=== PATIENT | female | born 1995 | race Caucasian/White ===

== ENCOUNTER 2023-02-10 08:46 | Outpatient (OUT) | payer MEDICAID, SELFPAY ==
[2023-02-10 09:23] LABS: Basophils Percent Auto 0.4 % (0.2-2.0); Eosinophils Percent Auto 0.8 % (0.9-7.0); Hematocrit 39.2 % (36.0-48.0); Hemoglobin 13.6 g/dL (12.0-16.0); Immature Granulocytes Abs Auto 0.01 10^3/uL (0.00-0.03); Immature Granulocytes Pct Auto 0.2 % (0.0-0.5); Lymphocytes Absolute Auto 1.4 10^3/uL (1.2-3.8); Lymphocytes Percent Auto 27.5 % (20.5-60.0); Mean Corpuscular HGB Conc 34.7 g/dL (29.9-35.2); Mean Corpuscular Hemoglobin 30.9 pg (26.7-34.0); Mean Corpuscular Volume 89.1 fL (81.0-99.0); Mean Platelet Volume 10.2 fL (9.5-13.5); Monocytes Absolute Auto 0.5 10^3/uL (0.3-0.8); Monocytes Percent Auto 9.2 % (1.7-12.0); Neutrophils Absolute Auto 3.1 10^3/uL (1.4-6.5); Neutrophils Percent Auto 61.9 % (43.0-75.0); Platelet Count 201 10^3/uL (150-450); Red Cell Distribution Width 12.6 % (11.0-15.0)
[2023-02-10 10:27] LABS: Estimated Average Glucose 85 mg/dL; Glycohemoglobin A1C 4.6 % (4.5-6.2)
[2023-02-10 11:20] LABS: Alanine Aminotransferase 24 U/L (14-59); Albumin Globulin Ratio 0.9; Albumin Level 3.9 g/dL (3.4-5.0); Alkaline Phosphatase 59 U/L (46-116); Anion Gap 13.4; Aspartate Amino Transferase 17 U/L (15-37); BUN Creatinine Ratio 7.9; Bilirubin Total 0.3 mg/dL (0.2-1.0); Calcium 9.3 mg/dL (8.5-10.1); Carbon Dioxide 25.3 mmol/L (21.0-32.0); Chloride 105 mmol/L (98-107); Estimated GFR (African America >60 (>=60); Estimated GFR (Non-African Ame >60 (>=60); Globulin 4.5 g/dL; Glucose 92 mg/dL (74-106); Potassium 3.7 mmol/L (3.5-5.1); Sodium 140 mmol/L (136-145); Total Protein 8.4 g/dL (6.4-8.2)
[2023-02-10 11:29] LABS: Chol HDL Ratio 2.6; Cholesterol 185 mg/dL (<=200); HDL Cholesterol 71 mg/dL (40-60); Thyroid Stimulating Hormone 4.024 uIU/mL (0.358-3.740); Triglycerides 117 mg/dL (<=150); VLDL CHOLESTEROL 23.4 mg/dL
[2023-02-11 04:12] LABS: RPR Non Reactive (Non Reactive)
[2023-02-11 06:09] LABS: HIV Ab/p24 Ag Screen Non Reactive (Non Reactive)
[2023-02-11 07:08] LABS: HBsAg Screen Negative (Negative); HCV Ab Non Reactive (Non Reactive); Hep A Ab, IgM Negative (Negative); Hep B Core Ab, IgM Negative (Negative)
[2023-02-11 10:10] LABS: HSV 1 IgG, Type Spec 5.13 index (0.00-0.90); HSV 2 IgG, Type Spec 1.88 index (0.00-0.90)
[2023-02-11 11:09] LABS: Insulin 9.3 uIU/mL (2.6-24.9)
== END 2023-02-10 08:47 ==
PROVIDERS: PCP Family Medicine; Visit Provider Family Medicine
DX: Z00.00 Encounter for general adult medical examination without abnormal findings (principal); J01.90 Acute sinusitis, unspecified
CPT/HCPCS: 36415; 80053; 80061; 80074; 82306; 83036; 83525; 83540; 84436; 84443; 84479; 85025; 86592; 86695; 86696; 87389

== ENCOUNTER 2023-05-05 09:34 | Outpatient (OUT) | payer MEDICAID, SELFPAY ==
--- NOTE | 2023-05-05 09:41 | US_ITS ---
The [address] [address] Patient Name: ROXIE STEEN MRN: [id number] date: 1995 Sex: F Assigned Patient Location: US Current Patient Location: Accession/Order Number: [id number] Exam Date: 05/05/2023 10:05 Report Date: 05/05/2023 16:51 At the request of: JONNY ORTA Procedure: US pelvis w/ transvaginal EXAMINATION: US pelvis w/ transvaginal HISTORY: Mennorrhagia with regular cycle N92.0 COMPARISON: No relevant comparison available. FINDINGS: Transabdominal and transvaginal images The uterus is normal in size, contour and myometrial echotexture measuring 8.2 x 4.4 x 3.7 cm. A few areas of hyperechogenicity measuring up to 3 mm, calcifications are favored, nonspecific. The endometrium measures 5 mm, normal. The right ovary is normal measuring 2.6 x 2.0 x 1.6 cm. Normal color Doppler flow. A few scattered areas of anechoic echogenicity, the largest measuring 1.1 x 1.7 x 1.1 cm, cysts and/or follicles The left ovary is normal in appearance measuring 2.7 x 2.1x 1.7 cm. Normal color Doppler flow. Few scattered subcentimeter areas of anechoic echogenicity, follicles Small amount of free pelvic fluid likely physiologic US/US pelvis w/ transvaginal IMPRESSION: No acute abnormality Electronically authenticated by: KAILA ADAMS Date: 05/05/2023 16:51
[2023-05-05 11:30] LABS: Basophils Percent Auto 0.4 % (0.2-2.0); Eosinophils Percent Auto 0.4 % (0.9-7.0); Hematocrit 40.7 % (36.0-48.0); Hemoglobin 13.9 g/dL (12.0-16.0); Immature Granulocytes Abs Auto 0.02 10^3/uL (0.00-0.03); Immature Granulocytes Pct Auto 0.3 % (0.0-0.5); Lymphocytes Absolute Auto 1.8 10^3/uL (1.2-3.8); Lymphocytes Percent Auto 25.7 % (20.5-60.0); Mean Corpuscular HGB Conc 34.2 g/dL (29.9-35.2); Mean Corpuscular Hemoglobin 30.8 pg (26.7-34.0); Mean Platelet Volume 10.4 fL (9.5-13.5); Monocytes Absolute Auto 0.5 10^3/uL (0.3-0.8); Monocytes Percent Auto 6.3 % (1.7-12.0); Neutrophils Absolute Auto 4.8 10^3/uL (1.4-6.5); Neutrophils Percent Auto 66.9 % (43.0-75.0); Platelet Count 285 10^3/uL (150-450); Red Blood Count 4.52 10^6/uL (4.20-5.40); Red Cell Distribution Width 12.2 % (11.0-15.0); White Blood Count 7.2 10^3/uL (4.0-11.0)
[2023-05-05 12:04] LABS: Free T4 0.74 ng/dL (0.76-1.46)
[2023-05-05 12:07] LABS: Partial Thromboplastin Time 29.1 sec (22.3-36.2); Prothrombin Time 10.6 sec (9.0-11.6)
[2023-05-05 12:25] LABS: HCG Quantitative <1 mIU/mL; Thyroid Stimulating Hormone 2.288 uIU/mL (0.358-3.740)
[2023-05-05 12:50] LABS: Estimated Average Glucose 88 mg/dL; Glycohemoglobin A1C 4.7 % (4.5-6.2)
== END 2023-05-05 09:35 | disposition home or self-care (01) ==
LOC: US 09:35
PROVIDERS: PCP Family Medicine; Visit Provider Obstetrics & Gynecology
DX: N92.0 Excessive and frequent menstruation with regular cycle (principal)
CPT/HCPCS: 36415; 76830; 76856; 83036; 84439; 84443; 84702; 85025; 85610; 85730

== ENCOUNTER 2023-09-27 09:29 | Outpatient (OUT) | payer MEDICAID, SELFPAY ==
--- NOTE | 2023-09-27 09:32 | US_ITS ---
The [address] [address] Patient Name: ROXIE STEEN MRN: [id number] date: 1995 Sex: F Assigned Patient Location: US Current Patient Location: US Accession/Order Number: [id number] Exam Date: 09/27/2023 09:45 Report Date: 09/27/2023 10:46 At the request of: JONNY ORTA Procedure: US pelvis w/ transvaginal EXAM: Pelvic ultrasound HISTORY: . Pelvic Pain In Female R10.2 . COMPARISON: 05/05/2023 TECHNIQUE: Transabdominal and transvaginal scanning was performed FINDINGS: The pelvis demonstrates uterus to measure 8.1 x 4.7 x 4.1 cm. There are couple small hyperechoic areas within the myometrium most consistent with calcifications. Endometrial complex measures 5 mm. Right ovary measures 2.1 x 2.4 x 1.4 cm. Color-flow is noted. Follicles are noted. Left ovary measures 2.9 x 1.7 x 1.4 cm. Color-flow is noted. Follicles are noted. No fluid is noted in the cul-de-sac. US/US pelvis w/ transvaginal IMPRESSION: 1. Normal-appearing uterus and endometrial complex. 2. Normal-appearing ovaries. 3. No change from the previous exam. Electronically authenticated by: KAILA CRUM Date: 09/27/2023 10:46
== END 2023-09-27 09:30 | disposition home or self-care (01) ==
LOC: US 09:29
PROVIDERS: PCP Family Medicine; Visit Provider Obstetrics & Gynecology
DX: R10.2 Pelvic and perineal pain (principal)
CPT/HCPCS: 76830; 76856

== ENCOUNTER 2023-10-18 13:56 | Outpatient (REF) | payer MEDICAID, SELFPAY | END 2023-10-18 13:57 | disposition home or self-care (01) | LOC: LAB 13:56 | PROVIDERS: PCP Family Medicine; Visit Provider Obstetrics & Gynecology | DX: N92.1 Excessive and frequent menstruation with irregular cycle (principal) | CPT/HCPCS: 88305 ==

== ENCOUNTER 2023-10-28 10:24 | Outpatient (OUT) | payer MEDICAID, SELFPAY ==
--- OUTSIDE RECORDS SUMMARY | 2023-10-28 10:28 | XMS_ITS | CCD ---
Author Name Unknown Address [address] [place] [address] Organization [facility] Care Team Providers Care Leather Staker Name Role Phone TIM ., DR AVENDANO Admitting Unavailable HOY ., DR AVENDANO Primary Care Unavailable HOY ., DR AVENDANO Consulting Unavailable HOY ., DR AVENDANO Attending Unavailable KARASIK ., DR MALDONADO Attending Unavailabl e KARASIK ., DR MALDONADO Admitting Unavailabl e KARASIK ., DR MALDONADO Consulting Unavailabl e HOY ., DR AVENDANO Primary Care Unavailable HOY ., DR AVENDANO Primary Care Unavailable ANALI ., DR FULLER Admitting Unavailable ANALI ., DR FULLER Consulting Unavailable ANALI ., DR FULLER Attending Unavailable HOY ., DR AVENDANO Admitting Unavailable HOY ., DR AVENDANO Primary Care Unavailable HOY ., DR AVENDANO Attending Unavailable Linda Ness Unavailable JONNY BRIONES Attending Unavailable JONNY BRIONES Attending Unavailable Jonny Briones Attending Provider [phone] Jonny Briones Attending Unavailable Jonny Briones Admitting Unavailable Medications Current Medications Medication Drug Class(es) Dates Sig (Normalized) Sig (Original) methylPREDNISolone 4 mg oral tablet (2 sources) Corticosteroid Start: 01-21-2021 Medrol 4 MG as directed Orally As Directed for 6 days Apr, Active Completed/Discontinued Medications Medication Drug Class(es) Dates Sig (Normalized) Sig (Original) [place]ah (1 source) [place] Not-Taking Sertraline (1 source) Serotonin Reuptake Inhibitor Sertraline HCl Not-Taking Triamcinolone (1 source) Corticosteroid Start: 01-21-2021 KENALOG - 10 mg December, 40 mg Problems Active Problems Problem Classification Problem Date Documented Date Episodic/Chronic Immunizations and screening for infectious disease (1 source) Encounter for screening for human papillomavirus (HPV); Translations: [ENC SCREENING HUMAN PAPILLOMAVIRUS] Onset: 12-19-2022 Episodic Other screening for suspected conditions (not mental disorders or infectious disease) (4 sources) Encounter for screening for malignant neoplasm of cervix; Translations: [ENC SCREENING MALIG NEOPLASM CERV] Onset: 12-15-2022 Episodic Poisoning by nonmedicinal substances (1 source) Toxic effect of venom of other arthropod, accidental (unintentional), initial encounter Episodic Past or Other Problems Problem Classification Problem Date Documented Date Episodic/Chronic Other female genital disorders (4 sources) Other specified noninflammatory disorders of vagina; Translations: [OT SPEC NONINFLAMMATORY D/O VAGINA] Onset: 12-30-2021 Episodic Results Test Name Value Interpretation Reference Range Facility [facility] 10-18-2023 L Specimen: [id number] Received: 10/19/23 Status: FRANKIE Wright Num: [id number] Spec Type: Surgical Subm Dr: Jonny Briones Tissues: A Endometrium - Biopsy (ENDO EMBX) Procedures: HE/2, Gross/Micro L4 Age/ Patient Sex Location Account Attending Physician Amelia Duran 28/F LABELL [id number] Jonny Briones SPEC NUM: [id number] RECD: 10/19/23 STATUS: FRANKIE WRIGHT NUM: [id number] STEPHIE: 10/18/23- SUBM DR: Jonny Briones ENTERED: 10/19/[address]: Andrew,Lab SPEC TYPE: Surgical DEPT: ANA CRISTINA HESTER ORDERED: HE/2, Gross/Micro L4 ORDERED: HE/2, Gross/Micro L4 Pathological Diagnosis Endometrium, Biopsy: Secretory Endometrium with Features Suggestive Of Endometrial Polyp. Clinical Information Menorrhagia with irregular cycles Gross Description Received in formalin labeled with the patient's name, date of and endo (per requisition) is a 2.5 x 1.3 x 0.2 cm aggregate of hunter soft tissue fragments. Entirely submitted in one cassette labeled A1. CPT Codes 21787 Specimen: [id number] Received: 10/19/23-1319 Status: FRANKIE Wrigth Num: [id number] Spec Type: Surgical Subm Dr: Jonny Briones Tissues: A Endometrium - Biopsy (ENDO EMBX) Procedures: Rodolfo CAMPBELL/Sonia L4 Patient: Amelia Duran [id number] (Continued) Signed (signature on file) Bin Sanchez MD 10/23/232202 [facility] HELICOBACTER PYLORI AB IGGon 10-13-2022 H. PYLORI IGG ABS 0.21 Index Value Normal 0.00-0.79 T [facility] Comment on above: Result Comment: Nega tive <0.80 Equivocal 0.80 - 0.89 Positive >0.89 Performed By: #### H PYLORG #### [facility] [address] [place] [address] Dr. Ning Lentz INSULINon 10-13-2022 Insulin 13.0 uIU/mL Normal 2.6-24.9 [facility] Comment on above: Performed By: #### I NSULIN #### [facility] [address] [place] [address] Dr. Ning Lentz CBC AUTO DIFFon 10-12-2022 BASO # 0.0 103/ul Normal 0.0-0.1 [facility] Comment on above: Performed By: #### C BC #### [facility] [address] [place] [address] Dr. Ning Lentz Basophils/100 WBC (Bld) 0.4 % Normal 0.2-2.0 [facility] Comment on above: Performed By: #### C BC #### [facility] [address] [place] [address] Dr. Ning Lentz EO # 0.1 103/ul Normal 0.0-0.7 [facility] Comment on above: Performed By: #### C BC #### [facility] [address] [place] [address] Dr. Ning Lentz Eosinophils/100 WBC (Bld) 1.8 % Normal 0.9-7.0 [facility] Comment on above: Performed By: #### C BC #### [facility] [address] [place] [address] Dr. Ning Lentz Erythrocyte distribution width (RBC) [Ratio] 12.0 % Normal 11.0-15.0 [facility] Comment on above: Performed By: #### C BC #### [facility] [address] [place] [address] Dr. Ning Lentz Hematocrit (Bld) [Volume fraction] 37.8 % Normal 36.0-48.0 [facility] Comment on above: Performed By: #### C BC #### [facility] [address] [place] [address] Dr. Nnig Lentz Hemoglobin (Bld) [Mass/Vol] 13.0 g/dL Normal 12.0-16.0 [facility] Comment on above: Performed By: #### C BC #### [facility] [address] [place] [address] Dr. Ning Lentz IG # 0.01 10e3/ul Normal 0.00-0.03 [facility] Comment on above: Performed By: #### C BC #### [facility] [address] [place] [address] Dr. Nnig Lentz IG % 0.2 % Normal 0.0-0.5 [facility] Comment on above: Performed By: #### C BC #### [facility] [address] [place] [address] Dr. Ning Lentz LYMPH # 1.7 103/ul Normal 1.2-3.8 [facility] Comment on above: Performed By: #### C BC #### [facility] [address] [place] [address] Dr. Ning Lentz Lymphocytes/100 WBC (Bld) 33.9 % Normal 20.5-60.0 [facility] Comment on above: Performed By: #### C BC #### [facility] [address] [place] [address] Dr. Ning Lentz MANUAL DIFF REQ NO Normal [facility] Comment on above: Performed By: #### C BC #### [facility] [address] [place] [address] Dr. Ning Lentz MCH (RBC) [Entitic mass] 30.3 pg Normal 26.7-34.0 [facility] Comment on above: Performed By: #### C BC #### [facility] [address] [place] [address] Dr. Ning Lentz MCHC (RBC) [Mass/Vol] 34.4 g/dL Normal 29.9-35.2 [facility] Comment on above: Performed By: #### C BC #### [facility] [address] [place] [address] Dr. Ning Lentz MCV (RBC) [Entitic vol] 88.1 fL Normal 81.0-99.0 [facility] Comment on above: Performed By: #### C BC #### [facility] [address] [place] [address] Dr. Ning Lentz MONO # 0.4 103/ul Normal 0.3-0.8 [facility] Comment on above: Performed By: #### C BC #### [facility] [address] [place] [address] Dr. Ning Lentz Monocytes/100 WBC (Bld) 8.9 % Normal 1.7-12.0 [facility] Comment on above: Performed By: #### C BC #### [facility] [address] [place] [address] Dr. Ning Lentz NEUT # 2.7 103/ul Normal 1.4-6.5 [facility] Comment on above: Performed By: #### C BC #### [facility] [address] [place] [address] Dr. Ning Lentz Neutrophils/100 WBC (Bld) 54.8 % Normal 43.0-75.0 [facility] Comment on above: Performed By: #### C BC #### [facility] [address] [place] [address] Dr. Ning Lentz Platelet mean volume (Bld) [Entitic vol] 10.2 fL Normal 9.5-13.5 [facility] Comment on above: Performed By: #### C BC #### [facility] [address] [place] [address] Dr. Ning Lentz PLT 215 103/ul Normal 150-450 [facility] Comment on above: Performed By: #### C BC #### [facility] [address] [place] [address] Dr. Ning Lentz RBC 4.29 106/ul Normal 4.20-5.40 [facility] Comment on above: Performed By: #### C BC #### [facility] [address] [place] [address] Dr. Ning Lentz WBC 4.9 103/ul Normal 4.0-11.0 [facility] Comment on above: Performed By: #### C BC #### [facility] [address] [place] [address] Dr. Ning Lentz FREE THYROXINE INDEX T7on FTI 2.37 Normal 1.30-4.50 [facility] Comment on above: Performed By: #### T 7, CMP, TSH, LIPID #### [facility] [address] [place] [address] Dr. Ning Lentz T3U 30.0 % Normal 30.0-39.0 [facility] Comment on above: Performed By: #### T 7, CMP, TSH, LIPID #### [facility] [address] [place] [address] Dr. Ning Lentz T4 [Mass/Vol] 7.90 ug/dL Normal 4.80-13.90 [facility] Comment on above: Performed By: #### T 7, CMP, TSH, LIPID #### [facility] [address] [place] [address] Dr. Ning Lentz GLYCOHEMOGLOBIN A1Con 2022 ADA RECOMMENDATION SEE BELOW Normal [facility] Comment on above: Result Comment: ADA RECOMMENDED LIMIT 4.0 - 6.0 ADA THERAPEUTIC TARGET < 7.0 ACTION SUGGESTED > 7.0 Performed By: #### A 1C #### [facility] [address] [place] [address] Dr. Ning Lentz Glucose [Mass/Vol] 88 mg/dL Normal [facility] Comment on above: Performed By: #### A 1C #### [facility] [address] [place] [address] Dr. Ning Lentz HbA1c (Bld) [Mass fraction] 4.7 % Normal 4.5-6.2 [facility] Comment on above: Performed By: #### A 1C #### [facility] [address] [place] [address] Dr. Ning Lentz IRONon 10-12-2022 Iron [Mass/Vol] 131.0 ug/dL Normal 50.0-170.0 [facility] Comment on above: Performed By: #### I INDU #### [facility] [address] [address] [address] Ning Lentz LIPID PROFILEon 10-12-2022 CHOL-HDL RATIO NORM SEE BELOW Normal [facility] Comment on above: Result Comment: 3.3 - 4.4 LOW RISK 4.4 - 7.1 AVERAGE RISK 7.1 - 11.0 MODERATE RISK >11.0 HIGH RISK Performed By: #### T 7, CMP, TSH, LIPID #### [facility] [address] [address] [address] Ning Lentz Cholesterol [Mass/Vol] 169 mg/dL Normal <=200 [facility] Comment on above: Performed By: #### T 7, CMP, TSH, LIPID #### [facility] [address] [address] [address] Ning Lenzt Cholesterol in HDL [Mass/Vol] 52 mg/dL Normal 40-60 [facility] Comment on above: Performed By: #### T 7, CMP, TSH, LIPID #### [facility] [address] [address] [address] Ning Lentz Cholesterol in LDL [Mass/Vol] 84.6 mg/dL Normal [facility] Comment on above: Performed By: #### T 7, CMP, TSH, LIPID #### [facility] [address] [address] [address] Ning Lentz Cholesterol.total/Cho lesterol in HDL [Mass ratio] 3.3 {ratio} Normal [facility] Comment on above: Performed By: #### T 7, CMP, TSH, LIPID #### [facility] [address] [address] [address] Ning Lentz HDL NORMAL > or = 60 mg/dl - LOW CARDIOVASCULAR RISK <40 mg/dl - HIGH CARDIOVASCULAR RISK Normal [facility] Comment on above: Performed By: #### T 7, CMP, TSH, LIPID #### [facility] [address] [place] [address] Dr. Ning Lentz LDL CALC NORMAL SEE BELOW Normal [facility] Comment on above: Result Comment: <100 mg/dl OPTIMAL 100 - 129 mg/dl NEAR OR ABOVE OPTIMAL 130 - 159 mg/dl BORDERLINE HIGH 160 - 189 mg/dl HIGH >190 mg/dl VERY HIGH Performed By: #### T 7, CMP, TSH, LIPID #### [facility] [address] [address] [address] Ning Lentz Triglyceride [Mass/Vol] 162 mg/dL Critically high <=150 [facility] Comment on above: Performed By: #### T 7, CMP, TSH, LIPID #### [facility] [address] [address] [address] Ning Lentz VLDL CALC 32.4 mg/dL Normal [facility] Comment on above: Performed By: #### T 7, CMP, TSH, LIPID #### [facility] [address] [address] [address] Ning Lentz PROF 14(COMP METB)on 023 Albumin [Mass/Vol] 3.9 g/dL Normal 3.4-5.0 [facility] Comment on above: Performed By: #### T 7, CMP, TSH, LIPID #### [facility] [address] [address] [address] Ning Lentz Albumin/Globulin [Mass ratio] 1.0 {ratio} Normal [facility] Comment on above: Performed By: #### T 7, CMP, TSH, LIPID #### [facility] [address] [place] [address] Dr. Ning Lentz ALP [Catalytic activity/Vol] 70 U/L Normal 46-116 [facility] Comment on above: Performed By: #### T 7, CMP, TSH, LIPID #### [facility] [address] [address] [address] Ning Lentz ALT [Catalytic activity/Vol] 34 U/L Normal 14-59 [facility] Comment on above: Performed By: #### T 7, CMP, TSH, LIPID #### [facility] [address] [address] [address] Ning Lentz Anion gap [Moles/Vol] 12.5 mmol/L Normal [facility] Comment on above: Performed By: #### T 7, CMP, TSH, LIPID #### [facility] [address] [place] [address] Dr. Ning Lentz AST [Catalytic activity/Vol] 22 U/L Normal 15-37 [facility] Comment on above: Performed By: #### T 7, CMP, TSH, LIPID #### [facility] [address] [address] [address] Ning Lentz Bilirubin [Mass/Vol] 0.3 mg/dL Normal 0.2-1.0 [facility] Comment on above: Performed By: #### T 7, CMP, TSH, LIPID #### [facility] [address] [address] [address] Ning Lentz Calcium [Mass/Vol] 9.4 mg/dL Normal 8.5-10.1 [facility] Comment on above: Performed By: #### T 7, CMP, TSH, LIPID #### [facility] [address] [address] [address] Ning Lentz Chloride [Moles/Vol] 104 mmol/L Normal 98-107 [facility] Comment on above: Performed By: #### T 7, CMP, TSH, LIPID #### [facility] [address] [address] [address] Ning Lentz CO2 [Moles/Vol] 29.3 mmol/L Normal 21.0-32.0 [facility] Comment on above: Performed By: #### T 7, CMP, TSH, LIPID #### [facility] [address] [address] [address] Ning Lentz Creatinine [Mass/Vol] 0.77 mg/dL Normal 0.55-1.02 [facility] Comment on above: Performed By: #### T 7, CMP, TSH, LIPID #### [facility] [address] [address] [address] Ning Lentz EGFR-AF SYRIAN >60 Normal >=60 [facility] Comment on above: Performed By: #### T 7, CMP, TSH, LIPID #### [facility] [address] [address] [address] Ning Lentz EGFR-NON AF SYRIAN >60 Normal >=60 [facility] Comment on above: Performed By: #### T 7, CMP, TSH, LIPID #### [facility] [address] [address] [address] Ning Lentz Globulin (S) [Mass/Vol] 3.8 g/dL Normal [facility] Comment on above: Performed By: #### T 7, CMP, TSH, LIPID #### [facility] [address] [place] [address] Dr. Ning Lentz Glucose [Mass/Vol] 97 mg/dL Normal 74-106 [facility] Comment on above: Performed By: #### T 7, CMP, TSH, LIPID #### [facility] [address] [place] [address] Dr. Ning Lentz Potassium [Moles/Vol] 3.8 mmol/L Normal 3.5-5.1 [facility] Comment on above: Performed By: #### T 7, CMP, TSH, LIPID #### [facility] [address] [place] [address] Dr. Ning Lentz Protein [Mass/Vol] 7.7 g/dL Normal 6.4-8.2 [facility] Comment on above: Performed By: #### T 7, CMP, TSH, LIPID #### [facility] [address] [place] [address] Dr. Ning Lentz Sodium [Moles/Vol] 142 mmol/L Normal 136-145 [facility] Comment on above: Performed By: #### T 7, CMP, TSH, LIPID #### [facility] [address] [place] [address] Dr. Ning Lentz Urea nitrogen [Mass/Vol] 8.0 mg/dL Normal 7.0-18.0 [facility] Comment on above: Performed By: #### T 7, CMP, TSH, LIPID #### [facility] [address] [place] [address] Dr. Ning Lentz Urea nitrogen/Creatinine [Mass ratio] 10.4 mg/mg Normal [facility] Comment on above: Performed By: #### T 7, CMP, TSH, LIPID #### [facility] [address] [place] [address] Dr. Ning DOMINGUEZon 10-12-2022 TSH 4.458 uIU/mL Critically high 0.358-3.740 [facility] Comment on above: Performed By: #### T 7, CMP, TSH, LIPID #### [facility] [address] [address] [address] 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 Typing was confirmed by monoclonal antibody microscopic immunofluorescence. Performed By: #### H SVCUL #### [facility] [address] [address] [address] Ning Lentz Vital Signs Date Time Vital Sign Value Performing Clinician Facility 05-04-2023 15:30-0400 Body height 158.75 cm Linda Thi Other [facility] Other 05-04-2023 15:30-0400 Body mass index (BMI) [Ratio] 23.68 kg/m2 Linda Thi Other [facility] Other 05-04-2023 15:30-0400 Body temperature 99 [degF] Linda Singhmond Other [facility] Other 05-04-2023 15:30-0400 Body weight 59.69 kg Linda Thi Other [facility] Other 05-04-2023 15:30-0400 Diastolic blood pressure 60 mm[Hg] Linda Thi Other [facility] Other 05-04-2023 15:30-0400 Respiratory rate 18 /min Linda Thi Other [facility] Other 05-04-2023 15:30-0400 SaO2% (BldA) [Mass fraction] 98 % Linda Ness Other [facility] Other 05-04-2023 15:30-0400 Systolic blood pressure 122 mm[Hg] Linda Ness Other [facility] Other Encounters Encounter Date Encounter Type Care Provider Facility Start: 10-18-2023 End: 10-18-2023 ambulatory Jonny Meneseso Facility:[facility] Start: 10-18-2023 End: 10-18-2023 ambulatory JONNY MENESESO Not Available Start: 10-18-2023 End: 10-18-2023 Departed Referred Jonny Briones Work Phone: [facility] Start: 09-21-2023 End: 09-21-2023 ambulatory JONNY MENESESO Not Available Start: 05-04-2023 End: 05-04-2023 ambulatory Linda Ness Other [facility] Other Start: 05-04-2023 Office outpatient vi sit 15 minutes Linda Ness [facility] Start: 12-15-2022 End: 12-15-[address] ROMANA DUMONT . Facility:[facility] Start: 10-28-[address] ROMANA DUMONT . Facili ty:[facility] Start: 10-15-2022 Encounter for genera l adult medical examination without abnormal findings DR ROMANA DUMONT . [facility] Start: 10-12-2022 End: 10-13-[address] ROMANA DUMONT . Facility:[facility] Start: 10-12-2022 End: 10-13-2022 Encounter for general adult medical examination without abnormal findings DR ROMANA DUMONT . Facility:[facility] Start: 12-30-2021 End: 12-30-[address] JOEL SILVER . Facility:[facility] Payers Date Payer Category Payer Self-pay 1995 Unknown [id number] 2.16.84 [id number] 1993 Unknown [id number] 2.16.84 [id number] 1993 Unknown [id number] 2.16.84 [id number] 1993 Unknown [id number] 2.16.84 [id number] 1993 Unknown [id number] 2.16.84 [id number] 1993 Unknown [id number] 2.16.84 [id number] 1961 Medicaid [id number] 1961 Self-pay [id number] 1961 Unknown [id number] Unknown [id number] Social History Date Type Detail Facility Unknown if ever smoked [facility] Other Sex Assigned At Sex Assigned At Bir th [facility] Other Start: 1995 Sex Assigned At Female F [facility] Evaluation note 05-04-2023 Note Date & Type Note Facility 05-04-2023 Evaluation note Encounter Date Diagnosis Assessment Notes Apr, Insect stings, accidental or unintentional, initial encounter (ICD-10 - T63.481A) Insect bites and stings home care material was printed Drink plenty fluids, get plenty of rest. Take the Medrol Dosepak as prescribed until gone. You may take Zyrtec or Claritin as needed for itching. Apply Benadryl cream to the area for itching as needed. Follow-up with your family physician if no improvement in 2 to 3 days [facility] Other Evaluation note Note Date & Type Note Facility Evaluation note No assessment information availa [facility] Work Phone: History general Narrative - Reported Note Date & Type Note Facility History general Narrative - Reported Type Medical History chronic depression Medical History anxiety Surgical History appendectomy Surgical History LEEP Surgical History PE tubes Hospitalization History See Above [facility] Other Summary Purpose Family History No Family History Records FoundNo Family History Records FoundNo Family History Records Found Advance Directives No Advanced Directives Records FoundNo Advanced Directives Records FoundNo Advanced Directives Records Found Additional Source Comments INFORMATION SOURCE (unrecogn ized section and content) DATE CREATED AUTHOR 12/19/2022 [facility] DATE CREATED AUTHOR AUTHOR'S ORGANIZ ATION 10/19/[address] [facility] EPIC DATE CREATED AUTHOR AUTHOR'S ORGANIZ ATION 10/27/2023 [facility] REASON FOR VISIT (unrecogniz ed section and content) STUNG ON LEFT ARM, SWELLED U P, RED AND WARM TO THE TOUCH Care Teams (unrecognized sec tion and content) Team Status: Inactive Member Role Status Dates Jonny Briones Attending Provider Active Start: 2023 End: October 18, 2023 Goals (unrecognized section and content) Goals may be documented in a n alternate section FOR RECORDS PERTAINING TO PATIENTS WHO ARE OR HAVE BEEN ENROLLED IN A CHEMICAL DEPENDENCY/SUBSTANCEABUSE PROGRAM, SOME INFORMATION MAY BE OMITTED. This clinical summary was aggregated from multiple sources. Caution should be exercised in using it in the provision of clinical care. This summary normalizes information from multiple sources, and as a consequence, information in this document may materially change the coding, format and clinical context of patient data. In addition, data may be omitted in some cases. CLINICAL DECISIONS SHOULD BE BASED ON THE PRIMARY CLINICAL RECORDS. [facility]. provides no warranty or guarantee of the accuracy or completeness of information in this document.
== END 2023-10-28 10:25 | disposition home or self-care (01) ==
LOC: PST 10:25
PROVIDERS: PCP Family Medicine; Visit Provider Obstetrics & Gynecology
DX: Z01.818 Encounter for other preprocedural examination (principal); Z30.2 Encounter for sterilization; N92.1 Excessive and frequent menstruation with irregular cycle; R10.2 Pelvic and perineal pain; N93.9 Abnormal uterine and vaginal bleeding, unspecified

== ENCOUNTER 2023-11-07 10:37 | Day surgery (SDC) | payer MEDICAID, SELFPAY ==
[2023-10-28 11:15] VITALS: BP 102/69; PULSE 68; RESP 16; TEMP 36.3; O2SAT 100; BMI 23.2
[2023-11-07] VITALS (13 sets, daily range): BP systolic 116–143; BP diastolic 66–86; PULSE 58–108; RESP 16–21; TEMP 36.2–36.4; O2SAT 96–100; BMI 24.8
--- OUTSIDE RECORDS SUMMARY | 2023-11-07 10:43 | XMS_ITS | CCD ---
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 Name Role Phone TIM ., DR AVENDANO [...] BRIONES Attending Unavailable Jonny Briones Attending Provider [phone] Jonny Briones Attending Unavailable Jonny Briones Admitting Unavailable Medications Current Medications Medication Drug Class(es) Dates Sig (Normalized) Sig (Original) methylPREDNISolone 4 mg oral tablet (2 sources) Corticosteroid Start: 01-21-2021 Medrol 4 MG as directed Orally As Directed for 6 days Apr, Active Completed/Discontinued Medications Medication Drug Class(es) Dates Sig (Normalized) Sig (Original) [place] (1 source) [place] Not-Taking Sertraline (1 source) Serotonin Reuptake Inhibitor [...] Test Name Value Interpretation Reference Range Facility [facility] 10-18-2023 L Specimen: [id number] Received: 10/19/23 Status: FRANKIE Wright Num: [id number] Spec Type: Surgical Subm Dr: Jonny Briones Tissues: A Endometrium - Biopsy (ENDO EMBX) Procedures: HE/2, Gross/Micro L4 Age/ Patient Sex Location Account Attending Physician Amelia Duran 28/F LABELL [id number] Jonny Briones SPEC NUM: [id number] RECD: 10/19/23 STATUS: FRANKIE WRIGHT NUM: [id number] STEPHIE: 10/18/23- SUBM DR: Jonny Briones ENTERED: [...] in one cassette labeled A1. CPT Codes 98869 Specimen: [id number] Received: 10/19/23-1319 Status: FRANKIE Wright Num: [id number] Spec Type: Surgical Subm Dr: Jonny Briones Tissues: A Endometrium - Biopsy (ENDO EMBX) Procedures: Rodolfo CAMPBELL/Sonia L4 Patient: Amelia Duran [id number] (Continued) Signed (signature on file) Bin Sanchez MD 10/23/232202 [facility] HELICOBACTER PYLORI AB IGGon 10-13-2022 H. PYLORI IGG ABS 0.21 Index Value Normal 0.00-0.79 T [facility] Comment on above: Result Comment: Nega tive <0.80 Equivocal 0.80 - 0.89 Positive >0.89 Performed By: #### H PYLORG #### [facility] [address] [place] [address] Dr. Ning Lentz INSULINon 10-13-2022 Insulin 13.0 uIU/mL Normal 2.6-24.9 [facility] Comment on above: Performed By: #### I NSULIN #### [facility] [address] [place] [address] Dr. Ning Lentz CBC AUTO DIFFon 10-12-2022 BASO # 0.0 103/ul Normal 0.0-0.1 [facility] Comment on above: Performed By: #### C BC #### [facility] [address] [place] [address] Dr. Ning Lentz Basophils/100 WBC (Bld) 0.4 % Normal 0.2-2.0 [facility] Comment on above: Performed By: #### C BC #### [facility] [address] [place] [address] Dr. Ning Lentz EO # 0.1 103/ul Normal 0.0-0.7 [facility] Comment on above: Performed By: #### C BC #### [facility] [address] [place] [address] Dr. Ning Lentz Eosinophils/100 WBC (Bld) 1.8 % Normal 0.9-7.0 [facility] Comment on above: Performed By: #### C BC #### [facility] [address] [place] [address] Dr. Ning Lentz Erythrocyte distribution width (RBC) [Ratio] 12.0 % Normal 11.0-15.0 [facility] Comment on above: Performed By: #### C BC #### [facility] [address] [place] [address] Dr. Ning Lentz Hematocrit (Bld) [Volume fraction] 37.8 % Normal 36.0-48.0 [facility] Comment on above: Performed By: #### C BC #### [facility] [address] [place] [address] Dr. Ning Lentz Hemoglobin (Bld) [Mass/Vol] 13.0 g/dL Normal 12.0-16.0 [facility] Comment on above: Performed By: #### C BC #### [facility] [address] [place] [address] Dr. Ning Lentz IG # 0.01 10e3/ul Normal 0.00-0.03 [facility] Comment on above: Performed By: #### C BC #### [facility] [address] [place] [address] Dr. Ning Lentz IG % 0.2 % Normal 0.0-0.5 [facility] Comment on above: Performed By: #### C BC #### [facility] [address] [place] [address] Dr. Ning Lentz LYMPH # 1.7 103/ul Normal 1.2-3.8 [facility] Comment on above: Performed By: #### C BC #### [facility] [address] [place] [address] Dr. Ning Lentz Lymphocytes/100 WBC (Bld) 33.9 % Normal 20.5-60.0 [facility] Comment on above: Performed By: #### C BC #### [facility] [address] [place] [address] Dr. Ning Lentz MANUAL DIFF REQ NO Normal [facility] Comment on above: Performed By: #### C BC #### [facility] [address] [place] [address] Dr. Ning Lentz MCH (RBC) [Entitic mass] 30.3 pg Normal 26.7-34.0 [facility] Comment on above: Performed By: #### C BC #### [facility] [address] [place] [address] Dr. Ning Lentz MCHC (RBC) [Mass/Vol] 34.4 g/dL Normal 29.9-35.2 [facility] Comment on above: Performed By: #### C BC #### [facility] [address] [place] [address] Dr. Ning Lentz MCV (RBC) [Entitic vol] 88.1 fL Normal 81.0-99.0 [facility] Comment on above: Performed By: #### C BC #### [facility] [address] [place] [address] Dr. Ning Lentz MONO # 0.4 103/ul Normal 0.3-0.8 [facility] Comment on above: Performed By: #### C BC #### [facility] [address] [place] [address] Dr. Ning Lentz Monocytes/100 WBC (Bld) 8.9 % Normal 1.7-12.0 [facility] Comment on above: Performed By: #### C BC #### [facility] [address] [place] [address] Dr. Ning Lentz NEUT # 2.7 103/ul Normal 1.4-6.5 [facility] Comment on above: Performed By: #### C BC #### [facility] [address] [place] [address] Dr. Ning Lentz Neutrophils/100 WBC (Bld) 54.8 % Normal 43.0-75.0 [facility] Comment on above: Performed By: #### C BC #### [facility] [address] [place] [address] Dr. Ning Lentz Platelet mean volume (Bld) [Entitic vol] 10.2 fL Normal 9.5-13.5 [facility] Comment on above: Performed By: #### C BC #### [facility] [address] [place] [address] Dr. Ning Lentz PLT 215 103/ul Normal 150-450 [facility] Comment on above: Performed By: #### C BC #### [facility] [address] [place] [address] Dr. Ning Lentz RBC 4.29 106/ul Normal 4.20-5.40 [facility] Comment on above: Performed By: #### C BC #### [facility] [address] [place] [address] Dr. Ning Lentz WBC 4.9 103/ul Normal 4.0-11.0 [facility] Comment on above: Performed By: #### C BC #### [facility] [address] [place] [address] Dr. Ning Lentz FREE THYROXINE INDEX T7on FTI 2.37 Normal 1.30-4.50 [facility] Comment on above: Performed By: #### T 7, CMP, TSH, LIPID #### [facility] [address] [place] [address] Dr. Ning Lentz T3U 30.0 % Normal 30.0-39.0 [facility] Comment on above: Performed By: #### T 7, CMP, TSH, LIPID #### [facility] [address] [place] [address] Dr. Ning Lentz T4 [Mass/Vol] 7.90 ug/dL Normal 4.80-13.90 [facility] Comment on above: Performed By: #### T 7, CMP, TSH, LIPID #### [facility] [address] [place] [address] Dr. Ning Lentz GLYCOHEMOGLOBIN A1Con 2022 ADA RECOMMENDATION SEE BELOW Normal [facility] Comment on above: Result Comment: ADA RECOMMENDED LIMIT 4.0 - 6.0 ADA THERAPEUTIC TARGET < 7.0 ACTION SUGGESTED > 7.0 Performed By: #### A 1C #### [facility] [address] [place] [address] Dr. Ning Lentz Glucose [Mass/Vol] 88 mg/dL Normal [facility] Comment on above: Performed By: #### A 1C #### [facility] [address] [place] [address] Dr. Ning Lentz HbA1c (Bld) [Mass fraction] 4.7 % Normal 4.5-6.2 [facility] Comment on above: Performed By: #### A 1C #### [facility] [address] [place] [address] Dr. Ning Lentz IRONon 10-12-2022 Iron [Mass/Vol] 131.0 ug/dL Normal 50.0-170.0 [facility] Comment on above: Performed By: #### I INDU #### [facility] [address] [address] [address] Ning Lentz LIPID PROFILEon 10-12-2022 CHOL-HDL RATIO NORM SEE BELOW Normal [facility] Comment on above: Result Comment: 3.3 - 4.4 LOW RISK 4.4 - 7.1 AVERAGE RISK 7.1 - 11.0 MODERATE RISK >11.0 HIGH RISK Performed By: #### T 7, CMP, TSH, LIPID #### [facility] [address] [address] [address] Ning Lentz Cholesterol [Mass/Vol] 169 mg/dL Normal <=200 [facility] Comment on above: Performed By: #### T 7, CMP, TSH, LIPID #### [facility] [address] [address] [address] Ning Lentz Cholesterol in HDL [Mass/Vol] 52 mg/dL Normal 40-60 [facility] Comment on above: Performed By: #### T 7, CMP, TSH, LIPID #### [facility] [address] [address] [address] Ning Lentz Cholesterol in LDL [Mass/Vol] 84.6 mg/dL Normal [facility] Comment on above: Performed By: #### T 7, CMP, TSH, LIPID #### [facility] [address] [address] [address] Ning Lentz Cholesterol.total/Cho lesterol in HDL [Mass ratio] 3.3 {ratio} Normal [facility] Comment on above: Performed By: #### T 7, CMP, TSH, LIPID #### [facility] [address] [address] [address] Ning Lentz HDL NORMAL > or = 60 mg/dl - LOW CARDIOVASCULAR RISK <40 mg/dl - HIGH CARDIOVASCULAR RISK Normal [facility] Comment on above: Performed By: #### T 7, CMP, TSH, LIPID #### [facility] [address] [place] [address] Dr. Ning Lentz LDL CALC NORMAL SEE BELOW Normal [facility] Comment on above: Result Comment: <100 mg/dl OPTIMAL 100 - 129 mg/dl NEAR OR ABOVE OPTIMAL 130 - 159 mg/dl BORDERLINE HIGH 160 - 189 mg/dl HIGH >190 mg/dl VERY HIGH Performed By: #### T 7, CMP, TSH, LIPID #### [facility] [address] [address] [address] Ning Lentz Triglyceride [Mass/Vol] 162 mg/dL Critically high <=150 [facility] Comment on above: Performed By: #### T 7, CMP, TSH, LIPID #### [facility] [address] [address] [address] Ning Lentz VLDL CALC 32.4 mg/dL Normal [facility] Comment on above: Performed By: #### T 7, CMP, TSH, LIPID #### [facility] [address] [address] [address] Ning Lentz PROF 14(COMP METB)on 023 Albumin [Mass/Vol] 3.9 g/dL Normal 3.4-5.0 [facility] Comment on above: Performed By: #### T 7, CMP, TSH, LIPID #### [facility] [address] [address] [address] Ning Lentz Albumin/Globulin [Mass ratio] 1.0 {ratio} Normal [facility] Comment on above: Performed By: #### T 7, CMP, TSH, LIPID #### [facility] [address] [place] [address] Dr. Ning Lentz ALP [Catalytic activity/Vol] 70 U/L Normal 46-116 [facility] Comment on above: Performed By: #### T 7, CMP, TSH, LIPID #### [facility] [address] [address] [address] Ning Lentz ALT [Catalytic activity/Vol] 34 U/L Normal 14-59 [facility] Comment on above: Performed By: #### T 7, CMP, TSH, LIPID #### [facility] [address] [address] [address] Ning Lentz Anion gap [Moles/Vol] 12.5 mmol/L Normal [facility] Comment on above: Performed By: #### T 7, CMP, TSH, LIPID #### [facility] [address] [place] [address] Dr. Ning Lentz AST [Catalytic activity/Vol] 22 U/L Normal 15-37 [facility] Comment on above: Performed By: #### T 7, CMP, TSH, LIPID #### [facility] [address] [address] [address] Ning Lentz Bilirubin [Mass/Vol] 0.3 mg/dL Normal 0.2-1.0 [facility] Comment on above: Performed By: #### T 7, CMP, TSH, LIPID #### [facility] [address] [address] [address] Ning Lentz Calcium [Mass/Vol] 9.4 mg/dL Normal 8.5-10.1 [facility] Comment on above: Performed By: #### T 7, CMP, TSH, LIPID #### [facility] [address] [address] [address] Ning Lentz Chloride [Moles/Vol] 104 mmol/L Normal 98-107 [facility] Comment on above: Performed By: #### T 7, CMP, TSH, LIPID #### [facility] [address] [address] [address] Ning Lentz CO2 [Moles/Vol] 29.3 mmol/L Normal 21.0-32.0 [facility] Comment on above: Performed By: #### T 7, CMP, TSH, LIPID #### [facility] [address] [address] [address] Ning Lentz Creatinine [Mass/Vol] 0.77 mg/dL Normal 0.55-1.02 [facility] Comment on above: Performed By: #### T 7, CMP, TSH, LIPID #### [facility] [address] [address] [address] Ning Lentz EGFR-AF PRYDEINIG >60 Normal >=60 [facility] Comment on above: Performed By: #### T 7, CMP, TSH, LIPID #### [facility] [address] [address] [address] Ning Lentz EGFR-NON AF PRYDEINIG >60 Normal >=60 [facility] Comment on above: Performed By: #### T 7, CMP, TSH, LIPID #### [facility] [address] [address] [address] Ning Lentz Globulin (S) [Mass/Vol] 3.8 g/dL Normal [facility] Comment on above: Performed By: #### T 7, CMP, TSH, LIPID #### [facility] [address] [place] [address] Dr. Ning Lentz Glucose [Mass/Vol] 97 mg/dL Normal 74-106 [facility] Comment on above: Performed By: #### T 7, CMP, TSH, LIPID #### [facility] [address] [place] [address] Dr. Ning Lentz Potassium [Moles/Vol] 3.8 mmol/L Normal 3.5-5.1 [facility] Comment on above: Performed By: #### T 7, CMP, TSH, LIPID #### [facility] [address] [place] [address] Dr. Ning Lentz Protein [Mass/Vol] 7.7 g/dL Normal 6.4-8.2 [facility] Comment on above: Performed By: #### T 7, CMP, TSH, LIPID #### [facility] [address] [place] [address] Dr. Ning Lentz Sodium [Moles/Vol] 142 mmol/L Normal 136-145 [facility] Comment on above: Performed By: #### T 7, CMP, TSH, LIPID #### [facility] [address] [place] [address] Dr. Ning Lentz Urea nitrogen [Mass/Vol] 8.0 mg/dL Normal 7.0-18.0 [facility] Comment on above: Performed By: #### T 7, CMP, TSH, LIPID #### [facility] [address] [place] [address] Dr. Ning Lentz Urea nitrogen/Creatinine [Mass ratio] 10.4 mg/mg Normal [facility] Comment on above: Performed By: #### T 7, CMP, TSH, LIPID #### [facility] [address] [place] [address] Dr. Ning DOMINGUEZon 10-12-2022 TSH 4.458 uIU/mL Critically high 0.358-3.740 [facility] Comment on above: Performed By: #### T 7, CMP, TSH, LIPID #### [facility] [address] [address] [address] 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 Typing was confirmed by monoclonal antibody microscopic immunofluorescence. Performed By: #### H SVCUL #### [facility] [address] [address] [address] Ning Lentz Vital Signs Date Time Vital Sign Value Performing Clinician Facility 05-04-2023 15:30-0400 Body height 158.75 cm Linda Thi Other [facility] Other 05-04-2023 15:30-0400 Body mass index (BMI) [Ratio] 23.68 kg/m2 Linda Thi Other [facility] Other 05-04-2023 15:30-0400 Body temperature 99 [degF] Linda Singhmond Other [facility] Other 05-04-2023 15:30-0400 Body weight 59.69 kg Linda Thi Other [facility] Other 05-04-2023 15:30-0400 Diastolic blood pressure 60 mm[Hg] Linda Thi Other [facility] Other 05-04-2023 15:30-0400 Respiratory rate 18 /min Linda Thi Other [facility] Other 05-04-2023 15:30-0400 SaO2% (BldA) [Mass fraction] 98 % Linda Ness Other [facility] Other 05-04-2023 15:30-0400 Systolic blood pressure 122 mm[Hg] Linda Ness Other [facility] Other Encounters Encounter Date Encounter Type Care Provider Facility Start: 10-18-2023 End: 10-18-2023 ambulatory Jonny Meneseso Facility:[facility] Start: 10-18-2023 End: 10-18-2023 ambulatory JONNY MENESESO Not Available Start: 10-18-2023 End: 10-18-2023 Departed Referred Jonny Briones Work Phone: [facility] Start: 09-21-2023 End: 09-21-2023 ambulatory JONNY MENESESO Not Available Start: 05-04-2023 End: 05-04-2023 ambulatory Linda Ness Other [facility] Other Start: 05-04-2023 Office outpatient vi sit 15 minutes Linda Ness [facility] Start: 12-15-2022 End: 12-15-[address] ROMANA DUMONT . Facility:[facility] Start: 10-28-[address] ROMANA DUMONT . Facili ty:[facility] Start: 10-15-2022 Encounter for genera l adult medical examination without abnormal findings DR ROMANA DUMONT . [facility] Start: 10-12-2022 End: 10-13-[address] ROMANA DUMONT . Facility:[facility] Start: 10-12-2022 End: 10-13-2022 Encounter for general adult medical examination without abnormal findings DR ROMANA DUMONT . Facility:[facility] Start: 12-30-2021 End: 12-30-[address] JOEL SILVER . Facility:[facility] Payers Date Payer Category Payer Self-pay 1995 Unknown [id number] 2.16.84 [id number] 1995 Unknown [id number] 2.16.84 [id number] 1995 Unknown [id number] 2.16.84 [id number] 1995 Unknown [id number] 2.16.84 [id number] 1993 Unknown [id number] 2.16.84 [id number] 1993 Unknown [id number] 2.16.84 [id number] 1961 Medicaid [id number] 1961 Self-pay [id number] 1961 Unknown [id number] Unknown [id number] Social History Date Type Detail Facility Unknown if ever smoked [facility] Other Sex Assigned At Sex Assigned At Bir th [facility] Other Start: 1995 Sex Assigned At Female F [facility] Evaluation note 05-04-2023 Note Date & Type [...] no improvement in 2 to 3 days [facility] Other Evaluation note Note Date & Type Note Facility Evaluation note No assessment information availa [facility] Work Phone: History general Narrative - Reported Note Date & Type Note Facility History general Narrative - Reported Type Medical History chronic depression Medical History anxiety Surgical History appendectomy Surgical History LEEP Surgical History PE tubes Hospitalization History See Above [facility] Other Summary Purpose Family History No Family History Records FoundNo Family History Records FoundNo Family History Records Found Advance Directives No Advanced Directives Records FoundNo Advanced Directives Records FoundNo Advanced Directives Records Found Additional Source Comments INFORMATION SOURCE (unrecogn ized section and content) DATE CREATED AUTHOR 12/19/2022 [facility] DATE CREATED AUTHOR AUTHOR'S ORGANIZ ATION 10/19/2023 [facility] EPIC DATE CREATED AUTHOR AUTHOR'S ORGANIZ ATION 10/27/2023 [facility] REASON FOR VISIT (unrecogniz ed section [...] BE BASED ON THE PRIMARY CLINICAL RECORDS. [employer] [facility]. provides no warranty or guarantee of the accuracy or completeness of information in this document.
[2023-11-07 11:01] LABS: Basophils Percent Auto 0.6 % (0.2-2.0); Eosinophils Percent Auto 0.8 % (0.9-7.0); Hematocrit 38.9 % (36.0-48.0); Hemoglobin 13.6 g/dL (12.0-16.0); Immature Granulocytes Abs Auto 0.02 10^3/uL (0.00-0.03); Immature Granulocytes Pct Auto 0.4 % (0.0-0.5); Lymphocytes Absolute Auto 1.6 10^3/uL (1.2-3.8); Lymphocytes Percent Auto 31.3 % (20.5-60.0); Mean Corpuscular Hemoglobin 31.3 pg (26.7-34.0); Mean Corpuscular Volume 89.6 fL (81.0-99.0); Mean Platelet Volume 10.2 fL (9.5-13.5); Monocytes Absolute Auto 0.5 10^3/uL (0.3-0.8); Monocytes Percent Auto 9.8 % (1.7-12.0); Neutrophils Percent Auto 57.1 % (43.0-75.0); Platelet Count 222 10^3/uL (150-450); Red Blood Count 4.34 10^6/uL (4.20-5.40); Red Cell Distribution Width 11.7 % (11.0-15.0); White Blood Count 5.2 10^3/uL (4.0-11.0)
[2023-11-07 11:13] LABS: HCG Quantitative <1 mIU/mL
[2023-11-07] MEDS: LACTATED RINGER'S SOLUTION 1,000 ML 50 ML IV (11:30)
[2023-11-07] MEDS: SCOPOLAMINE 1 MG/3 DAYS TRANSDERM PATCH 1 PATCH TD (11:34)
--- NOTE | 2023-11-07 13:19 | P.ON_ITS ---
Brief Operative Note Date of procedure: 11/07/23 Pre-op diagnosis: menorrhagia, desires permanent sterilization, multiparity Post-op diagnosis: same as pre-op Procedure: NAME OF PROCEDURE: robotic assisted Laparoscopic bilateral salpingectomy, with Brina endometrial ablation with hysteroscopy PROCEDURE: The patient was taken back to the OR where she was prepped and draped in the normal sterile fashion after being placed in the dorsal lithotomy position, after being placed under general anesthesia without difficulty. a weighted speculum was then placed into the vagina. Pap and endometrial bx were performed without difficultyThe anterior lip was grasped with a single tooth tenaculum. The patient was then sounded to approximatley 9cm. The patient was gently sounded using Hegar dilators and the hysteroscope was passed through the cervix into the uterus where both ostia were seen. No gross evidence of polyps, fibroids or malignancy. The cervical length was noted to be 4cm. The Brina ablation apparatus was set to approximately 5cm in length. This was placed in through the cervix and into the uterus. After the seal was tested, at that time the total ablation of 120 seconds was performed with the Brina without difficulty. All instruments were removed from the vagina. A wet sponge stick was placed into the patient's vagina. Attention was then turned to the patient's abdomen, where a scalpel was used to make a small infraumbilical incision. The S retractors were then used to dissect the underlying layers until the fascia could be seen. The fascia was then grasped with Jessica clamps and tented up. A knife was then used to make a small incision to the fascia. The muscle was identified, at that time two sutures of #0 Vicryl on a GI needlewas then used and placed through the fascia. The peritoneum was then identified and entered bluntly. The 10-4 Ny was then placed into the patient's abdomen. This was confirmed with direct visualization of the bowel, using the laparoscope. The patient's abdomen was then insufflated using approximately 4 liters of CO2 gas. Survey of the patient's abdomen demonstrated normal appearing ovaries, uterus and tubes. A second and third lateral robotic ports, which was 8mm in size, was then placed laterally after incision was made in the skin under direct visualization. the robotic arms were engaged. The patient's tube on the patient's right side was identified. The tube was then tented up using a grasper. The ligasure was used to transect and coagulate the mesosalpingx from the fimbriated end to the insertion at the uterus, the tube was amputated and removed in its entirety.? Excellent hemostasis was noted. ?This was performed on the contralateral sideas well. The lateral ports were then moved under direct visualization with excellent hemostasis. The abdomen was deinsufflated. All instruments were removed from the patient's abdomen. The fascia was closed using the #0 Vicryl on GI needle. The skin was closed using 4- 0 Vicryl subcuticularly. All instruments were removed from the patient's vagina as well. The patient was taken out of the dorsal lithotomy position and placed in the supine position and taken to recovery in stable condition. Sponge, lap and needle counts were correct x2. ??? Anesthesia: KATRIN Surgeon: Waqar Briones [employer] Assembler: Jenni Saini Estimated blood loss (mL): 5 Pathology: other (tubes) Condition: stable Disposition: PACU Urinary Catheter Management Urinary Catheter Management Urethral: Cath placed during this visit: no
[2023-11-07] MEDS: HYDROCODONE/ACET 5-325 MG TABLET 1 TAB PO (14:20)
[2023-11-07] MEDS: LACTATED RINGER'S SOLUTION 1,000 ML 75 ML IV (14:53)
== END 2023-11-07 16:00 | disposition home or self-care (01) ==
PROVIDERS: PCP Family Medicine; Visit Provider Obstetrics & Gynecology
PROC: (CPT 840; principal; 2023-11-07 12:00)
PROC: (CPT 840; 2023-11-07 12:00)
DX: Z30.2 Encounter for sterilization (principal); N92.1 Excessive and frequent menstruation with irregular cycle; R10.2 Pelvic and perineal pain; N93.9 Abnormal uterine and vaginal bleeding, unspecified; N83.8 Other noninflammatory disorders of ovary, fallopian tube and broad ligament
CPT/HCPCS: 58563; 58661; 36415; 84702; 85025; 88302; 99999; J1094; J2704

== ENCOUNTER 2024-01-05 20:29 | Outpatient (REF) | payer MEDICAID, SELFPAY ==
--- OUTSIDE RECORDS SUMMARY | 2024-01-05 20:34 | XMS_ITS | CCD ---
Author Organization [facility] Care Team Providers Care Systems Software Engineer Name Role Phone TIM ., DR AVENDANO [...] DR AVENDANO Attending Unavailable Linda Ness Unavailable Jonny Briones Attending Provider Jonny Briones Admitting Unavailable Jonny Briones Attending Unavailable Jonny Briones Attending Unavailable Jonny Briones Admitting Unavailable JONNY BRIONES Attending Unavailable JONNY BRIONES Attending Unavailable MONICO TEMPLETON Attending Unavailable MONICO TEMPLETON Attending Unavailable Medications Current Medications Medication Drug Class(es) Dates Sig (Normalized) Sig (Original) methylPREDNISolone 4 mg oral tablet (2 sources) Corticosteroid Start: 01-21-2021 Medrol 4 MG as directed Orally As Directed for 6 days Apr, Active Completed/Discontinued Medications Medication Drug Class(es) Dates Sig (Normalized) Sig (Original) Frontier-Linyah (1 source) Frontier-Linyah Not-Taking Sertraline (1 source) Serotonin Reuptake Inhibitor Sertraline HCl Not-Taking Triamcinolone (1 source) Corticosteroid Start: 01-21-2021 KENALOG - 10 mg 26 May, 2021 40 mg Problems Active Problems Problem Classification [...] Test Name Value Interpretation Reference Range Facility [facility] 11-07-2023 L Specimen: [id number] Received: 11/08/23 Status: FRANKIE Wright Num: [id number] Spec Type: Surgical Subm Dr: Jonny Briones Tissues: A Fallopian Tube - Sterilization (BILATERAL FT) Procedures: HE/2, Gross/Micro L2 Age/ Patient Sex Location Account Attending Physician Roxie Duran 28/F LABE[facility] [id number] Jonny Briones SPEC NUM: [id number] RECD: 11/08/23 STATUS: FRANKIE WRIGHT NUM: [id number] STEPHIE: 11/07/[address]: Jonny Briones ENTERED: 11/08/[address]: Andrew,Lab SPEC TYPE: Surgical DEPT: ANA CRISTINA HESTER ORDERED: HE/2, Gross/Micro L2 ORDERED: HE/2, Gross/Micro L2 Pathological Diagnosis Bilateral fallopian tubes, bilateral salpingectomy: -Fimbriated bilateral fallopian tubes without significant histopathological changes except 2 large benign paratubal cysts in the secondarily designated tube without atypia Clinical Information Menorrhagia, AUB, pelvic pain, request for sterilization Gross Description Received in formalin labeled with the patient's name, date of and bilateral fallopian tubes are two purple-pink fimbriated fallopian tubes measuring 4.0 x 1.2 x 0.6 cm (inked black) and 5.0 x 0.7 x 0.5 cm (inked blue). The second fallopian tube has attached paratubal cysts measuring up to 1.0 cm. The cut surface of each tube reveals a patent lumen. Bench Tool Maker sections are submitted in two cassettes labeled A1-A2. CPT Codes 46604 ---- ---- Specimen: [id number] Received: 11/08/23 Status: FRANKIE Wright Num: [id number] Spec Type: Surgical Subm Dr: Jonny Briones Tissues: A Fallopian Tube - Sterilization (BILATERAL FT) Procedures: HE/Bernadette, Rodolfo/Sonia L2 ---- Patient: Roxie Duran [id number] (Continued) ---- Signed (signature on file) Abdirashid Lentz MD 11/09/23 1705 [facility] 10-18-2023 L Specimen: [id number] Received: 10/19/23 Status: FRANKIE Wright Num: [id number] Spec Type: Surgical Subm Dr: Jonny Briones Tissues: A Endometrium - Biopsy (ENDO EMBX) Procedures: HE/2, Gross/Micro L4 Age/ Patient Sex Location Account Attending Physician Roxie Duran 28/F [facility] [id number] Jonny Briones SPEC NUM: [id number] RECD: 10/19/23 STATUS: FRANKIE WRIGHT NUM: [id number] STEPHIE: 10/18/23- DR: Jonny Briones ENTERED: 10/19/[address]: [...] in one cassette labeled A1. CPT Codes 54849 ---- ---- Specimen: [id number] Received: 10/19/23-0 Status: FRANKIE Wright Num: [id number] Spec Type: Surgical Subm Dr: Jonny Briones Tissues: A Endometrium - Biopsy (ENDO EMBX) Procedures: RENUKA/Bernadette, Gross/Micro L4 ---- Patient: Roxie Duran [id number] (Continued) ---- Signed (signature on file) Bin Sanchez MD 10/23/232202 [facility] HELICOBACTER PYLORI AB IGGon 10-13-2022 H. PYLORI IGG ABS 0.21 Index Value Normal 0.00-0.79 [facility] Comment on above: Result Comment: Nega tive <0.80 Equivocal 0.80 - 0.89 Positive >0.89 Performed By: #### H PYLORG #### [facility] [address] [address] Dr. Ning Lentz INSULINon 10-13-2022 Insulin 13.0 uIU/mL Normal 2.6-24.9 [facility] Comment on above: Performed By: #### I NSULIN #### [facility] [address] [address] Dr. Ning Lentz CBC AUTO DIFFon 10-12-2022 BASO # 0.0 103/ul Normal 0.0-0.1 [facility] Comment on above: Performed By: #### C BC #### [facility] [address] [address] Dr. Ning Lentz Basophils/100 WBC (Bld) 0.4 % Normal 0.2-2.0 [facility] Comment on above: Performed By: #### C BC #### [facility] [address] [place] [address] Dr. Ning Lentz EO # 0.1 103/ul Normal 0.0-0.7 [facility] Comment on above: Performed By: #### C BC #### [facility] [address] [address] Dr. Ning Lentz Eosinophils/100 WBC (Bld) 1.8 % Normal 0.9-7.0 [facility] Comment on above: Performed By: #### C BC #### [facility] [address] [address] Dr. Ning Lentz Erythrocyte distribution width (RBC) [Ratio] 12.0 % Normal 11.0-15.0 [facility] Comment on above: Performed By: #### C BC #### [facility] [address] [address] Dr. Ning Lentz Hematocrit (Bld) [Volume fraction] 37.8 % Normal 36.0-48.0 [facility] Comment on above: Performed By: #### C BC #### [facility] [address] [place] [address] Dr. Ning Lentz Hemoglobin (Bld) [Mass/Vol] 13.0 g/dL Normal 12.0-16.0 [facility] Comment on above: Performed By: #### C BC #### [facility] [address] [place] [address] Dr. Ning Lentz IG # 0.01 10e3/ul Normal 0.00-0.03 [facility] Comment on above: Performed By: #### C BC #### [facility] [address] [place] [address] Dr. Ning Lentz IG % 0.2 % Normal 0.0-0.5 [facility] Comment on above: Performed By: #### C BC #### [facility] [address] [place] [address] Dr. Ning Lentz LYMPH # 1.7 103/ul Normal 1.2-3.8 [facility] Comment on above: Performed By: #### C BC #### [facility] [address] [place] [address] Dr. Ning Lentz Lymphocytes/100 WBC (Bld) 33.9 % Normal 20.5-60.0 [facility] Comment on above: Performed By: #### C BC #### [facility] [address] [place] [address] Dr. Ning Lentz MANUAL DIFF REQ NO Normal [facility] Comment on above: Performed By: #### C BC #### [facility] [address] [place] [address] Dr. Ning Lentz MCH (RBC) [Entitic mass] 30.3 pg Normal 26.7-34.0 [facility] Comment on above: Performed By: #### C BC #### [facility] [address] [place] [address] Dr. Ning Lentz MCHC (RBC) [Mass/Vol] 34.4 g/dL Normal 29.9-35.2 [facility] Comment on above: Performed By: #### C BC #### [facility] [address] [place] [address] Dr. Ning Lentz MCV (RBC) [Entitic vol] 88.1 fL Normal 81.0-99.0 [facility] Comment on above: Performed By: #### C BC #### [facility] [address] [place] [address] Dr. Ning Lentz MONO # 0.4 103/ul Normal 0.3-0.8 [facility] Comment on above: Performed By: #### C BC #### [facility] [address] [place] [address] Dr. Ning Lentz Monocytes/100 WBC (Bld) 8.9 % Normal 1.7-12.0 [facility] Comment on above: Performed By: #### C BC #### [facility] [address] [place] [address] Dr. Ning Lentz NEUT # 2.7 103/ul Normal 1.4-6.5 [facility] Comment on above: Performed By: #### C BC #### [facility] [address] [place] [address] Dr. Ning Lentz Neutrophils/100 WBC (Bld) 54.8 % Normal 43.0-75.0 [facility] Comment on above: Performed By: #### C BC #### [facility] [address] [place] [address] Dr. Ning Lentz Platelet mean volume (Bld) [Entitic vol] 10.2 fL Normal 9.5-13.5 [facility] Comment on above: Performed By: #### C BC #### [facility] [address] [place] [address] Dr. Ning Lentz PLT 215 103/ul Normal 150-450 [facility] Comment on above: Performed By: #### C BC #### [facility] [address] [place] [address] Dr. Ning Lentz RBC 4.29 106/ul Normal 4.20-5.40 [facility] Comment on above: Performed By: #### C BC #### [facility] [address] [place] [address] Dr. Ning Lentz WBC 4.9 103/ul Normal 4.0-11.0 [facility] Comment on above: Performed By: #### C BC #### [facility] [address] [place] [address] Dr. Ning Lentz FREE THYROXINE INDEX T7on FTI 2.37 Normal 1.30-4.50 [facility] Comment on above: Performed By: #### T 7, CMP, TSH, LIPID #### [facility] [address] [place] [address] Dr. Ning Lentz T3U 30.0 % Normal 30.0-39.0 [facility] Comment on above: Performed By: #### T 7, CMP, TSH, LIPID #### [facility] [address] [address] [address] Ning Lentz T4 [Mass/Vol] 7.90 ug/dL Normal 4.80-13.90 [facility] Comment on above: Performed By: #### T 7, CMP, TSH, LIPID #### [facility] [address] [address] [address] Ning Lentz GLYCOHEMOGLOBIN A1Con 2022 ADA RECOMMENDATION SEE BELOW Normal [facility] Comment on above: Result Comment: ADA RECOMMENDED LIMIT 4.0 - 6.0 ADA THERAPEUTIC TARGET < 7.0 ACTION SUGGESTED > 7.0 Performed By: #### A 1C #### [facility] [address] [address] [address] Ning Lentz Glucose [Mass/Vol] 88 mg/dL Normal [facility] Comment on above: Performed By: #### A 1C #### [facility] [address] [address] [address] Ning Lentz HbA1c (Bld) [Mass fraction] 4.7 % Normal 4.5-6.2 [facility] Comment on above: Performed By: #### A 1C #### [facility] [address] [address] [address] Ning Lentz IRONon 10-12-2022 Iron [Mass/Vol] 131.0 ug/dL Normal 50.0-170.0 [facility] Comment on above: Performed By: #### I INDU #### [facility] [address] [address] [address] Ning Lentz LIPID PROFILEon 10-12-2022 CHOL-HDL RATIO NORM SEE BELOW Normal [facility] Comment on above: Result Comment: 3.3 - 4.4 LOW RISK 4.4 - 7.1 AVERAGE RISK 7.1 - 11.0 MODERATE RISK >11.0 HIGH RISK Performed By: #### T 7, CMP, TSH, LIPID #### [facility] [address] [address] [address] Ning Lentz Cholesterol [Mass/Vol] 169 mg/dL Normal <=200 [facility] Comment on above: Performed By: #### T 7, CMP, TSH, LIPID #### [facility] [address] [address] [address] Ning Lentz Cholesterol in HDL [Mass/Vol] 52 mg/dL Normal 40-60 [facility] Comment on above: Performed By: #### T 7, CMP, TSH, LIPID #### [facility] [address] [address] [address] Ning Lentz Cholesterol in LDL [Mass/Vol] 84.6 mg/dL Normal [facility] Comment on above: Performed By: #### T 7, CMP, TSH, LIPID #### [facility] [address] [address] [address] Ning Lentz Cholesterol.total/Ch olesterol in HDL [Mass ratio] 3.3 {ratio} Normal [facility] Comment on above: Performed By: #### T 7, CMP, TSH, LIPID #### [facility] [address] [address] [address] Ning Lentz HDL NORMAL > or = 60 mg/dl - LO W CARDIOVASCULAR RISK <40 mg/dl - HIGH CARDIOVASCULAR RISK Normal [facility] Comment on above: Performed By: #### T 7, CMP, TSH, LIPID #### [facility] [address] [address] [address] Ning Lentz LDL CALC NORMAL SEE BELOW Normal [facility] Comment on above: Result Comment: <100 mg/dl OPTIMAL 100 - 129 mg/dl NEAR OR ABOVE OPTIMAL 130 - 159 mg/dl BORDERLINE HIGH 160 - 189 mg/dl HIGH >190 mg/dl VERY HIGH Performed By: #### T 7, CMP, TSH, LIPID #### [facility] [address] [address] [address] Ning Lentz Triglyceride [Mass/Vol] 162 mg/dL Critically high <=150 [facility] Comment on above: Performed By: #### T 7, CMP, TSH, LIPID #### [facility] [address] [address] [address] Ning Lentz VLDL CALC 32.4 mg/dL Normal [facility] Comment on above: Performed By: #### T 7, CMP, TSH, LIPID #### [facility] [address] [address] [address] Ning Lentz PROF 14(COMP METB)on 023 Albumin [Mass/Vol] 3.9 g/dL Normal 3.4-5.0 [facility] Comment on above: Performed By: #### T 7, CMP, TSH, LIPID #### [facility] [address] [place] [address] Dr. Ning Lentz Albumin/Globulin [Mass ratio] 1.0 {ratio} Normal [facility] Comment on above: Performed By: #### T 7, CMP, TSH, LIPID #### [facility] [address] [place] [address] Dr. Ning Lentz ALP [Catalytic activity/Vol] 70 U/L Normal 46-116 [facility] Comment on above: Performed By: #### T 7, CMP, TSH, LIPID #### [facility] [address] [place] [address] Dr. Ning Lentz ALT [Catalytic activity/Vol] 34 U/L Normal 14-59 [facility] Comment on above: Performed By: #### T 7, CMP, TSH, LIPID #### [facility] [address] [place] [address] Dr. Ning Lentz Anion gap [Moles/Vol] 12.5 mmol/L Normal [facility] Comment on above: Performed By: #### T 7, CMP, TSH, LIPID #### [facility] [address] [place] [address] Dr. Ning Lentz AST [Catalytic activity/Vol] 22 U/L Normal 15-37 [facility] Comment on above: Performed By: #### T 7, CMP, TSH, LIPID #### [facility] [address] [place] [address] Dr. Ning Lentz Bilirubin [Mass/Vol] 0.3 mg/dL Normal 0.2-1.0 [facility] Comment on above: Performed By: #### T 7, CMP, TSH, LIPID #### [facility] [address] [address] [address] Ning Lentz Calcium [Mass/Vol] 9.4 mg/dL Normal 8.5-10.1 [facility] Comment on above: Performed By: #### T 7, CMP, TSH, LIPID #### [facility] [address] [address] [address] Ning Lentz Chloride [Moles/Vol] 104 mmol/L Normal 98-107 [facility] Comment on above: Performed By: #### T 7, CMP, TSH, LIPID #### [facility] [address] [address] [address] Ning Lentz CO2 [Moles/Vol] 29.3 mmol/L Normal 21.0-32.[address] [facility] Comment on above: Performed By: #### T 7, CMP, TSH, LIPID #### [facility] [address] [place] [address] Dr. Ning Lentz Creatinine [Mass/Vol] 0.77 mg/dL Normal 0.55-1.02 [facility] Comment on above: Performed By: #### T 7, CMP, TSH, LIPID #### [facility] [address] [address] [address] Ning Lentz EGFR-AF CONGOLESE >60 Normal >=[address] [facility] Comment on above: Performed By: #### T 7, CMP, TSH, LIPID #### [facility] [address] [place] [address] Dr. Ning Lentz EGFR-NON AF CONGOLESE >60 Normal >=60 [facility] Comment on above: Performed By: #### T 7, CMP, TSH, LIPID #### [facility] [address] [address] [address] Ning Lentz Globulin (S) [Mass/Vol] 3.8 g/dL Normal [facility] Comment on above: Performed By: #### T 7, CMP, TSH, LIPID #### [facility] [address] [place] [address] Dr. Ning Lentz Glucose [Mass/Vol] 97 mg/dL Normal 74-106 [facility] Comment on above: Performed By: #### T 7, CMP, TSH, LIPID #### [facility] [address] [address] [address] Ning Lentz Potassium [Moles/Vol] 3.8 mmol/L Normal 3.5-5.1 [facility] Comment on above: Performed By: #### T 7, CMP, TSH, LIPID #### [facility] [address] [place] [address] Dr. Ning Lentz Protein [Mass/Vol] 7.7 g/dL Normal 6.4-8.2 [facility] Comment on above: Performed By: #### T 7, CMP, TSH, LIPID #### [facility] [address] [place] [address] Dr. Ning Lentz Sodium [Moles/Vol] 142 mmol/L Normal 136-145 [facility] Comment on above: Performed By: #### T 7, CMP, TSH, LIPID #### [facility] [address] [place] [address] Dr. Ning Lentz Urea nitrogen [Mass/Vol] 8.0 mg/dL Normal 7.0-18.0 [facility] Comment on above: Performed By: #### T 7, CMP, TSH, LIPID #### [facility] [address] [place] [address] Dr. Ning Lentz Urea nitrogen/Creatinine [Mass ratio] 10.4 mg/mg Normal [facility] Comment on above: Performed By: #### T 7, CMP, TSH, LIPID #### [facility] [address] [place] [address] Dr. Ning Lentz TSHon 10-12-2022 TSH 4.458 uIU/mL Critically high 0.358-3.740 [facility] Comment on above: Performed By: #### T 7, CMP, TSH, LIPID #### [facility] [address] [place] [address] Dr. Ning Lentz HERPES SIMPLEX VIRUS (HSV) C ULTUREon 01-03-2022 HSV Culture/Type Comment Abnormal 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 Typing was confirmed by monoclonal antibody microscopic immunofluorescence. Performed By: #### H SVCUL #### [facility] [address] [place] [address] Dr. Ning Lentz Vital Signs Date Time Vital Sign Value Performing Clinician Facility 05-04-2023 15:30-0400 Body height 158.75 cm Linda Ness Other [facility] Other 05-04-2023 15:30-0400 Body mass index (BMI) [Ratio] 23.68 kg/m2 Linda Ness Other [facility] Other 05-04-2023 15:30-0400 Body temperature 99 [degF] Linda Ness Other [facility] Other 05-04-2023 15:30-0400 Body weight 59.69 kg Linda Ness Other [facility] Other 05-04-2023 15:30-0400 Diastolic blood pressure 60 mm[Hg] Linda Ness Other [facility] Other 05-04-2023 15:30-0400 Respiratory rate 18 /min Linda Ness Other [facility] Other 05-04-2023 15:30-0400 SaO2% (BldA) [Mass fraction] 98 % Linda Ness Other [facility] Other 05-04-2023 15:30-0400 Systolic blood pressure 122 mm[Hg] Linda Ness Other [facility] Other Encounters Encounter Date Encounter Type Care Provider Facility Start: 12-01-2023 End: 12-01-2023 ambulatory MONICO TEMPLETON Not Available Start: 11-21-2023 End: 11-21-2023 ambulatory MONICO TEMPLETON Not Available Start: 11-07-2023 End: 11-07-2023 ambulatory Jonny Anali Facility:[facility] Start: 10-18-2023 End: 10-18-2023 ambulatory Jonny Anali Facility:[facility] Start: 10-18-2023 End: 10-18-2023 ambulatory JONNYChel MENESESO [facility] Work Phone: Start: 10-18-2023 End: 10-18-2023 Departed Referred Jonny Briones Work Phone: [facility] Start: 09-21-2023 End: 09-21-2023 ambulatory JONNY MENESESO Not Available Start: 05-04-2023 End: 05-04-2023 ambulatory Linda Ness Other [facility] Other Start: 05-04-2023 Office outpatient vi sit 15 minutes Linda Ness [facility] Start: 12-15-2022 End: 12-15-[address] ROMANA DUMONT . Facility:[facility] Start: 10-28-[address] ROMANA DUMONT . Facili ty:[facility] Start: 10-15-2022 Encounter for genera l adult medical examination without abnormal findings DR ROMANA DUMONT . [facility] Start: 10-12-2022 End: 10-13-[address] ROMANA DUMONT . Facility:[facility] Start: 10-12-2022 End: 10-13-2022 Encounter for general adult medical examination without abnormal findings DR ROMANA DUMONT . Facility:[facility] Start: 12-30-2021 End: 12-30-[address] JOEL SILVER . Facility:[facility] Payers Date Payer Category Payer Self-pay 1995 Unknown [id number] 2.16.84 [id number] 1993 Unknown [id number] 2.16.84 [id number] 1993 Unknown [id number] 2.16.84 [id number] 1993 Unknown [id number] 2.16.84 [id number] 1993 Unknown [id number] 2.16.84 [id number] 1993 Unknown [id number] 2.16.84 [id number] 1993 Unknown [id number] 2.16.84 [id number] 1993 Unknown [id number] 2.16.84 [id number] 1961 Medicaid [id number] 1961 Self-pay [id number] 1961 Unknown [id number] Unknown [id number] Social History Date Type Detail Facility Unknown if ever smoked [facility] Other Sex Assigned At Sex Assigned At Bir th [facility] Other Start: 1995 Sex Assigned At Female F [facility] Evaluation note 05-04-2023 Note Date & [...] no improvement in 2 to 3 days [facility] Other Evaluation note Note Date & Type Note Facility Evaluation note No assessment information availa [facility] Work Phone: History general Narrative - Reported Note Date & Type Note Facility History general Narrative - Reported Type Medical History chronic depression Medical History anxiety Surgical History appendectomy Surgical History LEEP Surgical History PE tubes Hospitalization History See Above [facility] Other Summary Purpose Family History No Family History Records FoundNo Family History Records FoundNo Family History Records Found Advance Directives No Advanced Directives Records FoundNo Advanced Directives Records FoundNo Advanced Directives Records Found Additional Source Comments INFORMATION SOURCE (unrecogn ized section and content) DATE CREATED AUTHOR 12/19/2022 [facility] DATE CREATED AUTHOR AUTHOR'S ORGANIZ ATION 11/09/2023 [facility] DATE CREATED AUTHOR AUTHOR'S ORGANIZ ATION 12/28/2023 [facility] EPIC REASON FOR VISIT (unrecogniz ed section and [...] BE BASED ON THE PRIMARY CLINICAL RECORDS. [facility]. provides no warranty or guarantee of the accuracy or completeness of information in this document.
[2024-01-11 11:10] LABS: Age Gdln ACOG Testing Note (.); HPV Aptima Negative (Negative); IGP, Aptima HPV, rfx 16/18,45 Note (.)
== END 2024-01-05 20:30 | disposition home or self-care (01) ==
LOC: LAB 20:29
PROVIDERS: PCP Family Medicine; Visit Provider Physician Assistant
DX: Z01.419 Encounter for gynecological examination (general) (routine) without abnormal findings (principal)
CPT/HCPCS: 87624; G0145

== ENCOUNTER 2024-02-02 18:17 | Emergency (ER) | payer MEDICAID, SELFPAY ==
[2024-02-02] VITALS (12 sets, daily range): BP systolic 91–118; BP diastolic 51–74; PULSE 48–77; TEMP 36.8; O2SAT 100; BMI 22.7
--- NOTE | 2024-02-02 18:28 | CT_ITS ---
The [address] [address] Patient Name: ROXIE STEEN MRN: [id number] date: 1995 Sex: F Assigned Patient Location: ER Current Patient Location: ER Accession/Order Number: [id number] Exam Date: 02/02/2024 19:16 Report Date: 02/02/2024 19:47 At the request of: MIRIAM CABALLERO Procedure: CT head/brain wo con EXAM: CT head/brain wo con HISTORY: Dizziness COMPARISON: None. TECHNIQUE: Axial CT scans through the head were obtained without IV contrast administration. Dose reduction techniques were achieved by using: automated exposure control and/or adjustment of mA and /or kV according to patient size and/or use of iterative reconstruction technique. FINDINGS: There is no acute intracranial hemorrhage or abnormal extra-axial fluid collection. No mass effect or midline shift is seen. There is no evidence of large acute territorial infarction. There is no hydrocephalus. To the limit of CT, the posterior fossa appears unremarkable. The calvaria and extra cranial soft tissues are unremarkable. The visualized orbits show no abnormality. The visualized paranasal sinuses show no air-fluid level. Mastoid air cells are clear. CT/CT head/brain wo con IMPRESSION: No acute intracranial process. Electronically authenticated by: SARAH NGUYEN Date: 02/02/2024 19:47
--- NOTE | 2024-02-02 18:28 | ECG_ITS ---
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
--- OUTSIDE RECORDS SUMMARY | 2024-02-02 18:28 | XMS_ITS | CCD ---
Author Organization [facility] Care Team Providers Care Business Rules Analyst Name Role Phone TIM ., DR AVENDANO Admitting Unavailable HOY ., DR AVENDANO Primary Care Unavailable HOY ., DR AVENDANO Consulting Unavailable HOY ., DR AVENDANO Attending Unavailable KARASIK ., DR MALDONADO Attending Unavailabl e KARASIK ., DR MALDONADO Admitting Unavailabl e KARASIK ., DR MALDONADO Consulting Unavailabl e HOY ., DR AVENDANO Primary Care Unavailable HOY ., DR AVENDANO Primary Care Unavailable YOU ., DR FULLER Admitting Unavailable YOU ., DR FULLER Consulting Unavailable YOU ., DR FULLER Attending Unavailable HOY ., DR AVENDANO Admitting Unavailable HOY ., DR AVENDANO Primary Care Unavailable HOY ., DR AVENDANO Attending Unavailable Linda Ness Unavailable Jonny Briones Attending Provider Jonny Briones Admitting Unavailable Jonny Broines Attending Unavailable Jonny Briones Attending Unavailable Jonny Briones Admitting Unavailable JONNY BRIONES Attending Unavailable JONNY BRIONES Attending Unavailable MONICO TEMPLETON Attending Unavailable MONICO TEMPLETON Attending Unavailable MONICO TEMPLETON Attending Unavailable Medications Current Medications Medication Drug Class(es) Dates Sig (Normalized) Sig (Original) methylPREDNISolone 4 mg oral tablet (2 sources) Corticosteroid Start: 01-21-2021 Medrol 4 MG as directed Orally As Directed for 6 days Apr, Active Completed/Discontinued Medications Medication Drug Class(es) Dates Sig (Normalized) Sig (Original) Gordon-Linyah (1 source) Gordon-Linyah Not-Taking Sertraline (1 source) Serotonin Reuptake Inhibitor [...] Test Name Value Interpretation Reference Range Facility [facility] 11-07-2023 L Specimen: [id number] Received: 11/08/23 Status: FRANKIE Wright Num: [id number] Spec Type: Surgical Subm Dr: Jonny Briones Tissues: A Fallopian Tube - Sterilization (BILATERAL FT) Procedures: HE/2, Gross/Micro L2 Age/ Patient Sex Location Account Attending Physician Roxie Duran 28/F [facility] [id number] Jonny Briones SPEC NUM: [id number] RECD: 11/08/23 STATUS: FRANKIE WRIGHT NUM: [id number] STEPHIE: 11/07/[address]: Jonny Briones ENTERED: [...] of each tube reveals a patent lumen. Process Safety Specialist sections are submitted in two cassettes labeled A1-A2. CPT Codes 71186 ---- ---- Specimen: [id number] Received: 11/08/23 Status: FRANKIE Wright Num: [id number] Spec Type: Surgical Subm Dr: Jonny Briones Tissues: A Fallopian Tube - Sterilization (BILATERAL FT) Procedures: HE/Rodolfo Fleming/Sonia L2 ---- Patient: Roxie Duran [id number] (Continued) ---- Signed (signature on file) Abdirashid Lentz MD 11/09/[address] [facility] [place] 10-18-2023 L Specimen: [id number] Received: 10/19/23 Status: FRANKIE Wright Num: [id number] Spec Type: Surgical Subm Dr: Jonny Briones Tissues: A Endometrium - Biopsy (ENDO EMBX) Procedures: HE/2, Gross/Micro L4 Age/ Patient Sex Location Account Attending Physician Roxie Duran 28/F [facility] [id number] Jonny Briones SPEC NUM: [id number] RECD: 10/19/23 STATUS: FRANKIE WRIGHT NUM: [id number] STEPHIE: 10/18/23- SUBM DR: Jonny Briones ENTERED: 10/19/23 [facility] DR: Andrew,Lab SPEC TYPE: Surgical DEPT: ANA [...] in one cassette labeled A1. CPT Codes 88561 ---- ---- Specimen: [id number] Received: 10/19/23-0 Status: FRANKIE Wright Num: [id number] Spec Type: Surgical Subm Dr: Jonny Briones Tissues: A Endometrium - Biopsy (ENDO EMBX) Procedures: RENUKA/Bernadette, Rodolfo/Sonia L4 ---- Patient: Roxie Duran [id number] (Continued) ---- Signed (signature on file) Bin Sanchez MD 10/23/232202 [facility] HELICOBACTER PYLORI AB IGGon 10-13-2022 H. PYLORI IGG ABS 0.21 Index Value Normal 0.00-0.79 [facility] Comment on above: Result Comment: Nega tive <0.80 Equivocal 0.80 - 0.89 Positive >0.89 Performed By: #### H PYLORG #### [facility] [address] [address] [address] Ning Lentz INSULINon 10-13-2022 Insulin 13.0 uIU/mL Normal 2.6-24.9 [facility] Comment on above: Performed By: #### I NSULIN #### [facility] [address] [address] [address] Ning Lentz CBC AUTO DIFFon 10-12-2022 BASO # 0.0 103/ul Normal 0.0-0.1 [facility] Comment on above: Performed By: #### C BC #### [facility] [address] [place] [address] Dr. Ning Lentz Basophils/100 WBC (Bld) 0.4 % Normal 0.2-2.[address] [facility] Comment on above: Performed By: #### C BC #### [facility] [address] [place] [address] Dr. Ning Lentz EO # 0.1 103/ul Normal 0.0-0.[address] [facility] Comment on above: Performed By: #### C BC #### [facility] [address] [place] [address] Dr. Ning Lentz Eosinophils/100 WBC (Bld) 1.8 % Normal 0.9-7.[address] [facility] Comment on above: Performed By: #### C BC #### [facility] [address] [place] [address] Dr. Ning Lentz Erythrocyte distribution width (RBC) [Ratio] 12.0 % Normal 11.0-15.0 [facility] Comment on above: Performed By: #### C BC #### [facility] [address] [place] [address] Dr. Ning Lentz Hematocrit (Bld) [Volume fraction] 37.8 % Normal 36.0-48.0 [facility] Comment on above: Performed By: #### C BC #### [facility] [address] [place] [address] Dr. Ning Lentz Hemoglobin (Bld) [Mass/Vol] 13.0 g/dL Normal 12.0-16.[address] [facility] Comment on above: Performed By: #### C BC #### [facility] [address] [place] [address] Dr. Ning Lentz IG # 0.01 10e3/ul Normal 0.00-0.[address] [facility] Comment on above: Performed By: #### C BC #### [facility] [address] [place] [address] Dr. Ning Lentz IG % 0.2 % Normal 0.0-0.5 [facility] Comment on above: Performed By: #### C BC #### [facility] [address] [place] [address] Dr. Ning Lentz LYMPH # 1.7 103/ul Normal 1.2-3.[address] [facility] Comment on above: Performed By: #### C BC #### [facility] [address] [place] [address] Dr. Ning Lentz Lymphocytes/100 WBC (Bld) 33.9 % Normal 20.5-60.0 [facility] Comment on above: Performed By: #### C BC #### [facility] [address] [place] [address] Dr. Ning Lentz MANUAL DIFF REQ NO Normal [facility] Comment on above: Performed By: #### C BC #### [facility] [address] [place] [address] Dr. Ning Lentz MCH (RBC) [Entitic mass] 30.3 pg Normal 26.7-34.0 [facility] Comment on above: Performed By: #### C BC #### [facility] [address] [place] [address] Dr. Ning Lentz MCHC (RBC) [Mass/Vol] 34.4 g/dL Normal 29.9-35.[address] [facility] Comment on above: Performed By: #### C BC #### [facility] [address] [place] [address] Dr. Ning Lentz MCV (RBC) [Entitic vol] 88.1 fL Normal 81.0-99.[address] [facility] Comment on above: Performed By: #### C BC #### [facility] [address] [place] [address] Dr. Ning Lentz MONO # 0.4 103/ul Normal 0.3-0.[address] [facility] Comment on above: Performed By: #### C BC #### [facility] [address] [place] [address] Dr. Ning Lentz Monocytes/100 WBC (Bld) 8.9 % Normal 1.7-12.0 [facility] Comment on above: Performed By: #### C BC #### [facility] [address] [place] [address] Dr. Ning Lentz NEUT # 2.7 103/ul Normal 1.4-6.5 [facility] Comment on above: Performed By: #### C BC #### [facility] [address] [place] [address] Dr. Ning Lentz Neutrophils/100 WBC (Bld) 54.8 % Normal 43.0-75.0 [facility] Comment on above: Performed By: #### C BC #### [facility] [address] [place] [address] Dr. Ning Lentz Platelet mean volume (Bld) [Entitic vol] 10.2 fL Normal 9.5-13.5 [facility] Comment on above: Performed By: #### C BC #### [facility] [address] [place] [address] Dr. Ning Lentz PLT 215 103/ul Normal 150-[address] [facility] Comment on above: Performed By: #### C BC #### [facility] [address] [place] [address] Dr. Ning Lentz RBC 4.29 106/ul Normal 4.20-5.40 [facility] Comment on above: Performed By: #### C BC #### [facility] [address] [place] [address] Dr. Ning Lentz WBC 4.9 103/ul Normal 4.0-11.0 [facility] Comment on above: Performed By: #### C BC #### [facility] [address] [place] [address] Dr. Ning Lentz FREE THYROXINE INDEX T7on FTI 2.37 Normal 1.30-4.50 [facility] Comment on above: Performed By: #### T 7, CMP, TSH, LIPID #### [facility] [address] [place] [address] Dr. Ning Lentz T3U 30.0 % Normal 30.0-39.0 [facility] Comment on above: Performed By: #### T 7, CMP, TSH, LIPID #### [facility] [address] [address] [address] Ning Lentz T4 [Mass/Vol] 7.90 ug/dL Normal 4.80-13.90 [facility] Comment on above: Performed By: #### T 7, CMP, TSH, LIPID #### [facility] [address] [address] [address] Ning Lentz GLYCOHEMOGLOBIN A1Con 2022 ADA RECOMMENDATION SEE BELOW Normal [facility] Comment on above: Result Comment: ADA RECOMMENDED LIMIT 4.0 - 6.0 ADA THERAPEUTIC TARGET < 7.0 ACTION SUGGESTED > 7.0 Performed By: #### A 1C #### [facility] [address] [place] [address] Dr. Ning Lentz Glucose [Mass/Vol] 88 mg/dL Normal [facility] Comment on above: Performed By: #### A 1C #### [facility] [address] [place] [address] Dr. Ning Lentz HbA1c (Bld) [Mass fraction] 4.7 % Normal 4.5-6.2 [facility] Comment on above: Performed By: #### A 1C #### [facility] [address] [place] [address] Dr. Ning Lentz IRONon 10-12-2022 Iron [Mass/Vol] 131.0 ug/dL Normal 50.0-170.0 [facility] Comment on above: Performed By: #### I INDU #### [facility] [address] [place] [address] Dr. Ning Lentz LIPID PROFILEon 10-12-2022 CHOL-HDL RATIO NORM SEE BELOW Normal [facility] Comment on above: Result Comment: 3.3 - 4.4 LOW RISK 4.4 - 7.1 AVERAGE RISK 7.1 - 11.0 MODERATE RISK >11.0 HIGH RISK Performed By: #### T 7, CMP, TSH, LIPID #### [facility] [address] [place] [address] Dr. Ning Lentz Cholesterol [Mass/Vol] 169 mg/dL Normal <=[address] [facility] Comment on above: Performed By: #### T 7, CMP, TSH, LIPID #### [facility] [address] [address] [address] Ning Lentz Cholesterol in HDL [Mass/Vol] 52 mg/dL Normal 40-60 [facility] Comment on above: Performed By: #### T 7, CMP, TSH, LIPID #### [facility] [address] [address] [address] Ning Lentz Cholesterol in LDL [Mass/Vol] 84.6 mg/dL Normal [facility] Comment on above: Performed By: #### T 7, CMP, TSH, LIPID #### [facility] [address] [place] [address] Dr. Ning Lentz Cholesterol.total/Ch olesterol in HDL [Mass ratio] 3.3 {ratio} Normal [facility] Comment on above: Performed By: #### T 7, CMP, TSH, LIPID #### [facility] [address] [address] [address] Ning Lentz HDL NORMAL > or = 60 mg/dl - LO W CARDIOVASCULAR RISK <40 mg/dl - HIGH CARDIOVASCULAR RISK Normal [facility] Comment on above: Performed By: #### T 7, CMP, TSH, LIPID #### [facility] [address] [place] [address] Dr. Ning Lentz LDL CALC NORMAL SEE BELOW Normal [facility] Comment on above: Result Comment: <100 mg/dl OPTIMAL 100 - 129 mg/dl NEAR OR ABOVE OPTIMAL 130 - 159 mg/dl BORDERLINE HIGH 160 - 189 mg/dl HIGH >190 mg/dl VERY HIGH Performed By: #### T 7, CMP, TSH, LIPID #### [facility] [address] [place] [address] Dr. Ning Lentz Triglyceride [Mass/Vol] 162 mg/dL Critically high <=[address] [facility] Comment on above: Performed By: #### T 7, CMP, TSH, LIPID #### [facility] [address] [address] [address] Ning Lentz VLDL CALC 32.4 mg/dL Normal [facility] Comment on above: Performed By: #### T 7, CMP, TSH, LIPID #### [facility] [address] [address] [address] Ning Lentz PROF 14(COMP METB)on 023 Albumin [Mass/Vol] 3.9 g/dL Normal 3.4-5.0 [facility] Comment on above: Performed By: #### T 7, CMP, TSH, LIPID #### [facility] [address] [place] [address] Dr. Ning Lentz Albumin/Globulin [Mass ratio] 1.0 {ratio} Normal [facility] Comment on above: Performed By: #### T 7, CMP, TSH, LIPID #### [facility] [address] [place] [address] Dr. Ning Lentz ALP [Catalytic activity/Vol] 70 U/L Normal 46-116 [facility] Comment on above: Performed By: #### T 7, CMP, TSH, LIPID #### [facility] [address] [place] [address] Dr. Ning Lentz ALT [Catalytic activity/Vol] 34 U/L Normal 14-59 [facility] Comment on above: Performed By: #### T 7, CMP, TSH, LIPID #### [facility] [address] [place] [address] Dr. Ning Lentz Anion gap [Moles/Vol] 12.5 mmol/L Normal [facility] Comment on above: Performed By: #### T 7, CMP, TSH, LIPID #### [facility] [address] [place] [address] Dr. Ning Lentz AST [Catalytic activity/Vol] 22 U/L Normal 15-37 [facility] Comment on above: Performed By: #### T 7, CMP, TSH, LIPID #### [facility] [address] [place] [address] Dr. Ning Lentz Bilirubin [Mass/Vol] 0.3 mg/dL Normal 0.2-1.0 [facility] Comment on above: Performed By: #### T 7, CMP, TSH, LIPID #### [facility] [address] [address] [address] Ning Lentz Calcium [Mass/Vol] 9.4 mg/dL Normal 8.5-10.1 [facility] Comment on above: Performed By: #### T 7, CMP, TSH, LIPID #### [facility] [address] [place] [address] Dr. Ning Lentz Chloride [Moles/Vol] 104 mmol/L Normal 98-[address] [facility] Comment on above: Performed By: #### T 7, CMP, TSH, LIPID #### [facility] [address] [place] [address] Dr. Ning Lentz CO2 [Moles/Vol] 29.3 mmol/L Normal 21.0-32.0 [facility] Comment on above: Performed By: #### T 7, CMP, TSH, LIPID #### [facility] [address] [place] [address] Dr. Ning Lentz Creatinine [Mass/Vol] 0.77 mg/dL Normal 0.55-1.02 [facility] Comment on above: Performed By: #### T 7, CMP, TSH, LIPID #### [facility] [address] [place] [address] Dr. Ning Lentz EGFR-AF ENGLISH >60 Normal >=60 [facility] Comment on above: Performed By: #### T 7, CMP, TSH, LIPID #### [facility] [address] [place] [address] Dr. Ning Lentz EGFR-NON AF ENGLISH >60 Normal >=60 [facility] Comment on above: Performed By: #### T 7, CMP, TSH, LIPID #### [facility] [address] [place] [address] Dr. Ning Lentz Globulin (S) [Mass/Vol] 3.8 g/dL Normal [facility] Comment on above: Performed By: #### T 7, CMP, TSH, LIPID #### [facility] [address] [place] [address] Dr. Ning Lentz Glucose [Mass/Vol] 97 mg/dL Normal 74-[address] [facility] Comment on above: Performed By: #### T 7, CMP, TSH, LIPID #### [facility] [address] [place] [address] Dr. Ning Lentz Potassium [Moles/Vol] 3.8 mmol/L Normal 3.5-5.[address] [facility] Comment on above: Performed By: #### T 7, CMP, TSH, LIPID #### [facility] [address] [place] [address] Dr. Ning Lentz Protein [Mass/Vol] 7.7 g/dL Normal 6.4-8.[address] [facility] Comment on above: Performed By: #### T 7, CMP, TSH, LIPID #### [facility] [address] [place] [address] Dr. Ning Lentz Sodium [Moles/Vol] 142 mmol/L Normal 136-[address] [facility] Comment on above: Performed By: #### T 7, CMP, TSH, LIPID #### [facility] [address] [place] [address] Dr. Ning Lentz Urea nitrogen [Mass/Vol] 8.0 mg/dL Normal 7.0-18.0 [facility] Comment on above: Performed By: #### T 7, CMP, TSH, LIPID #### [facility] [address] [place] [address] Dr. Ning Lentz Urea nitrogen/Creatinine [Mass ratio] 10.4 mg/mg Normal [facility] Comment on above: Performed By: #### T 7, CMP, TSH, LIPID #### [facility] [address] [place] [address] Dr. Ning Lentz TSHon 10-12-2022 TSH 4.458 uIU/mL Critically high 0.358-3.[address] [facility] Comment on above: Performed By: #### T 7, CMP, TSH, LIPID #### [facility] [address] [place] [address] Dr. 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 Typing was confirmed by monoclonal antibody microscopic immunofluorescence. Performed By: #### H SVCUL #### [facility] [address] [place] [address] Dr. Ning Lentz Vital Signs Date Time Vital Sign Value Performing Clinician Facility 05-04-2023 15:30-0400 Body height 158.75 cm Linda Ness Other [facility] Other 05-04-2023 15:30-0400 Body mass index (BMI) [Ratio] 23.68 kg/m2 Linda Ness Other [facility] Other 05-04-2023 15:30-0400 Body temperature 99 [degF] Linda Ness Other [facility] Other 05-04-2023 15:30-0400 Body weight 59.69 kg Linda Ness Other [facility] Other 05-04-2023 15:30-0400 Diastolic blood pressure 60 mm[Hg] Linda Ness Other [facility] Other 05-04-2023 15:30-0400 Respiratory rate 18 /min Linda Ness Other [facility] Other 05-04-2023 15:30-0400 SaO2% (BldA) [Mass fraction] 98 % Linda Ness Other [facility] Other 05-04-2023 15:30-0400 Systolic blood pressure 122 mm[Hg] Linda Ness Other [facility] Other Encounters Encounter Date Encounter Type Care Provider Facility Start: 01-05-2024 End: 01-05-2024 ambulatory MONICO TEMPLETON Not Available Start: 12-01-2023 End: 12-01-2023 ambulatory MONICO CURTISEY Not Available Start: 11-21-2023 End: 11-21-2023 ambulatory MONICO TEMPLETON Not Available Start: 11-07-2023 End: 11-07-2023 ambulatory Jonny Briones Facility:[facility] Start: 10-18-2023 End: 10-18-2023 ambulatory Jonny Briones Facility:[facility] Start: 10-18-2023 End: 10-18-2023 ambulatory JONNY MENESESO [facility] Work Phone: Start: 10-18-2023 End: 10-18-2023 Departed Referred Jonny Briones Work Phone: [facility] Start: 09-21-2023 End: 09-21-2023 ambulatory JONNY BRIONES Not Available Start: 05-04-2023 End: 05-04-2023 ambulatory Linda Ness Other [facility] Other Start: 05-04-2023 Office outpatient vi sit 15 minutes Linda Ness [facility] Start: 12-15-2022 End: 12-15-[address] ROMANA DUMONT . Facility:[facility] Start: 10-28-[address] ROMANA DUMONT . Facili ty:[facility] Start: 10-15-2022 Encounter for genera l adult medical examination without abnormal findings DR ROMANA DUMONT . [facility] Start: 10-12-2022 End: 10-13-[address] ROMANA DUMONT . Facility:[facility] Start: 10-12-2022 End: 10-13-2022 Encounter for general adult medical examination without abnormal findings DR ROMANA DUMONT . Facility:[facility] Start: 12-30-2021 End: 12-30-[address] JOEL SILVER . Facility:[facility] Payers Date Payer Category Payer Self-pay 1995 Unknown [id number] 2.16.84 [id number] 1993 Unknown [id number] 2.16.84 [id number] 1993 Unknown [id number] 2.16.84 [id number] 1993 Unknown [id number] 2.16.84 [id number] 1993 Unknown [id number] 2.16.84 [id number] 1993 Unknown [id number] 2.16.84 [id number] 1993 Unknown [id number] 2.16.84 [id number] 1993 Unknown [id number] 2.16.84 [id number] 1993 Unknown [id number] 2.16.84 [id number] 1961 Medicaid [id number] 1961 Self-pay [id number] 1961 Unknown [id number] Unknown [id number] Social History Date Type Detail Facility Unknown if ever smoked [facility] Other Sex Assigned At Sex Assigned At Bir th [facility] Other Start: 1995 Sex Assigned At Female [facility] Evaluation note 05-04-2023 Note Date & [...] no improvement in 2 to 3 days [facility] Other Evaluation note Note Date & Type Note Facility Evaluation note No assessment information availa [facility] Work Phone: History general Narrative - Reported Note Date & Type Note Facility History general Narrative - Reported Type Medical History chronic depression Medical History anxiety Surgical History appendectomy Surgical History LEEP Surgical History PE tubes Hospitalization History See Above [facility] [employer] Other Summary Purpose Family History No Family History Records FoundNo Family History Records FoundNo Family History Records Found Advance Directives No Advanced Directives Records FoundNo Advanced Directives Records FoundNo Advanced Directives Records Found Additional Source Comments INFORMATION SOURCE (unrecogn ized section and content) DATE CREATED AUTHOR 12/19/2022 [facility] DATE CREATED AUTHOR AUTHOR'S ORGANIZ ATION 11/09/2023 [facility] DATE CREATED AUTHOR AUTHOR'S ORGANIZ ATION 01/07/2024 [facility] EPIC REASON FOR VISIT (unrecogniz [...] BE BASED ON THE PRIMARY CLINICAL RECORDS. [employer] provides no warranty or guarantee of the accuracy or completeness of information in this document.
--- NOTE | 2024-02-02 18:43 | ED.GENADUL1 ---
HPI HPI - General Adult General Chief complaint: Dizziness Stated complaint: Dizziness Time Seen by Provider: 02/02/24 18:28 Source: patient Mode of arrival: Wheelchair History of Present Illness HPI narrative: Patient is a 28-year-old female who presents to the emergency department for the evaluation of dizziness and headache. She states for the last several days she has had a headache associated with light sensitivity and since yesterday she has felt very dizzy as though she is spinning in the room is spinning. She feels off balance. No falls or injuries. She has had no loss of vision, peripheral paresthesias. No fevers or vomiting. She states she feels nauseous. She has no significant history of headaches. No medications taken prior to arrival. Related Data Previous Rx's ?Medication ?Instructions ?Recorded hydrocodone 5 mg-acetaminophen 325 1 tab PO Q4H PRN pain 4 days #16 11/07/23 mg tablet tabs ibuprofen 800 mg tablet 800 mg PO Q8H PRN pain 14 days #40 11/07/23 tabs meclizine 25 mg chewable tablet 25 mg PO QID PRN dizziness #12 tabs 02/02/24 (Antivert) ondansetron 4 mg disintegrating 4 mg PO Q6H PRN nausea and 02/02/24 tablet vomiting #12 tabs Allergies Allergy/AdvReac Type Severity Reaction Status Date / Time No Known Drug Allergies Allergy Verified 10/28/23 10:45 Opioid HPI Opioid Management Most Recent Opioid Data: Last Pain Scale 4 11/07/23 15:39 Review of Systems ROS Constitutional Denies: fever or chills Eyes Denies: change in vision Ears, nose, mouth, and throat Denies: nasal congestion Cardiovascular Denies: chest pain Respiratory Denies: shortness of breath or cough Gastrointestinal Reports: nausea; Denies: vomiting or diarrhea Musculoskeletal Denies: back pain or neck pain Integumentary/Breast Denies: rash Neurological Reports: headache and dizziness Hematologic/Lymphatic Denies: easy bruising or easy bleeding [facility] Medical History (Updated 02/02/24 @ 20:17 by BRENT Arias) Deep vein thrombosis ?I82.409 - Acute embolism and thrombosis of unspecified deep veins of unspecified lower extremity (ICD-10) Anxiety ?F41.9 - Anxiety disorder, unspecified (ICD-10) COVID-19 ?U07.1 - COVID-19 (ICD-10) Migraine ?G43.909 - Migraine, unspecified, not intractable, without status migrainosus (ICD-10) GERD (gastroesophageal reflux disease) ?K21.9 - Gastro-esophageal reflux disease without esophagitis (ICD-10) Gestational diabetes ?O24.419 - Gestational diabetes mellitus in , unspecified control (ICD-10) Vaginal lesion ?N89.8 - Other specified noninflammatory disorders of vagina (ICD-10) HGSIL on cytologic smear of cervix ?R87.613 - High grade squamous intraepithelial lesion on cytologic smear of cervix (HGSIL) (ICD-10) HSV (herpes simplex virus) infection ?B00.9 - Herpesviral infection, unspecified (ICD-10) Cervical high risk human papillomavirus (HPV) DNA test positive ?R87.810 - Cervical high risk human papillomavirus (HPV) DNA test positive (ICD-10) Cervical dysplasia ?N87.9 - Dysplasia of cervix uteri, unspecified (ICD-10) Pelvic pain ?R10.2 - Pelvic and perineal pain (ICD-10) Abnormal uterine bleeding (AUB) ?N93.9 - Abnormal uterine and vaginal bleeding, unspecified (ICD-10) Menorrhagia ?N92.0 - Excessive and frequent menstruation with regular cycle (ICD-10) Request for sterilization ?Z30.2 - Encounter for sterilization (ICD-10) Surgical History (Updated 10/28/23 @ 10:50 by Argelia Winslow NP) History of myringotomy ?Z98.890 - Other specified postprocedural states (ICD-10) History of appendectomy ?Z90.49 - Acquired absence of other specified parts of digestive tract (ICD-10) H/O LEEP ?Z98.890 - Other specified postprocedural states (ICD-10) Social History Within the past year, how often did you have a drink containing alcohol: monthly or less Smoking status: Never smoker Non-prescribed substance use: denies use 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 Highest level of school completed/degree received: high school graduate Exam Narrative Exam Narrative: Gen.: Awake, alert, in no distress Head: Normocephalic, atraumatic ENT: Moist mucous membranes, TMs clear Respiratory: No respiratory distress, lungs clear bilaterally Cardio: Regular rate and rhythm Extremities: Moves extremities equally Psych: Normal mood and affect Neuro: No focal neuro deficit Skin: Warm, dry, intact Constitutional Vital Signs, click to edit/add: Last Vital Signs Temp 98.2 F 02/02/24 18:21 Pulse 77 02/02/24 18:21 Resp 16 02/02/24 18:21 BP 110/74 02/02/24 18:21 Pulse Ox 100 02/02/24 18:21 O2 Del Method Room Air 02/02/24 18:21 Course Vital Signs Vital signs: Vital Signs Temperature 98.2 F 02/02/24 18:21 Pulse Rate 77 02/02/24 18:21 Respiratory Rate 16 02/02/24 18:21 Blood Pressure 110/74 02/02/24 18:21 Pulse Oximetry 100 02/02/24 18:21 Oxygen Delivery Method Room Air 02/02/24 18:21 Temperature 98.2 F 02/02/24 18:21 Pulse Rate 77 02/02/24 18:21 Respiratory Rate 16 02/02/24 18:21 Blood Pressure 110/74 02/02/24 18:21 Pulse Oximetry 100 02/02/24 18:21 Oxygen Delivery Method Room Air 02/02/24 18:21 Medical Decision Making MDM Narrative Medical decision making narrative: Give the brain, lab studies and urine specimen are unremarkable. Patient with stable vital signs in the emergency department. She had significant clinical improvement after IV fluids, Antivert and Zofran. She declined Toradol for headache. She was able to ambulate to the bathroom steadily. She is prescribed Antivert and Zofran for home. Follow-up PCP and return to the emergency department if symptoms change or worsen Medical Records Medical records reviewed: Yes I reviewed the patient's medical records Lab Data Lab results reviewed: Yes I reviewed the patient's lab results Labs: Lab Results 02/02/24 02/02/24 Range/Units 18:43 20:10 WBC 6.4 (4.0-11.0) 10^3/uL RBC 4.39 (4.20-5.40) 10^6/uL Hgb 13.8 (12.0-16.0) g/dL Hct 38.5 (36.0-48.0) % MCV 87.7 (81.0-99.0) fL MCH 31.4 (26.7-34.0) pg MCHC 35.8 H (29.9-35.2) g/dL RDW 11.7 (11.0-15.0) % Plt Count 213 (150-450) 10^3/uL MPV 9.9 (9.5-13.5) fL Neut % (Auto) 67.2 (43.0-75.0) % Lymph % (Auto) 25.6 (20.5-60.0) % Barren % (Auto) 5.9 (1.7-12.0) % Eos % (Auto) 0.6 L (0.9-7.0) % Baso % (Auto) 0.5 (0.2-2.0) % Neut # (Auto) 4.3 (1.4-6.5) 10^3/uL Lymph # (Auto) 1.6 (1.2-3.8) 10^3/uL Barren # (Auto) 0.4 (0.3-0.8) 10^3/uL Eos # (Auto) 0.0 (0.0-0.7) 10^3/uL Baso # (Auto) 0.0 (0.0-0.1) 10^3/uL Abs Immat Gran (auto) 0.01 (0.00-0.03) 10^3/uL Imm/Tot Granulo (auto) 0.2 (0.0-0.5) % Sodium 143 (136-145) mmol/L Potassium 3.6 (3.5-5.1) mmol/L Chloride 105 (98-107) mmol/L Carbon Dioxide 27.1 (21.0-32.0) mmol/L Anion Gap 14.5 BUN 9.0 (7.0-18.0) mg/dL Creatinine 0.91 (0.55-1.02) mg/dL Est GFR ( Amer) >60 (>=60) Est GFR (Non-Af Amer) >60 (>=60) BUN/Creatinine Ratio 9.9 Glucose 98 (74-106) mg/dL Calcium 9.3 (8.5-10.1) mg/dL Total Bilirubin 0.6 (0.2-1.0) mg/dL AST 27 (15-37) U/L ALT 51 (14-59) U/L Alkaline Phosphatase 102 (46-116) U/L Total Protein 8.0 (6.4-8.2) g/dL Albumin 4.1 (3.4-5.0) g/dL Globulin 3.9 g/dL Albumin/Globulin Ratio 1.1 Serum HCG, Qual Negative (NEGATIVE) Urine Color Lt. yellow (YELLOW) Urine Clarity Clear (CLEAR) Urine pH 6.0 (5.0-9.0) Ur Specific [place] <=1.005 A (1.005-1.025) Urine Protein Negative (NEG/TRACE) mg/dL Urine Glucose (UA) Negative (NEGATIVE) mg/dL Urine Ketones Negative (NEGATIVE) mg/dL Urine Occult Blood Negative (NEGATIVE) Urine Nitrite Negative (NEGATIVE) Urine Bilirubin Negative (NEGATIVE) Urine Urobilinogen 0.2 (0.2-1.0) EU/dL Ur Leukocyte Esterase Negative (NEGATIVE) Imaging Data CT scan - head: Attestation: I have reviewed the pertinent imaging results. Radiologist's impression: ITS Impressions Head CT 02/02/24 18:28 IMPRESSION: No acute intracranial process. Electronically authenticated by: SARAH UNLU Date: 02/02/2024 19:47 ECG Data Attestation: I personally reviewed and interpreted this ECG as follows: (Normal sinus rhythm at a rate of 51, sinus arrhythmia noted with no acute ST elevation or ectopy. EKG reviewed by attending physician) Discharge Plan Discharge Stand Alone Forms: Portal Instructions Chief Complaint: Dizziness Clinical Impression: Vertigo Patient Disposition: Home, Self-Care Time of Disposition Decision: 20:17 Condition: Good Prescriptions / Home Meds: New ondansetron 4 mg tablet,disintegrating 4 mg PO Q6H PRN (Reason: nausea and vomiting) Qty: 12 0RF meclizine [Antivert] 25 mg tablet,chewable 25 mg PO QID PRN (Reason: dizziness) Qty: 12 0RF No Action ibuprofen 800 mg tablet 800 mg PO Q8H PRN (Reason: pain) 14 Days Qty: 40 0RF hydrocodone-acetaminophen 5-325 mg tablet 1 tab PO Q4H PRN (Reason: pain) 4 Days Qty: 16 0RF Print Language: Kinyarwanda Instructions: Vertigo (ED) Referrals: Arslan Marcus MD [Primary Care Provider] - 1 week
[2024-02-02] MEDS: 0.9 % SODIUM CHLORIDE 1,000 ML 1000 ML IV (18:47)
[2024-02-02] MEDS: ONDANSETRON PF 4 MG/2 ML VIAL IV (18:49)
[2024-02-02 18:51] LABS: Basophils Percent Auto 0.5 % (0.2-2.0); Eosinophils Percent Auto 0.6 % (0.9-7.0); Hematocrit 38.5 % (36.0-48.0); Hemoglobin 13.8 g/dL (12.0-16.0); Immature Granulocytes Abs Auto 0.01 10^3/uL (0.00-0.03); Immature Granulocytes Pct Auto 0.2 % (0.0-0.5); Lymphocytes Absolute Auto 1.6 10^3/uL (1.2-3.8); Lymphocytes Percent Auto 25.6 % (20.5-60.0); Mean Corpuscular HGB Conc 35.8 g/dL (29.9-35.2); Mean Corpuscular Hemoglobin 31.4 pg (26.7-34.0); Mean Corpuscular Volume 87.7 fL (81.0-99.0); Mean Platelet Volume 9.9 fL (9.5-13.5); Monocytes Absolute Auto 0.4 10^3/uL (0.3-0.8); Monocytes Percent Auto 5.9 % (1.7-12.0); Neutrophils Absolute Auto 4.3 10^3/uL (1.4-6.5); Neutrophils Percent Auto 67.2 % (43.0-75.0); Platelet Count 213 10^3/uL (150-450); Red Blood Count 4.39 10^6/uL (4.20-5.40); Red Cell Distribution Width 11.7 % (11.0-15.0); White Blood Count 6.4 10^3/uL (4.0-11.0)
[2024-02-02 19:09] LABS: HCG Qualitative NEGATIVE (NEGATIVE)
[2024-02-02] MEDS: MECLIZINE HCL 12.5 MG TABLET 25 MG PO (19:27)
[2024-02-02 19:46] LABS: Alanine Aminotransferase 51 U/L (14-59); Albumin Globulin Ratio 1.1; Albumin Level 4.1 g/dL (3.4-5.0); Alkaline Phosphatase 102 U/L (46-116); Anion Gap 14.5; Aspartate Amino Transferase 27 U/L (15-37); BUN Creatinine Ratio 9.9; Bilirubin Total 0.6 mg/dL (0.2-1.0); Calcium 9.3 mg/dL (8.5-10.1); Carbon Dioxide 27.1 mmol/L (21.0-32.0); Chloride 105 mmol/L (98-107); Estimated GFR (African America >60 (>=60); Estimated GFR (Non-African Ame >60 (>=60); Globulin 3.9 g/dL; Glucose 98 mg/dL (74-106); Potassium 3.6 mmol/L (3.5-5.1); Sodium 143 mmol/L (136-145)
[2024-02-02 20:13] LABS: Bilirubin Urine NEGATIVE (NEGATIVE); Blood Urine NEGATIVE (NEGATIVE); Clarity Urine CLEAR (CLEAR); Color Urine LT. YELLOW (YELLOW); Glucose Urine UA NEGATIVE (NEGATIVE); Ketones Urine NEGATIVE (NEGATIVE); Leukocyte Esterase Urine NEGATIVE (NEGATIVE); Nitrite Urine NEGATIVE (NEGATIVE); Protein Urine NEGATIVE (NEG/TRACE); Specific Gravity Urine <=1.005 (1.005-1.025); Urobilinogen Urine 0.2 EU/dL (0.2-1.0)
[2024-02-02 20:14] LABS: Urine Microscopic Indicated NO
== END 2024-02-02 20:34 | disposition home or self-care (01) ==
PROVIDERS: Physician Assistant; Emergency Provider Internal Medicine; PCP Family Medicine
DX: R42 Dizziness and giddiness (principal)
CPT/HCPCS: 36415; 70450; 80053; 81003; 84703; 85025; 93005; 96361; 96374; 99285

== ENCOUNTER 2025-01-24 20:32 | Outpatient (REF) | payer MEDICAID, SELFPAY ==
--- OUTSIDE RECORDS SUMMARY | 2023-10-27 05:44 | XMS_ITS ---
Author Organization The [facility] in [place] Address [address] [place] [address] Care Team Providers Care Stock Room Manager Name Role Phone REINA DUMONT MD Primary Care Provider ROMANA DUMONT Unavailable [phone] REASON FOR VISIT Protonix refill Medications Medication SIG (Take, Route, Fr equency, Duration) Notes Start Date End Date Status Protonix 40 MG 1 tablet Orally Once a day for 90 days Active Encounters Encounter Location Date Provider Diagnosis [address] [address] 10/27/2023 ROMANA DUMONT Plan Of Treatment Medication Medication Name Sig Start Date Stop Date Notes Protonix 40 MG 1 tablet Orally Once a day for 90 days Progress Notes * Amelia DURAN EDOB:[birth year] (28 yo F)Acc No.[id number]:10/27/2023 Patient: Amelia Neff :1995 A ge:28 Y S ex:Female [facility] [address] * Refills Refill Protonix Tablet Delayed Release, 40 MG, Orally, 90, 1 tablet, Once a day, 90 days, Refills=3 * true * Date: Generated for Printi ng/Faxing/eTransmitting on: 0 01/24/2025 08:39 PM EDT
--- OUTSIDE RECORDS SUMMARY | 2023-10-31 07:00 | XMS_ITS ---
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 :1995 A ge:28 Y S ex:Female Date:10/31/2023 Address:[address] [place] [address] [id number] Pcp:REINA MARCUS MD Subjective: * Chief Complaints: * 1 . Wants skin tags removed. * Medical History: Objective: * Vitals: Assessment: Plan: * Treatment: * * Electronic signature of REINA MARCUS MD on 01/24/2025 at 08:39 PM EDT Sign off status: Pending Visit Status: C ANC (Cancelled) * Provider: Reji Marcus M.D. Date: 0 10/31/2023 Generated for Vicky mendoza/Jese/Berryitting on: 0 01/24/2025 08:39 PM EDT
--- OUTSIDE RECORDS SUMMARY | 2024-06-20 09:30 | XMS_ITS ---
Author Organization [facility] Address [address] [place], [place] [id number] Care Team Providers Care Ripening Room Attendant Name Role Phone Liliya Stein Unavailable [phone] REASON FOR VISIT Rest #2, #3 Medications Medication SIG (Take, Route, Frequency, Duration) Notes Start Date End Date Status Probiotic 03/14/2024 Active Encounters Encounter Location Date Provider Diagnosis [facility] [address] [place], [place] [id number] 06/20/2024 Liliya Stein Plan Of Treatment No Information Progress Notes * Amelia DURANDOB:1995 (29 yo F)Acc No.[id number]:06/20/2024 Patient: Jeb WOLFEley Provider: Patrick Stein DDS :1995 A ge:29 Y S ex:Female Date:06/20/2024 Address:[address] [place], [place] [id number] Subjective: * Chief Complaints: * 1 . Rest #2, #3. * Medical History: * Medications: T aking Probiotic Objective: * Vitals: Assessment: Plan: * Treatment: * Billing Information: * Visit Code: * Procedure Codes: * Electronic signature of Cindy Stein DDS on 01/24/2025 at 02:02 PM EDT Sign off status: Pending * Provider: Patrick Stein DDS Date: Generated for Printi ng/Faxing/eTransmitting on: 0 01/24/2025 02:02 PM EDT
--- OUTSIDE RECORDS SUMMARY | 2025-01-24 14:00 | XMS_ITS | Encounter Summary ---
Author Organization [facility] Address [address] [place] [address] Care Team Providers Care Healthcare Administration Intern Name Role Phone Arslan Marcus MD Primary Care Provider [phone] Reason for Visit * Reason Comments Well Women Visit Encounter Details Date Type Department Care Team (Late st Contact Info) Description 01/24/2025 2:00 PM EDT Office Visit [facility] [address] [phone] Gogo Novoa PA [address] [facility] [place], [facility] Well woman exam with routine gynecological exam Social History Tobacco Use Types Packs/Day Years Used Date Smoking Tobacco: Never Smokeless Tobacco: Never Alcohol Use Standard Drinks/Week Comments Never 0 (1 standard drink = 0.6 oz pur e alcohol) Comments No Sex and Gender Information Value Date Recorded Sex Assigned at Not on file Legal Sex Female 11:47 PM EDT Gender Identity Not on file Sexual Orientation Not on file documented as of this encounter Last Filed Vital Signs Vital Sign Reading Time Taken Comments Blood Pressure 100/70 01/24/2025 2:29 PM EDT Pulse - - Temperature - - Respiratory Rate - - Oxygen Saturation - - Inhaled Oxygen Concentration - - Weight 54.2 kg (119 lb 8 oz) 01/24/2025 2:29 PM EDT Height - - Body Mass Index 21.86 01/05/2024 2:05 PM EDT documented in this encounter Progress Notes * BRENT Schaefer - 01/24/2025 2:00 PM EDT Reason for Appointment: Patient ID: Amelia Duran is a 29 y.o. female who presents for Well Women Visit Patient presents today for Annual Exam. MEDICATIONS Current Outpatient Medications Medication Instructions norgestimate-ethinyl estradiol (Sprintec 28) 0.25-35 MG-MCG tablet 1 tablet, Oral, Daily pantoprazole (PROTONIX) 40 mg, Oral, Daily sertraline (ZOLOFT) 25 mg, Oral, Daily ALLERGIES No Known Allergies PROBLEMS Active Ambulatory Problems Diagnosis Date Noted No Active Ambulatory Problems Resolved Ambulatory Problems Diagnosis Date Noted No Resolved Ambulatory Problems Past Medical History: Diagnosis Date BMI 25.0-25.9,adult Cervical dysplasia Cervical high risk human papillomavirus (HPV) DNA test positive Decreased libido Encounter for follow-up H/O LEEP Herpes simplex virus (HSV) infection HGSIL on cytologic smear of cervix History of cervical dysplasia Pap smear abnormality of vagina with ASC-US Papanicolaou smear of cervix with atypical squamous cells of undetermined significance (ASC-US) Vaginal lesion HISTORY PAST MEDICAL HISTORY SOCIAL HISTORY Past Medical History: Diagnosis Date BMI 25.0-25.9,adult Cervical dysplasia Cervical high risk human papillomavirus (HPV) DNA test positive Decreased libido Encounter for follow-up H/O LEEP Herpes simplex virus (HSV) infection HGSIL on cytologic smear of cervix History of cervical dysplasia Pap smear abnormality of vagina with ASC-US Papanicolaou smear of cervix with atypical squamous cells of undetermined significance (ASC-US) Vaginal lesion Social History Tobacco Use Smoking status: Never Smokeless tobacco: Never Substance Use Topics Alcohol use: Never Drug use: Never FAMILY HISTORY Family History Problem Relation Name Age of Onset Mental illness Mother Mental illness Maternal Grandmother SURGICAL HISTORY Past Surgical History: Procedure Laterality Date APPENDECTOMY 2009 CERVICAL BIOPSY W/ LOOP ELECTRODE EXCISION 2018 LEEP ENDOMETRIAL ABLATION 11/07/2023 SALPINGECTOMY Bilateral 11/07/2023 michael with hysteroscopy REVIEW OF SYSTEMS Review of Systems: Review of Systems Constitutional: Negative. HENT: Negative. Eyes: Negative. Respiratory: Negative. Cardiovascular: Negative. Gastrointestinal: Negative. Genitourinary: Negative. Musculoskeletal: Negative. Skin: Negative. Neurological: Negative. All other systems reviewed and are negative. Hematological: Negative. Endocrine: Negative. Allergic/Immunologic: Negative. OBJECTIVE Objective: Physical Exam Constitutional: Appearance: Normal appearance. She is well-developed. Genitourinary: Vulva normal. Right Adnexa: not tender and no mass present. Left Adnexa: not tender and no mass present. No cervical discharge. Breasts: Breasts are soft. Right: Normal. Left: Normal. HENT: Head: Normocephalic. Nose: Nose normal. Mouth/Throat: Mouth: Mucous membranes are moist. Cardiovascular: Rate and Rhythm: Normal rate and regular rhythm. Pulmonary: Effort: Pulmonary effort is normal. Breath sounds: Normal breath sounds. Abdominal: General: Bowel sounds are normal. There is no distension. Palpations: Abdomen is soft. Tenderness: There is no abdominal tenderness. There is no guarding or rebound. Musculoskeletal: General: No swelling. Normal range of motion. Cervical back: Normal range of motion. Right lower leg: No edema. Left lower leg: No edema. Neurological: General: No focal deficit present. Mental Status: She is alert and oriented to person, place, and time. Skin: General: Skin is warm and dry. Psychiatric: Mood and Affect: Mood normal. Behavior: Behavior normal. Vitals and nursing note reviewed. Exam conducted with a archival studies professor present. Vitals: Estimated body mass index is 24.33 kg/m?? as calculated from the following: Height as of 01/05/24: 5' 2 . Weight as of 01/05/24: 133 lb. BP: No LMP recorded. Patient has had an ablation. ASSESSMENT & PLAN ICD-10-CM 1. Well woman exam with routine gynecological exam Z01.419 Annual Exam: Patient presents today for an annual exam. Patient states she is doing well and has no complaints. Pap was obtained without difficulty. No orders of the defined types were placed in this encounter. Follow Up: Patient is to return in one year for annual unless needed otherwise. Documented by Caro Cleveland LPN on behalf of: BRENT Schaefer documented in this encounter Plan of Treatment Upcoming Encounters Date Type Department Care Team (Late st Contact Info) Description 01/28/2025 9:20 AM EDT Office Visit [facility] [address] [place] [phone] Waqar Briones, DO [address] [place] [address] Scheduled Orders Name Type Priority Associated Diagnoses Orde r Schedule Pap Smear Pathology and Cytology Routine Well woman exam with routine gynecological exam Ordered: 01/24/2025 HPV DNA probe, amplified Microbiology Routine Well woman exam with routine gynecological exam Ordered: 01/24/2025 documented as of this encounter Visit Diagnoses Diagnosis Well woman exam with routine gynecological exam Routine gynecological examination documented in this encounter Care Teams Healthcare Administration Intern Relationship Specialty Start Date End Date Arslan Marcus MD [address] [place] [phone] PCP - General Family Medicine 05/03/23 documented as of this encounter
--- OUTSIDE RECORDS SUMMARY | 2025-01-24 20:39 | XMS_ITS | Encounter Summary ---
Author Organization [facility] Address [address] [place] [address] Care Team Providers Care In School Suspension Aide Name Role Phone Arslan Marcus MD Primary Care Provider [phone] Encounter Details Date Type Department Care Team (Late Contact Info) Description 11/09/2023 Abstract [facility] [address] [place] [phone] Waqar Briones [address] [place] [address] Social History Tobacco Use Types Packs/Day Years [...] on file documented as of this encounter Plan of Treatment Upcoming Encounters Date Type Department Care Team (Late Contact Info) Description 01/28/2025 9:20 AM EDT Office Visit [facility] [address] [place] [address] Waqar Briones [address] [place], [place] [phone] documented as of this encounter Visit Diagnoses Not on filedocumented in this encounter Care Teams In School Suspension Aide Relationship Specialty Start Date End Date Arslan Marcus MD [address] [facility] [place] [phone] PCP - General Family Medicine 05/03/23 documented as of this encounter
--- OUTSIDE RECORDS SUMMARY | 2025-01-24 20:39 | XMS_ITS | Encounter Summary ---
Author Organization [facility] Address [address] [place] [address] Care Team Providers Care Technologist Development Name Role Phone Arslan Marcus MD Primary Care Provider [phone] Encounter Details Date Type Department Care Team (Late st Contact Info) Description 05/05/2023 Clinisync Result Encounter [facility] External Department Unsolicited Jonny Briones, [address] [place] [address] Social History Tobacco Use Types Packs/Day Years Used Date Smoking Tobacco: Never Smokeless Tobacco: Never Alcohol Use Standard Drinks/Week Comments Never 0 (1 standard drink = 0.6 oz pur e alcohol) Comments Unknown Sex and Gender Information Value Date Recorded Sex Assigned at Not on file Legal Sex Female 11:47 PM EDT Gender Identity Not on file Sexual Orientation Not on file documented as of this encounter Plan of Treatment Upcoming Encounters Date Type Department Care Team (Late Contact Info) Description 01/28/2025 9:20 AM EDT Office Visit [facility] OB [address] [facility] [place] [phone] Jonny Briones[address] [place] [address] documented as of this encounter Procedures Procedure Name Priority Date/Time Associated Diagnosis Comments US PELVIS W/ TRANSVAGINAL 05/05/2023 4:51 PM EDT documented in this encounter Results * US PELVIS W/ TRANSVAGINAL (05/05/2023 4:51 PM EDT) Anatomical Region Laterality Modality Other 05/05/2023 4:51 PM EDT Narrative 05/05/2023 4:51 PM EDT [place] [id number] Ultrasound Report Signed Patient: AMELIA DURAN MR#: [id number] : 1995 Acct:[id number] Age/Sex: 28 / F ADM Date: 05/05/23 Loc: US Attending Dr: Jonny Briones D.O. Ordering Physician: Jonny Briones D.O. Date of Service: 05/05/23 Procedure(s): US pelvis w/ transvaginal Accession Number(s): [id number] cc: Jonny Briones D.O.; Arslan Marcus M.D. [address] [address] Patient Name: AMELIA DURAN MRN: [facility]:[id number] date: 1995 Sex: F Assigned Patient Location: US Current Patient Location: US Accession/Order Number: [id number] Exam Date: 05/05/2023 10:05 Report Date: 05/05/2023 16:51 At the request of: JONNY BRIONES Procedure: US pelvis w/ transvaginal EXAMINATION: US pelvis w/ transvaginal HISTORY: Mennorrhagia with regular cycle N92.0 COMPARISON: No relevant comparison available. FINDINGS: Transabdominal and transvaginal images The uterus is normal in size, contour and myometrial echotexture measuring 8.2 x 4.4 x 3.7 cm. A few areas of hyperechogenicity measuring up to 3 mm, calcifications are favored, nonspecific. The endometrium measures 5 mm, normal. The right ovary is normal measuring 2.6 x 2.0 x 1.6 cm. Normal color Doppler flow. A few scattered areas of anechoic echogenicity, the largest measuring 1.1 x 1.7 x 1.1 cm, cysts and/or follicles The left ovary is normal in appearance measuring 2.7 x 2.1x 1.7 cm. Normal color Doppler flow. Few scattered subcentimeter areas of anechoic echogenicity, follicles Small amount of free pelvic fluid likely physiologic US/US pelvis w/ transvaginal IMPRESSION: No acute abnormality Electronically authenticated by: KAILA ADAMS Date: 05/05/2023 16:51 Dictated By: Kaila Adams M.D. Signed By: 05/05/231652 DD/ 50 TD/TT: Chief Bank Examiner: Procedure Note Radiology, Radiologist, MD - 05/20/2023 [place] [address] Ultrasound Report Signed Patient: AMELIA DURAN EMR#: [id number] : 1995Acct:[id number] Age/Sex: 28 / FADM Date: 05/05/23 Loc: US Attending Dr: Jonny Briones D.O. Ordering Physician: Jonny Briones D.O. Date of Service: 05/05/23 Procedure(s): US pelvis w/ transvaginal Accession Number(s): [id number] cc: Jonny Briones D.O.; Arslan Marcus M.D. The [place] [id number] Patient Name: AMELIA DURAN MRN: [id number]:[id number] date: 1995 Sex: F Assigned Patient Location: Current Patient Location: Accession/Order Number: [id number] Exam Date: 05/05/2023 10:05 Report Date: 05/05/2023 16:51 At the request of: JONNY BRIONES Procedure: US pelvis w/ transvaginal EXAMINATION: US pelvis w/ transvaginal HISTORY: Mennorrhagia with regular cycle N92.0 COMPARISON: No relevant comparison available. FINDINGS: Transabdominal and transvaginal images The uterus is normal in size, contour and myometrial echotexture measuring8.2 x 4.4 x 3.7 cm. A few areas of hyperechogenicity measuring up to 3 mm, calcifications are favored, nonspecific. The endometrium measures 5 mm, normal. The right ovary is normal measuring 2.6 x 2.0 x 1.6 cm. Normal colorDoppler flow. A few scattered areas of anechoic echogenicity, the largestmeasuring 1.1 x 1.7 x 1.1 cm, cysts and/or follicles The left ovary is normal in appearance measuring 2.7 x 2.1x 1.7 cm. Normal color Doppler flow. Few scattered subcentimeter areas of anechoic echogenicity, follicles Small amount of free pelvic fluid likely physiologic US/US pelvis w/ transvaginal IMPRESSION: No acute abnormality Electronically authenticated by: KAILA ADAMS Date: 05/05/2023 16:51 Dictated By: Kaila Adams M.D. Signed By:05/05/231652 DD/ 50 TD/TT: Chief Bank Examiner: us Jonny Briones DO [facility] Final Result documented in this encounter Visit Diagnoses Not on filedocumented in this encounter Care Teams Technologist Development Relationship Specialty Start Date End Date Arslan Marcus MD [address] [place] [address] PCP - General Family Medicine 05/03/23 documented as of this encounter
--- OUTSIDE RECORDS SUMMARY | 2025-01-24 20:39 | XMS_ITS | Patient Health Record ---
Author Organization [facility] Address [address] [place], [place] [address] Care Team Providers Care Sinter Feeder Name Role Phone Stein, Liliya Unavailable [phone] Allergies No Known Allergies Reason For Referral No Information Medications Medication SIG (Take, Route, Frequency, Duration) Notes Start Date End Date Status Probiotic 03/14/2024 Active Social History Tobacco Use: Social History Observation Description Date Details (start date - stop date) Never Smoker NA - NA Tobacco Control (Standard) Question Answer Notes Tobacco use: Nonsmoker Vital Signs Heart Rate 69 /min 03/15/2024 Blood pressure diastolic 89 mm Hg 03/15/2024 Height-cm 157.48 cm 03/15/2024 Weight-kg 56.7 kg 03/15/2024 Height 62 in 03/15/2024 Blood pressure systolic 132 mm Hg 03/15/2024 Weight 125 lbs 03/15/2024 BMI 22.86 kg/m2 03/15/2024 Encounters Encounter Location Date Provider Diagnosis [facility] [address] [place], [place] [id number] 03/14/2024 Liliya Stein Encounter for scre ening for dental disorders Z13.84 ; Dental caries into dentine K02.62 and Encounter for dental examination and cleaning with abnormal findings Z01.21 [facility] [address] [place], [place] [id number] 03/15/2024 Liliya Stein Encounter for dent al examination and cleaning with abnormal findings Z01.21 Assessments Encounter Date Diagnosis (ICD Code) Assessment Notes Treatment Notes Treatment Clinical Notes Section Notes 03/14/2024 Encounter for screening for dental disorders (ICD-10 - Z13.84) 03/15/2024 Encounter for dental examination and cleaning with abnormal findings (ICD-10 - Z01.21) 03/14/2024 Dental caries into dentine (ICD-10 - K02.62) 03/14/2024 Encounter for dental examination and cleaning with abnormal findings (ICD-10 - Z01.21) Plan Of Treatment No Information Insurance Providers Payer Name Payer Address Payer Phone Subscriber Number Group Number Insured Name Patient Relationship to Insured Coverage Start Date Coverage End Date Tianaa [address] st [facility] [address] [place] [address] [id number] Amelia Duran Self - patient is the insured 3 [employer] after [employer] [address] [place], [place] [id number] Amelia Duran Self - patient is the insured 3
--- OUTSIDE RECORDS SUMMARY | 2025-01-24 20:39 | XMS_ITS | Clinical Summary ---
Author Organization [facility] Address [id number] [address] [place] [address] Care Team Providers Care Textile Knitter Name Role Phone Unavailable Primary Care Provider Unavailabl e Allergies No known active allergies Medications sertraline (ZOLOFT) 25 mg tablet Take 0.5 tablets (12.5 mg total) by mouth in the morning. Active methylPREDNISol one (MEDROL, LAM,) 4 mg tablet follow package directions 21 tablet 3 Active Social History Tobacco Use Types Packs/Day Years Used Date Smoking Tobacco: Never Assessed Childcare Answer Date Recorded Childcare Unknown 02/07/2019 Employment Answer Date Recorded Employment Unknown 02/07/2019 Hunger Screening Answer Date Recorded Within the past 12 months we worried whether our food would run out before we got money to buy more. Never True 03/01/2023 Within the past 12 months th e food we bought just didn't last and we didn't have money to get more. Never True 03/01/2023 Comments No Sex and Gender Information Value Date Recorded Sex Assigned at Not on file Legal Sex Female 11:49 AM EDT Gender Identity Not on file Sexual Orientation Not on file Last Filed Vital Signs Vital Sign Reading Time Taken Comments Blood Pressure 117/76 03/01/2023 3:56 PM EDT Pulse 60 03/01/2023 3:56 PM EDT Temperature 36.9 C (98.5 F) 03/01/2023 3:56 PM EDT Respiratory Rate 16 03/01/2023 3:56 PM EDT Oxygen Saturation 98% 03/01/2023 3:56 PM EDT Inhaled Oxygen Concentration - - Weight 61.7 kg (136 lb) 03/01/2023 3:56 PM EDT Height 157.5 cm (5' 2 ) 03/01/2023 3:56 PM EDT Body Mass Index 24.87 03/01/2023 3:56 PM EDT Plan of Treatment Not on file Medical Devices Not on file Insurance [employer] [place] [employer]
--- OUTSIDE RECORDS SUMMARY | 2025-01-24 20:39 | XMS_ITS | Encounter Summary ---
Author Organization [facility] Address [address] [place] [address] Care Team Providers Care Automation Controls Expert Name Role Phone Arslan Marcus MD Primary Care Provider [phone] Encounter Details Date Type Department Care Team (Late st Contact Info) Description 09/27/2023 Clinisync Result Encounter [facility] External Department Unsolicited Jonny Briones, [address] [place] [address] Social History Tobacco Use Types Packs/Day Years [...] 01/28/2025 9:20 AM EDT Office Visit [facility] OB [address] [facility] [address] [phone] Jonny Briones[address] [place] [address] documented as of this encounter Procedures Procedure Name Priority Date/Time Associated Diagnosis Comments US PELVIS W/ TRANSVAGINAL 09/27/2023 10:46 AM EST documented in this encounter Results * US PELVIS W/ TRANSVAGINAL (09/27/2023 10:46 AM EST) Anatomical Region Laterality Modality Other 09/27/2023 10:4 6 AM EST Narrative 09/27/2023 10:49 [place] [address] Ultrasound Report Signed Patient: AMELIA DURAN MR#: [id number] : 1995 Acct:[id number] Age/Sex: 28 / F ADM Date: 09/27/23 Loc: US Attending Dr: Jonny Briones D.O. Ordering Physician: Jonny Briones D.O. Date of Service: 09/27/23 Procedure(s): US pelvis w/ transvaginal Accession Number(s): [id number] cc: Jonny Briones D.O.; Arslan Marcus M.D. [address] [address] Patient Name: AMELIA DURAN MRN: [id number] date: 1995 Sex: F Assigned Patient Location: US Current Patient Location: US Accession/Order Number: [id number] Exam Date: 09/27/2023 09:45 Report Date: 09/27/2023 10:46 At the request of: JONNY BRIONES Procedure: US pelvis w/ transvaginal EXAM: Pelvic ultrasound HISTORY: . Pelvic Pain In Female R10.2 . COMPARISON: 05/05/2023 TECHNIQUE: Transabdominal and transvaginal scanning was performed FINDINGS: The pelvis demonstrates uterus to measure 8.1 x 4.7 x 4.1 cm. There are couple small hyperechoic areas within the myometrium most consistent with calcifications. Endometrial complex measures 5 mm. Right ovary measures 2.1 x 2.4 x 1.4 cm. Color-flow is noted. Follicles are noted. Left ovary measures 2.9 x 1.7 x 1.4 cm. Color-flow is noted. Follicles are noted. No fluid is noted in the cul-de-sac. US/US pelvis w/ transvaginal IMPRESSION: 1. Normal-appearing uterus and endometrial complex. 2. Normal-appearing ovaries. 3. No change from the previous exam. Electronically authenticated by: KAILA OTERO Date: 09/27/2023 10:46 Dictated By: Kaila Otero M.D. Signed By: 09/27/23 1049 DD/ 1046 TD/TT: Primary Health Care Nurse: Procedure Note Radiology, Radiologist, - 11/02/2023 The [place] [id number] Ultrasound Report Signed Patient: AMELIA DURAN EMR#: [id number] : 1995Acct:[id number] Age/Sex: 28 FADM Date: 09/27/23 Loc: US Attending Dr: Jonny Briones D.O. Ordering Physician: Jonny Briones D.O. Date of Service: 09/27/23 Procedure(s): US pelvis w/ transvaginal Accession Number(s): [id number] cc: Jonny Briones D.O.; Arslan Marcus M.D. The [place] [id number] Patient Name: AMELIA DURAN MRN: [id number] date: 1995 Sex: F Assigned Patient Location: US Current Patient Location: US Accession/Order Number: [id number] Exam Date: 09/27/2023 09:45 Report Date: 09/27/2023 10:46 At the request of: JONNY BRIONES Procedure: US pelvis w/ transvaginal EXAM: Pelvic ultrasound HISTORY: . Pelvic Pain In Female R10.2 . COMPARISON: 05/05/2023 TECHNIQUE: Transabdominal and transvaginal scanning was performed FINDINGS: The pelvis demonstrates uterus to measure 8.1 x 4.7 x 4.1 cm.There are couple small hyperechoic areas within the myometrium most consistentwith calcifications. Endometrial complex measures 5 mm. Right ovary measures 2.1 x 2.4 x 1.4 cm. Color-flow is noted. Folliclesare noted. Left ovary measures 2.9 x 1.7 x 1.4 cm. Color-flow is noted. Follicles are noted. No fluid is noted in the cul-de-sac. US/US pelvis w/ transvaginal IMPRESSION: 1. Normal-appearing uterus and endometrial complex. 2. Normal-appearing ovaries. 3. No change from the previous exam. Electronically authenticated by: KAILA OTERO Date: 09/27/2023 10:46 Dictated By: Kaila Otero M.D. Signed By:09/27/23 1049 DD/ 1046 TD/TT: Primary Health Care Nurse: us Jonny Anali DO [facility] Final Result documented in this encounter Visit Diagnoses Not on filedocumented in this encounter Care Teams Automation Controls Expert Relationship Specialty Start Date End Date Arslan Marcus MD [address] [place] [phone] PCP - General Family Medicine 05/03/23 documented as of this encounter
--- OUTSIDE RECORDS SUMMARY | 2025-01-24 20:39 | XMS_ITS | Encounter Summary ---
Author Organization [facility] Address [address] [place] [address] Care Team Providers Care Kennel Staff Member Name Role Phone Arslan Marcus MD Primary Care Provider [phone] Encounter Details Date Type Department Care Team (Late Contact Info) Description 01/24/[address] [facility] OB [address] [facility] [place] [address] Gogo Novoa PA [address] [place] [address] [place] [address] Social History Tobacco Use Types Packs/Day [...] Upcoming Encounters Date Type Department Care Team ([facility] Contact Info) Description 01/28/2025 9:20 AM EDT Office Visit [facility] OB [address] [facility] [place] [address] Waqar Briones DO [address] [place] [address] [place] [address] documented as of this encounter Visit Diagnoses Not on filedocumented in this encounter Care Teams Kennel Staff Member Relationship Specialty Start Date End Date Arslan Marcus MD [address] [facility] [place] [address] PCP - General Family Medicine 05/03/23 documented as of this encounter
--- OUTSIDE RECORDS SUMMARY | 2025-01-24 20:39 | XMS_ITS | Encounter Summary ---
Author Organization [facility] Address [address] [place] [address] Care Team Providers Care Machine Operator Slitter Technician Name Role Phone Arslan Marcus MD Primary Care Provider [phone] Encounter Details Date Type Department Care Team (Late st Contact Info) Description 05/05/2023 Abstract [facility] [address] [facility] [place] [phone] Leonor Reyes LPN Social History Tobacco Use Types Packs/Day Years [...] 01/28/2025 9:20 AM EDT Office Visit [facility] [address] [facility] [place] [phone] Waqar Briones [address] [place] [address] documented as of this encounter Visit Diagnoses Not on filedocumented in this encounter Care Teams Machine Operator Slitter Technician Relationship Specialty Start Date End Date Arslan Marcus MD [address] [facility] [place] [address] PCP - General Family Medicine 05/03/23 documented as of this encounter
--- OUTSIDE RECORDS SUMMARY | 2025-01-24 20:39 | XMS_ITS | Encounter Summary ---
Author Organization [facility] Address [address] [place] [address] Care Team Providers Care Light Cleaner Name Role Phone Arslan Marcus MD Primary Care Provider [phone] Encounter Details Date Type Department Care Team (Late Contact Info) Description 11/21/2023 Abstract [facility] OB [address] [facility] [place] [phone] Waqar Briones [address] [place] [address] Social History Tobacco Use Types [...] 01/28/2025 9:20 AM EDT Office Visit [facility] OB [address] [place] [address] Waqar Briones [address] [place], [place] [address] documented as of this encounter Visit Diagnoses Not on filedocumented in this encounter Care Teams Light Cleaner Relationship Specialty Start Date End Date Arslan Marcus MD [address] [facility] [place] [address] PCP - General Family Medicine 05/03/23 documented as of this encounter
--- OUTSIDE RECORDS SUMMARY | 2025-01-24 20:39 | XMS_ITS | Encounter Summary ---
Author Organization [facility] Address [address] [facility] [address] Care Team Providers Care Horticulture Superintendent Name Role Phone Arslan Marcus MD Primary Care Provider [phone] Encounter Details Date Type Department Care Team (Late st Contact Info) Description 01/13/2024 Orders Only [facility]OM[facility] [address] [place] [phone] Caro Cleveland LPN [address] [facility] [address] Karen ZARAGOZA [id number] Social History Tobacco Use Types Packs/Day Years [...] 01/28/2025 9:20 AM EDT Office Visit [facility] [address] [facility] [place] [address] Waqar Briones DO [address] [place] [address] [place] [address] documented as of this encounter Procedures Procedure Name Priority Date/Time Associated Diagnosis Comments PAP SMEAR Routine 01/05/2024 12:00 AM EDT documented in this encounter Results * Pap Smear (01/05/2024 12:00 AM EDT) Swab Cervical swab / Unknown us [facility] Anali Nurse LAB CYTOLOGY ORDERABLES Final Result EXTERNAL LAB documented in this encounter Visit Diagnoses Not on filedocumented in this encounter Care Teams Horticulture Superintendent Relationship Specialty Start Date End Date Arslan Marcus MD [address] [place] [phone] PCP - General Family Medicine 05/03/23 documented as of this encounter
--- OUTSIDE RECORDS SUMMARY | 2025-01-24 20:39 | XMS_ITS | Clinical Summary ---
Author Organization [facility] Address [address] [place] [address] Care Team Providers Care Rug Hooker Hand Name Role Phone Arslan Marcus MD Primary Care Provider [phone] Allergies No known active allergies Medications Multiple Vitamins-Minerals (Womens Multi Vitamin & Mineral) tabletIndications :Well woman exam with routine gynecological exam Take 1 tablet by mouth Daily 30 tablet 11 01/25/20 25 025 Active pantoprazole (ProtoNix) 40 MG EC tablet Take 40 mg by mouth Daily 10/27/19 24 025 Discontinued sertraline (Zoloft) 25 MG tabletIndications :Anxiety, generalized (CMS/HCC) Take 1 tablet (25 mg) by mouth Daily 30 tablet 02/20/20 025 Discontinued norgestimate-ethi nyl estradiol (Sprintec 28) 0.25-35 MG-MCG tabletIndications : control counseling Take 1 tablet by mouth Daily 28 tablet 12 02/21/20 025 Discontinued metroNIDAZOLE (Flagyl) 500 MG tabletIndications :BV (bacterial vaginosis) Take 1 tablet (500 mg) by mouth in the morning and 1 tablet (500 mg) before bedtime. Do all this for 7 days. Do not drink alcohol while taking this medication. 14 tablet 01/04/20 025 fluconazole (Diflucan) 150 MG tabletIndications :Yeast infection Take 1 tablet (150 mg) by mouth 1 (one) time for 1 dose This is a 1 time dose, take single tablet by mouth. 1 tablet 1 01/04/20 25 025 Encounters Date Type Department Care Team Description 01/24/2025 2:00 PM EDT Office Visit [facility] [address] [place] [phone] Gogo Novoa PA Well woman exam with routine gynecological exam 01/24/2025 Bamboo flowsheet [facility] [place] [address] [place] [phone] Gogo Novoa PA 01/03/20[address] Tele[address] [facility] [address] [place] [address] Waqra Briones DO from Last 3 Months Family History Medical History Relation Name Comments Mental illness Maternal Grandmother Mental illness Mother Relation Name Status Comments Daughter Alive Maternal Grandmother Mother Son Alive Social History Tobacco Use Types Packs/Day Years Used Date Smoking Tobacco: Never Smokeless Tobacco: Never Tobacco Cessation:Counseling Given: Not Answered Alcohol Use Standard Drinks/Week Comments Never 0 [...] 8 oz) 01/24/2025 2:29 PM EDT Height 157.5 cm (5' 2 ) 01/05/2024 2:05 PM EDT Body Mass Index 21.86 01/05/2024 2:05 PM EDT Plan of Treatment Upcoming Encounters Date Type Department Care Team (Late st Contact Info) Description 01/28/2025 9:20 AM EDT Office Visit [facility]OM[facility] [address] [place] [address] Waqar Briones DO [facility] [place], [place] [phone] [place] [place] [address] [facility] [place] Care Teams Rug Hooker Hand Relationship Specialty Start Date End Date Arslan Marcus MD [address] [place] [address] PCP - General Family Medicine 05/03/23
--- OUTSIDE RECORDS SUMMARY | 2025-01-24 20:39 | XMS_ITS | Encounter Summary ---
Author Organization [facility] Address [address] [facility] [place] [address] Care Team Providers Care Javascript Programmer Name Role Phone Arslan Marcus MD Primary Care Provider [phone] Encounter Details Date Type Department Care Team (Late Contact Info) Description 05/05/2023 Orders Only NOM[facility] [address] [place] [phone] Leonor Reyes LPN Social History Tobacco Use [...] 01/28/2025 9:20 AM EDT Office Visit [facility] [address] [facility] [place] [address] Waqar Briones [address] [place] [address] documented as of this encounter Visit Diagnoses Not on filedocumented in this encounter Care Teams Javascript Programmer Relationship Specialty Start Date End Date Arslan Marcus MD [address] [facility] [place] [address] PCP - General Family Medicine 05/03/23 documented as of this encounter
--- OUTSIDE RECORDS SUMMARY | 2025-01-24 20:39 | XMS_ITS | Patient Health Record ---
Author Organization The [facility] in [place] Address [address] [place] [address] Care Team Providers Care [employer] Wheels [employer] Axles Inspector Name Role Phone REINA MARCUS MD Primary Care Provider Allergies No Known Allergies Results Component Value Reference Range Notes CBC AUTO DIFF Reviewed date:02/02/2024 09:57:25 PM Interpretation: Performing Lab: Notes/Report: [facility] , White Blood Count 6.4 4.0-11.0 10 3/uL Red Blood Count 4.39 4.20-5.40 10 6/uL Hemoglobin 13.8 12.0-16.0 g/dL Hematocrit 38.5 36.0-48.0 % Mean Corpuscular Volume 87.7 81.0-99.0 fL Mean Corpuscular Hemoglobin 31.4 26.7-34.0 pg Mean Corpuscular HGB Conc 35.8 29.9-35.2 g/dL Red Cell Distribution Width 11.7 11.0-15.0 % Platelet Count 213 150-450 10 3/uL Mean Platelet Volume 9.9 9.5-13.5 fL Neutrophils Percent Auto 67.2 43.0-75.0 % Lymphocytes Percent Auto 25.6 20.5-60.0 % Monocytes Percent Auto 5.9 1.7-12.0 % Eosinophils Percent Auto 0.6 0.9-7.0 % Basophils Percent Auto 0.5 0.2-2.0 % Immature Granulocytes Pct Auto 0.2 0.0-0.5 % Neutrophils Absolute Auto 4.3 1.4-6.5 10 3/uL Lymphocytes Absolute Auto 1.6 1.2-3.8 10 3/uL Monocytes Absolute Auto 0.4 0.3-0.8 10 3/uL Eosinophils Absolute Auto 0.0 0.0-0.7 10 3/uL Basophils Absolute Auto 0.0 0.0-0.1 10 3/uL Immature Granulocytes Abs Auto 0.01 0.00-0.03 10 3/uL Performing Lab: see note ML - [facility] LB PREG HCG QUAL Reviewed date:02/02/2024 09:57:25 PM Interpretation: Performing Lab: Notes/Report: [facility] , HCG Qualitative NEGATIVE NEGATIVE Performing Lab: see note ML - [facility] LB PROF 14(COMP METB) Reviewed date:02/02/2024 09:57:25 PM Interpretation: Performing Lab: Notes/Report: [facility] , Sodium 143 136-145 mmol/L Potassium 3.6 3.5-5.1 mmol/L Chloride 105 98-107 mmol/L Carbon Dioxide 27.1 21.0-32.0 mmol/L Anion Gap 14.5 Glucose 98 74-106 mg/dL Blood Urea Nitrogen 9.0 7.0-18.0 mg/dL Creatinine 0.91 0.55-1.02 mg/dL Estimated GFR ( Josselyn >60 >=60 Estimated GFR (Non- Sabine >60 >=60 BUN Creatinine Ratio 9.9 Calcium 9.3 8.5-10.1 mg/dL Bilirubin Total 0.6 0.2-1.0 mg/dL Aspartate Amino Transferase 27 15-37 U/L Alanine Aminotransferase 51 14-59 U/L Alkaline Phosphatase 102 46-116 U/L Total Protein 8.0 6.4-8.2 g/dL Albumin Level 4.1 3.4-5.0 g/dL Globulin 3.9 Albumin Globulin Ratio 1.1 Performing Lab: see note ML - [facility] LB ECG 12 lead Reviewed date:02/02/2024 09:57:25 PM Interpretation: Performing Lab: Notes/Report: Source Facility: [facility]-[address] [place] [address] [place] [address] Electrocardiograph Report Signed Patient: ROXIE DURAN MR#: [id number] : 1995 Acct:[id number] Age/Sex: 28 / F ADM Date: 02/02/24 Loc: ER Attending Dr: Ordering Physician: Corinne Caballero Date of Service: 02/02/24 Procedure(s): ECG 12 lead Accession Number(s): [id number] cc: [facility] Test Date: 2024-02-02 Pat Name: ROXIE DURAN Department: Room: - 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 Signed By: 02/02/242125 DD/ 47 TD/TT: Funeral Planner: CT head/brain wo con Reviewed date:02/02/2024 09:57:25 PM Interpretation: Performing Lab: Notes/Report: Source Facility: [place] [address] CT Scan Report Signed Patient: ROXIE DURAN MR#: [id number] : 1995 Acct:[id number] Age/Sex: 28 / F ADM Date: 02/02/24 Loc: ER Attending Dr: Ordering Physician: Corinne Caballero Date of Service: 02/02/24 Procedure(s): CT head/brain wo con Accession Number(s): [id number] cc: Romana Marcus M.D. [place] [address] Patient Name: ROXIE DURAN MRN: [id number] date: 1995 Sex: F Assigned Patient Location: ER Current Patient Location: ER Accession/Order Number: [id number] Exam Date: 02/02/2024 19:16 Report Date: 02/02/2024 19:47 At the request of: CORINNE CABALLERO Procedure: CT head/brain wo con EXAM: CT head/brain wo con HISTORY: Dizziness COMPARISON: None. TECHNIQUE: Axial CT scans through the head were obtained without IV contrast administration. Dose reduction techniques were achieved by using: automated exposure control and/or adjustment of mA and /or kV according to patient size and/or use of iterative reconstruction technique. FINDINGS: There is no acute intracranial hemorrhage or abnormal extra-axial fluid collection. No mass effect or midline shift is seen. There is no evidence of large acute territorial infarction. There is no hydrocephalus. To the limit of CT, the posterior fossa appears unremarkable. The calvaria and extra cranial soft tissues are unremarkable. The visualized orbits show no abnormality. The visualized paranasal sinuses show no air-fluid level. Mastoid air cells are clear. CT/CT head/brain wo con IMPRESSION: No acute intracranial process. Electronically authenticated by: SARAH NGUYEN Date: 02/02/2024 19:47 Dictated By: SARAH NGUYEN M.D. Signed By: 02/02/241948 DD/ 46 TD/TT: Funeral Planner: [place] [address] CT Scan Report Signed Patient: YESSY DURAN MR#: [id number] : 1995 Acct:[id number] Age/Sex: 28 / F ADM Date: 02/02/24 Loc: ER Attending Dr: Ordering Physician: Corinne Caballero Date of Service: 02/02/24 Procedure(s): CT head/brain wo con Accession Number(s): [id number] cc: Romana Marcus M.D. [place] [address] Patient Name: ROXIE DURAN MRN: [id number] date: 1995 Sex: F Assigned Patient Location: ER Current Patient Loca tion: ER Accession/Order Numb er: [id number] Exam Date: 02/02/2024 19:16 Report Date: 02/02/2024 19:47 At the request of: CORINNE CABALLERO Procedure: CT head/b rain wo con EXAM: CT head/brain wo con HISTORY: Dizziness COMPARISON: None. TECHNIQUE: Axial CT scans through the head were obtained without IV contrast administration. Dose reduction techniques were achieved by using: automated exposure control and /or adjustment of mA and /or kV according to patient size and/or use of iterat vivian reconstruction technique. FINDINGS: There is no acute intracranial hemorrhage or abnormal extra-axial fluid collection. No mass effect or midline shift is seen. There is no evidence of large acute territorial infarction. There is no hydrocephalus. To the limit of CT, the posterior fossa appears unremarkable. The calvaria and ext ra cranial soft tissues are unremarkable. The visualized orbits show no abnormality. The visualized paran matthew sinuses show no air-fluid level. Mastoid air cells are clear. C T/CT head/brain wo con IMPRESSION: No acute intracrania l process. Electronically authenticated by: SARAH NGUYEN Date: 02/02/2024 19:47 Dictated By: JOSE LUIS NGUYEN M.D. Signed By: 02/02/241948 DD/ 46 TD/TT: Funeral Planner: Hepatitis B Surf Ab Quant Reviewed date:02/08/2024 05:00:38 PM Interpretation: Performing Lab: Notes/Report: [facility] , Hepatitis B Surf Ab Quant 519.7 Immunity>9.9 mIU/mL Effective February 27, 2024 the reference interval Status of Immunity Anti-HBs Level Consistent with Immunity >9.9 will be changing to: Immunity >10 Inconsistent with Immunity 0.0 - 9.9 Performing Lab: [facility] Varicella-Zoster V Ab, IgG Reviewed date:02/08/2024 05:00:38 PM Interpretation: Performing Lab: Notes/Report: [facility] , Varicella-Zoster V Ab, IgG 948 Immune >165 index A positive result generally indicates exposure to the Negative <135 Positive >165 but it is not indication of active infection or stage Performed at: [facility] Tip Inserter: Candido Hill PhD, Phone: [phone] pathogen or administration of specific immunoglobulins, of disease. Equivocal 135 - 165 [address] [place], [place] [phone] Performing Lab: see note [facility] LB Measles/Mumps/Rubella Immuni ty Reviewed date:02/08/2024 05:00:38 PM Interpretation: Performing Lab: Notes/Report: [facility] , Rubella Antibodies, IgG 1.18 Immune > 0.99 index Non-immune <0.90 Immune >0.99 Equivocal 0.90 - 0.99 Measles Antibodies, IgG 47.0 Immune > 16.4 AU/mL Presence of antibodies to Rubeola is presumptive evidence Negative <13.5 of immunity except when acute infection is suspected. Equivocal 13.5 - 16.4 Positive >16.4 Mumps Abs, IgG 9.9 Immune >10.9 AU/mL Equivocal 9.0 - 10.9 2-4 weeks. Mumps virus or previous vaccination. Tip Inserter: Candido Hill PhD, Phone: [phone] Performed at: [facility] Positive >10.[address] [place] [phone] A second sample should be collected and tested no less than A positive result generally indicates past exposure to Negative <9.0 Performing Lab: see note - [facility] LB QuantiFERON-TB Gold Plus Reviewed date:02/09/2024 12:39:53 PM Interpretation: Performing Lab: Notes/Report: [facility] , QuantiFERON Incubation . Reference Range: . Incubation performed. QuantiFERON-TB Gold Plus Negative Negative Performed at: [facility] IU/mL. individuals should be considered for additional testing [address] [place] [address] [phone] Chemiluminescence immunoassay methodology (ATS/IDSA/CDC Clinical Practice Guidelines, 2017). The No response to M tuberculosis antigens detected. Tip Inserter: Candido Hill PhD, Phone: [phone] reference range is an Antigen minus Nil result of <0.35 Infection with M tuberculosis is unlikely, but high risk QuantiFERON Criteria Comment . radiography, and other medical and diagnostic evaluations. QuantiFERON-TB Gold Plus is a qualitative indirect test for value. The Mitogen tube serves as a control for the test. The QuantiFERON-TB Gold Plus result is determined by M tuberculosis infection (including disease) and is subtracting the Nil value from either TB antigen (Ag) intended for use in conjunction with risk assessment, QuantiFERON TB1 Ag Value 0.01 . IU/mL QuantiFERON TB2 Ag Value 0.01 . IU/mL QuantiFERON Nil Value 0.01 . IU/mL QuantiFERON Mitogen Value >10.00 . IU/mL Performing Lab: see note [facility] [employer] LB UA (CLEAN or CATCH) TAX ADVISOR or M ICRO IF IND. Reviewed date:02/02/2024 09:57:25 PM Interpretation: Performing Lab: Notes/Report: [facility] , Color Urine LT. YELLOW YELLOW Clarity Urine CLEAR CLEAR Specific Dahlgren Urine <=1.005 1.005-1.025 pH Urine 6.0 5.0-9.0 Protein Urine NEGATIVE NEG/TRACE mg/dL Glucose Urine UA NEGATIVE NEGATIVE mg/dL Bilirubin Urine NEGATIVE NEGATIVE Ketones Urine NEGATIVE NEGATIVE mg/dL Blood Urine NEGATIVE NEGATIVE Nitrite Urine NEGATIVE NEGATIVE Urobilinogen Urine 0.2 0.2-1.0 EU/dL Leukocyte Esterase Urine NEGATIVE NEGATIVE Urine Microscopic Indicated NO Performing Lab: see note ML - [facility] Reason For Referral No Information Medications Medication SIG (Take, Route, Frequency, Duration) Notes Start Date End Date Status Diflucan 100 MG 1 tablet Orally Q da y for 10 02/10/2023 Active ZyrTEC-D Allergy & Sinus 5-120 MG 1 tablet as needed Orally Once a day for 30 day(s) 02/10/2023 Active Sertraline HCl 25 MG 1 tablet Orally Onc e a day for 30 days Active Amoxicillin-Pot Clavulanate 875-125 MG 1 tablet Orally every 12 hrs for 10 day(s) 02/09/2023 Active Protonix 40 MG 1 tablet Orally Once a day for 90 days Active Social History Tobacco Use: Social History Observation Description Date Details (start date - stop date) Never Smoker NA - NA Tobacco Use/Smoking Question Answer Notes Patient is a nonsmoker Alcohol Screen (Audit-C) Question Answer Notes Did you have a drink contain ing alcohol in the past year? Yes How often did you have 6 or more drinks on one occasion in the past year? Four or more times a week (4 points) How many drinks did you have on a typical day when you were drinking in the past year? 1 or 2 drinks (0 point) How often did you have a dri nk containing alcohol in the past year? Weekly (3 points) Points 7 Interpretation Positive Problems Problem Type SNOMED Code ICD Code Onset Dates Problem Status W/U Status Risk Notes Problem Insomnia (717570556) Insomnia (G47.00) Active confirmed Problem Acute sinus infection (J01.90) Active confirmed Plan Of Treatment Pending Test Test Name Order Date CMP (COMPLETE METABOLIC PANEL) 3 HEMOGLOBIN A1C (GLYCO) 02/09/2023 IRON, TOTAL 02/09/2023 LIPID PANEL (CHOL/TRIG/HDL/LDL) 02/10/20 23 CBC WITH DIFF 02/09/2023 VITAMIN D, 25 LEVEL (TOTAL) 02/09/2023 Insulin Level 02/09/2023 HEPATITIS PANEL, ACUTE 02/09/2023 HERPES SIMPLEX 1 or 2 IGG 02/09/2023 HIV 1 AND 2 WITH REFLEX 02/09/2023 RPR QUAL REFLEX TO QUANT 02/09/2023 THYROID PANEL (T4/TSH/FREE T3) 3 Insurance Providers Payer Name Payer Address Payer Phone Subscriber Number Group Number Insured Name Patient Relationship to Insured Coverage Start Date Coverage End Date [employer] [place] [employer] [address] [address] [place] [address] [id number] Roxie Duran Self - patient is the insured 3 Medical (General) History Medical History History ICD Code Insomnia G47.00 Syncope R55 Surgical History Surgery Date(Month/Year) Appendectomy
--- OUTSIDE RECORDS SUMMARY | 2025-01-24 20:40 | XMS_ITS | CCD ---
Author Organization [facility] Care Team Providers Care Mitten Sewer Name Role Phone TIM ., DR AVENDANO [...] Briones Attending Unavailable Jonny Briones Admitting Unavailable Jonny Briones Attending Unavailable Romnaa Marcus MD Primary Care Provider [phone] JONNY BRIONES Attending Unavailable JONNY BRIONES Attending Unavailable GOGO TEMPLETON Attending Unavailable GOGO TEMPLETON Attending Unavailable GOGO TEMPLETON Attending Unavailable JONNY BRIONES Attending Unavailable Romana Marcus MD Primary Care Provider Medications Current Medications Medication Drug Class(es) Dates Sig (Normalized) Sig (Original) methylPREDNISolone 4 mg oral tablet (2 sources) Corticosteroid Start: 01-21-2021 Medrol 4 MG as directed Orally As Directed for 6 days Apr, Active Multiple Vitamins-Minerals (Womens Multi Vitamin & Mineral) tablet (2 sources) Start: 01-24-2025 End: 02-23-2025 take 1 tablet by mouth once daily Multiple Vitamins-Minerals (Womens Multi Vitamin & Mineral) tablet Indications: Well woman exam with routine gynecological exam Take 1 tablet by mouth Daily 30 tablet 11 01/24/2025 02/23/2025 Active Completed/Discontinued Medications Medication Drug Class(es) Dates Sig (Normalized) Sig (Original) ethinyl estradiol 0.035 mg / norgestimate 0.25 mg oral tablet (6 sources) Progestin, Estrogen Start: 02-21-2024 End: 02-20-2025 take 1 tablet by mouth once daily norgestimate-ethiny l estradiol (Sprintec 28) 0.25-35 MG-MCG tablet Indications: control counseling Take 1 tablet by mouth Daily 28 tablet 12 02/21/2024 01/24/2025 Discontinued [place]field-Linyah (1 source) [place]-Linyah Not-Taking pantoprazole 40 mg delayed release oral tablet (6 sources) Proton Pump Inhibitor Start: 10-27-2023 End: 01-24-2025 take 1 tablet by mouth once daily pantoprazole (ProtoNix) 40 MG EC tablet Take 40 mg by mouth Daily 10/27/2023 01/24/2025 Discontinued sertraline 25 mg oral tablet (7 sources) Serotonin Reuptake Inhibitor Start: 02-20-2024 End: 02-19-2025 take 1 tablet by mouth once daily sertraline (Zoloft) 25 MG tablet Indications: Anxiety, generalized (CMS/HCC) Take 1 tablet (25 mg) by mouth Daily 30 tablet 11 02/20/2024 01/24/2025 Discontinued Sertraline HCl N ot-Taking Triamcinolone (1 source) Corticosteroid Start: 01-21-2021 KENALOG - 10 m g December, 40 mg Problems Active Problems Problem Classification Problem Date Documented Date Episodic/Chronic Administrative/social admission (2 sources) Patient encounter status; Translations: [Other specified counseling] 06-25-2024 Episodic Immunizations and screening for infectious disease (3 sources) Encounter for screening for human papillomavirus (HPV); Translations: [Exposure to sexually transmissible disorder] Onset: 12-19-2022 06-25-2024 Episodic Menstrual disorders (2 sources) Irregular periods; Translations: [Irregular menstruation, unspecified] 06-26-2024 Chronic Other female genital disorders (2 sources) Vaginal discharge; Translations: [Other specified noninflammatory disorders of vagina] 06-25-2024 Episodic Other screening for suspected conditions (not [...] Other specified noninflammatory disorders of vagina; Translations: [OTH SPEC NONINFLAMMATORY D/O VAGINA] Onset: 12-30-2021 Episodic Results Test Name Value Interpretation Reference Range Facility [facility] 11-07-2023 L Specimen: [id number] Received: 11/08/23 Status: FRANKIE Wright Num: [id number] Spec Type: Surgical Subm Dr: Jonny Briones Tissues: A Fallopian Tube - Sterilization (BILATERAL FT) Procedures: HE/2, Gross/Micro L2 Age/ Patient Sex Location Account Attending Physician Amelia Duran 28/F [facility] [id number] Jonny Brinoes SPEC NUM: [id number] RECD: 11/08/23 STATUS: FRANKIE WRIGHT NUM: [id number] STEPHIE: 11/07/[address]: Jonny Briones ENTERED: [...] of each tube reveals a patent lumen. Manufacturing Engineer [employer]otive sections are submitted in two cassettes labeled A1-A2. CPT Codes 38641 ---- ---- Specimen: [id number] Received: 11/08/23 Status: FRANKIE Wright Num: [id number] Spec Type: Surgical Subm Dr: Jonny Briones Tissues: A Fallopian Tube - Sterilization (BILATERAL FT) Procedures: RENUKA/Rodolfo Fleming/Sonia L2 ---- Patient: Amelia Duran [id number] (Continued) ---- Signed (signature on file) Abdirashid Lentz MD 11/09/23 1705 Normal [facility] Todd 10-18-2023 L Specimen: [id number] Received: 10/19/23 Status: FRANKIE Wright Num: [id number] Spec Type: Surgical Subm Dr: Jonny Briones Tissues: A Endometrium - Biopsy (ENDO EMBX) Procedures: HE/2, Gross/Micro L4 Age/ Patient Sex Location Account Attending Physician Amelia Duran 28/F [facility] [id number] Jonny Briones SPEC NUM: [id number] RECD: 10/19/23 STATUS: FRANKIE WRGIHT NUM: [id number] STEPHIE: 10/18/23 DR: Jonny Briones ENTERED: 10/19/[address] [facility] [address]: Andrew,Lab SPEC TYPE: Surgical DEPT: ANA [...] in one cassette labeled A1. CPT Codes 14553 ---- ---- Specimen: [id number] Received: 10/19/23-0 Status: FRANKIE Wright Num: [id number] Spec Type: Surgical Subm Dr: Jonny Briones Tissues: A Endometrium - Biopsy (ENDO EMBX) Procedures: HE/Bernadette, Gross/Micro L4 ---- Patient: Amelia Duran [id number] (Continued) ---- Signed (signature on file) Bin Sanchez MD 10/23/232202 Normal [facility] HELICOBACTER PYLORI AB IGGon 10-13-2022 H. PYLORI IGG ABS 0.21 Index Value Normal 0.00-0.79 T [facility] Comment on above: Result Comment: Nega tive <0.80 Equivocal 0.80 - 0.89 Positive >0.89 Performed By: #### H PYLORG #### [facility] [address] [address] [address] Ning Lentz INSULINon 10-13-2022 Insulin 13.0 uIU/mL Normal 2.6-24.9 [facility] Comment on above: Performed By: #### I NSULIN #### [facility] [address] [address] [address] Ning Lentz CBC AUTO DIFFon 10-12-2022 BASO # 0.0 103/ul Normal 0.0-0.1 [facility] Comment on above: Performed By: #### C BC #### [facility] [address] [address] [address] Ning Lentz Basophils/100 WBC (Bld) 0.4 % Normal 0.2-2.0 [facility] Comment on above: Performed By: #### C BC #### [facility] [address] [address] [address] Ning Lentz EO # 0.1 103/ul Normal 0.0-0.7 [facility] Comment on above: Performed By: #### C BC #### [facility] [address] [place] [address] Dr. Ning Lentz Eosinophils/100 WBC (Bld) 1.8 % Normal 0.9-7.0 [facility] Comment on above: Performed By: #### C BC #### [facility] [address] [place] [address] Dr. Ning Lentz Erythrocyte distribution width (RBC) [Ratio] 12.0 % Normal 11.0-15.0 [facility] Comment on above: Performed By: #### C BC #### [facility] [address] [place] [address] Dr. Ning Lentz Hematocrit (Bld) [Volume fraction] 37.8 % Normal 36.0-48.0 [facility] Comment on above: Performed By: #### C BC #### [facility] [address] [place] [address] Dr. Ning Lentz Hemoglobin (Bld) [Mass/Vol] 13.0 g/dL Normal 12.0-16.0 [facility] Comment on above: Performed By: #### C BC #### [facility] [address] [place] [address] Dr. Ning Lentz IG # 0.01 10e3/ul Normal 0.00-0.03 [facility] Comment on above: Performed By: #### C BC #### [facility] [address] [place] [address] Dr. Ning Lentz IG % 0.2 % Normal 0.0-0.5 [facility] Comment on above: Performed By: #### C BC #### [facility] [address] [place] [address] Dr. Ning Lentz LYMPH # 1.7 103/ul Normal 1.2-3.8 [facility] Comment on above: Performed By: #### C BC #### [facility] [address] [place] [address] Dr. Ning Lentz Lymphocytes/100 WBC (Bld) 33.9 % Normal 20.5-60.0 [facility] Comment on above: Performed By: #### C BC #### [facility] [address] [place] [address] Dr. Ning Lentz MANUAL DIFF REQ NO Normal [facility] Comment on above: Performed By: #### C BC #### [facility] [address] [place] [address] Dr. Ning Lentz MCH (RBC) [Entitic mass] 30.3 pg Normal 26.7-34.0 [facility] Comment on above: Performed By: #### C BC #### [facility] [address] [place] [address] Dr. Ning Lentz MCHC (RBC) [Mass/Vol] 34.4 g/dL Normal 29.9-35.2 [facility] Comment on above: Performed By: #### C BC #### [facility] [address] [place] [address] Dr. Ning Lentz MCV (RBC) [Entitic vol] 88.1 fL Normal 81.0-99.0 [facility] Comment on above: Performed By: #### C BC #### [facility] [address] [place] [address] Dr. Ning Lentz MONO # 0.4 103/ul Normal 0.3-0.8 [facility] Comment on above: Performed By: #### C BC #### [facility] [address] [place] [address] Dr. Ning Lentz Monocytes/100 WBC (Bld) 8.9 % Normal 1.7-12.0 [facility] Comment on above: Performed By: #### C BC #### [facility] [address] [place] [address] Dr. Ning Lentz NEUT # 2.7 103/ul Normal 1.4-6.5 [facility] Comment on above: Performed By: #### C BC #### [facility] [address] [place] [address] Dr. Ning Lentz Neutrophils/100 WBC (Bld) 54.8 % Normal 43.0-75.0 [facility] Comment on above: Performed By: #### C BC #### [facility] [address] [place] [address] Dr. Ning Lentz Platelet mean volume (Bld) [Entitic vol] 10.2 fL Normal 9.5-13.5 [facility] Comment on above: Performed By: #### C BC #### [facility] [address] [place] [address] Dr. Ning Lentz PLT 215 103/ul Normal 150-450 [facility] Comment on above: Performed By: #### C BC #### [facility] [address] [place] [address] Dr. Ning Lentz RBC 4.29 106/ul Normal 4.20-5.40 [facility] Comment on above: Performed By: #### C BC #### [facility] [address] [place] [address] Dr. Ning Lentz WBC 4.9 103/ul Normal 4.0-11.0 [facility] Comment on above: Performed By: #### C BC #### [facility] [address] [place] [address] Dr. Ning Lentz FREE THYROXINE INDEX T7on FTI 2.37 Normal 1.30-4.50 [facility] Comment on above: Performed By: #### T 7, CMP, TSH, LIPID #### [facility] [address] [place] [address] Dr. Ning Lentz T3U 30.0 % Normal 30.0-39.0 [facility] Comment on above: Performed By: #### T 7, CMP, TSH, LIPID #### [facility] [address] [address] [address] Ning Lentz T4 [Mass/Vol] 7.90 ug/dL Normal 4.80-13.90 [facility] Comment on above: Performed By: #### T 7, CMP, TSH, LIPID #### [facility] [address] [address] [address] Ning Lentz GLYCOHEMOGLOBIN A1Con 2022 ADA RECOMMENDATION SEE BELOW Normal [facility] Comment on above: Result Comment: ADA RECOMMENDED LIMIT 4.0 - 6.0 ADA THERAPEUTIC TARGET < 7.0 ACTION SUGGESTED > 7.0 Performed By: #### A 1C #### [facility] [address] [address] [address] Ning Lentz Glucose [Mass/Vol] 88 mg/dL Normal [facility] Comment on above: Performed By: #### A 1C #### [facility] [address] [address] [address] Ning Lentz HbA1c (Bld) [Mass fraction] 4.7 % Normal 4.5-6.2 [facility] Comment on above: Performed By: #### A 1C #### [facility] [address] [address] [address] Ning Lentz IRONon 10-12-2022 Iron [Mass/Vol] 131.0 ug/dL Normal 50.0-170.0 [facility] Comment on above: Performed By: #### I INDU #### [facility] [address] [place] [address] Dr. Ning Lentz LIPID PROFILEon 10-12-2022 CHOL-HDL RATIO NORM SEE BELOW Normal [facility] Comment on above: Result Comment: 3.3 - 4.4 LOW RISK 4.4 - 7.1 AVERAGE RISK 7.1 - 11.0 MODERATE RISK >11.0 HIGH RISK Performed By: #### T 7, CMP, TSH, LIPID #### [facility] [address] [address] [address] Ning Lentz Cholesterol [Mass/Vol] 169 mg/dL Normal <=200 [facility] Comment on above: Performed By: #### T 7, CMP, TSH, LIPID #### [facility] [address] [address] [address] Ning Lentz Cholesterol in HDL [Mass/Vol] 52 mg/dL Normal 40-60 [facility] Comment on above: Performed By: #### T 7, CMP, TSH, LIPID #### [facility] [address] [address] [address] Ning Lentz Cholesterol in LDL [Mass/Vol] 84.6 mg/dL Normal [facility] Comment on above: Performed By: #### T 7, CMP, TSH, LIPID #### [facility] [address] [address] [address] Ning Lentz Cholesterol.total/Ch olesterol in HDL [Mass ratio] 3.3 {ratio} Normal [facility] Comment on above: Performed By: #### T 7, CMP, TSH, LIPID #### [facility] [address] [address] [address] Ning Lentz HDL NORMAL > or = 60 mg/dl - LO W CARDIOVASCULAR RISK <40 mg/dl - HIGH CARDIOVASCULAR RISK Normal [facility] Comment on above: Performed By: #### T 7, CMP, TSH, LIPID #### [facility] [address] [address] [address] Ning Lentz LDL CALC NORMAL SEE BELOW Normal [facility] Comment on above: Result Comment: <100 mg/dl OPTIMAL 100 - 129 mg/dl NEAR OR ABOVE OPTIMAL 130 - 159 mg/dl BORDERLINE HIGH 160 - 189 mg/dl HIGH >190 mg/dl VERY HIGH Performed By: #### T 7, CMP, TSH, LIPID #### [facility] [address] [address] [address] Ning Lentz Triglyceride [Mass/Vol] 162 mg/dL Critically high <=150 [facility] Comment on above: Performed By: #### T 7, CMP, TSH, LIPID #### [facility] [address] [address] [address] Ning Lentz VLDL CALC 32.4 mg/dL Normal [facility] Comment on above: Performed By: #### T 7, CMP, TSH, LIPID #### [facility] [address] [address] [address] Ning Lentz PROF 14(COMP METB)on 023 Albumin [Mass/Vol] 3.9 g/dL Normal 3.4-5.0 [facility] Comment on above: Performed By: #### T 7, CMP, TSH, LIPID #### [facility] [address] [address] [address] Ning Lentz Albumin/Globulin [Mass ratio] 1.0 {ratio} Normal [facility] Comment on above: Performed By: #### T 7, CMP, TSH, LIPID #### [facility] [address] [address] [address] Ning Lentz ALP [Catalytic activity/Vol] 70 U/L Normal 46-116 [facility] Comment on above: Performed By: #### T 7, CMP, TSH, LIPID #### [facility] [address] [place] [address] Dr. Ning Lentz ALT [Catalytic activity/Vol] 34 U/L Normal 14-59 [facility] Comment on above: Performed By: #### T 7, CMP, TSH, LIPID #### [facility] [address] [address] [address] Ning Lentz Anion gap [Moles/Vol] 12.5 mmol/L Normal [facility] Comment on above: Performed By: #### T 7, CMP, TSH, LIPID #### [facility] [address] [address] [address] Ning Lentz AST [Catalytic activity/Vol] 22 U/L Normal 15-37 [facility] Comment on above: Performed By: #### T 7, CMP, TSH, LIPID #### [facility] [address] [address] [address] Ning Lentz Bilirubin [Mass/Vol] 0.3 mg/dL Normal 0.2-1.0 [facility] Comment on above: Performed By: #### T 7, CMP, TSH, LIPID #### [facility] [address] [address] [address] Ning Lentz Calcium [Mass/Vol] 9.4 mg/dL Normal 8.5-10.1 [facility] Comment on above: Performed By: #### T 7, CMP, TSH, LIPID #### [facility] [address] [address] [address] Ning Lentz Chloride [Moles/Vol] 104 mmol/L Normal 98-107 [facility] Comment on above: Performed By: #### T 7, CMP, TSH, LIPID #### [facility] [address] [address] [address] Ning Lentz CO2 [Moles/Vol] 29.3 mmol/L Normal 21.0-32.0 [facility] Comment on above: Performed By: #### T 7, CMP, TSH, LIPID #### [facility] [address] [place] [address] Dr. Ning Lentz Creatinine [Mass/Vol] 0.77 mg/dL Normal 0.55-1.02 [facility] Comment on above: Performed By: #### T 7, CMP, TSH, LIPID #### [facility] [address] [place] [address] Dr. Ning Lentz EGFR-AF BOLIVIAN >60 Normal >=60 [facility] Comment on above: Performed By: #### T 7, CMP, TSH, LIPID #### [facility] [address] [place] [address] Dr. Ning Lentz EGFR-NON AF BOLIVIAN >60 Normal >=60 [facility] Comment on above: Performed By: #### T 7, CMP, TSH, LIPID #### [facility] [address] [place] [address] Dr. Ning Lentz Globulin (S) [Mass/Vol] 3.8 g/dL Normal [facility] Comment on above: Performed By: #### T 7, CMP, TSH, LIPID #### [facility] [address] [place] [address] Dr. Ning Lentz Glucose [Mass/Vol] 97 mg/dL Normal 74-106 [facility] Comment on above: Performed By: #### T 7, CMP, TSH, LIPID #### [facility] [address] [address] [address] Ning Lentz Potassium [Moles/Vol] 3.8 mmol/L Normal 3.5-5.1 [facility] Comment on above: Performed By: #### T 7, CMP, TSH, LIPID #### [facility] [address] [address] [address] Ning Lentz Protein [Mass/Vol] 7.7 g/dL Normal 6.4-8.2 [facility] Comment on above: Performed By: #### T 7, CMP, TSH, LIPID #### [facility] [address] [address] [address] Ning Lentz Sodium [Moles/Vol] 142 mmol/L Normal 136-145 [facility] Comment on above: Performed By: #### T 7, CMP, TSH, LIPID #### [facility] [address] [place] [address] Dr. Ning Lentz Urea nitrogen [Mass/Vol] 8.0 mg/dL Normal 7.0-18.0 [facility] Comment on above: Performed By: #### T 7, CMP, TSH, LIPID #### [facility] [address] [place] [address] Dr. Ning Lentz Urea nitrogen/Creatinine [Mass ratio] 10.4 mg/mg Normal [facility] Comment on above: Performed By: #### T 7, CMP, TSH, LIPID #### [facility] [address] [place] [address] Dr. Ning Lentz TSHon 10-12-2022 TSH 4.458 uIU/mL Critically high 0.358-3.740 [facility] Comment on above: Performed By: #### T 7, CMP, TSH, LIPID #### [facility] [address] [place] [address] Dr. 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 Typing was confirmed by monoclonal antibody microscopic immunofluorescence. Performed By: #### H SVCUL #### [facility] [address] [address] [address] Ning Lentz Vital Signs Date Time Vital Sign Value Performing Clinician Facility 01-24-2025 14:29-0400 Body mass index (BMI) [Ratio] 21.86 kg/m2 Gogo KENNEDY Work Phone: [facility] 01-24-2025 14:29-0400 Body weight 54.2 kg Gogo Templeton PA Work Phone: [facility] 01-24-2025 14:29-0400 Diastolic blood pressure 70 mm[Hg] Gogo Templeton PA Work Phone: [facility] 01-24-2025 14:29-0400 Systolic blood pressure 100 mm[Hg] Gogo Templeton PA Work Phone: [facility] 05-04-2023 15:30-0400 Body height 158.75 cm Linda Thi Other [facility] Other 05-04-2023 15:30-0400 Body mass index (BMI) [Ratio] 23.68 kg/m2 Linda Singhmond Other [facility] Other 05-04-2023 15:30-0400 Body temperature 99 [degF] Linda iSnghmond Other [facility] Other 05-04-2023 15:30-0400 Body weight 59.69 kg Linda Singhmond Other [facility] Other 05-04-2023 15:30-0400 Diastolic blood pressure 60 mm[Hg] Linda Singhmond Other [facility] Other 05-04-2023 15:30-0400 Respiratory rate 18 /min Linda Singhmond Other [facility] Other 05-04-2023 15:30-0400 SaO2% (BldA) [Mass fraction] 98 % Linda Ness Other [facility] Other 05-04-2023 15:30-0400 Systolic blood pressure 122 mm[Hg] Linda Ness Other [facility] Other Encounters Encounter Date Encounter Type Care Provider Facility Start: 01-24-2025 End: 01-24-2025 Bamboo flowsheet Gogo KENNEDY Work Phone: [facility] Start: 01-24-2025 End: 01-24-2025 Bamboo flowsheet Gogo KENNEDY Work Phone: [facility] Start: 01-24-2025 End: 01-24-2025 Patient encounter procedure Gogo KENNEDY Work Phone: [facility] Start: 01-24-2025 End: 01-24-2025 Periodic preventive med est patient 18-39 yrs Gogo KENNEDY Work Phone: [facility] Comment on above: Well woman exam with routine gynecological exam Start: 06-25-2024 End: 06-25-2024 Office outpatient visit 15 minutes Jonny Anali DO Work Phone: [facility] Comment on above: Encounter to discuss procedure; Vaginal discharge; STD exposure; Irregular periods/menstrual cycles Start: 06-25-2024 End: 06-25-2024 ambulatory JONNY ANALI Not Available Start: 06-25-2024 End: 06-25-2024 Bamboo flowsheet Jonny Anali DO Work Phone: [facility] Start: 06-25-2024 End: 06-25-2024 Bamboo flowsheet Jonny Anali DO Work Phone: [facility] Start: 01-05-2024 End: 01-05-2024 ambulatory GOGO TEMPLETON Not Available Start: 12-01-2023 End: 12-01-2023 ambulatory GOGO TEMPLETON Not Available Start: 11-21-2023 End: 11-21-2023 ambulatory GOGO TEMPELTON Not Available Start: 11-07-2023 End: 11-07-2023 ambulatory Jonny Briones Facility:[facility] Start: 10-18-2023 End: 10-18-2023 ambulatory Jonny Meneseso [facility] Work Phone: Start: 10-18-2023 End: 10-18-2023 Departed Referred Jonny Briones Work Phone: [facility] Start: 10-18-2023 End: 10-18-2023 ambulatory JONNY MENESESO Not Available Start: 09-21-2023 End: 09-21-2023 ambulatory JONNY MENESESO Not Available Start: 05-04-2023 End: 05-04-2023 ambulatory Linda Ness Other [facility] Other Start: 05-04-2023 Office outpatient vi sit 15 minutes Linda Ness [facility] Start: 12-15-2022 End: 12-15-[address] ROMANA MARCUS . Facility:[facility] Start: 10-28-[address] ROMANA MARCUS . Facili ty:[facility] Start: 10-15-2022 Encounter for genera l adult medical examination without abnormal findings DR ROMANA MARCUS . [facility] Start: 10-12-2022 End: 10-13-[address] ROMANA MARCUS . Facility:[facility] Start: 10-12-2022 End: 10-13-2022 Encounter for general adult medical examination without abnormal findings DR ROMANA MARCUS . Facility:[facility] Start: 12-30-2021 End: 12-30-[address] JOEL SILVER . Facility:[facility] Plan of Treatment Date Care Activity Detail Author Start: 01-28-2025 End: 01-28-2025 Patient encounter procedure 01/28/2025 9:20 AM EDT Office Visit [facility] [address] [place] [id number] Jonny Briones, DO [address] [place] [address] [facility] Start: 06-25-2024 End: 06-25-2024 Patient encounter procedure 06/25/2024 3:50 PM EDT Office Visit [facility] [address] [place] [id number] Jonny Briones, [address] [place] [address] Ar[address] [facility] Comment on above: Arrived CHLAMYDIA TRACHOMATI S (GENITO/STI) CHLAMYDIA TRACHOMATIS (GENITO/STI) Lab Routine STD exposure Ordered: 06/25/2024 [facility] Comment on above: Ordered: 06/25/2024 Cytology Cervical or vaginal smear or scraping study Pap Smear Pathology and Cytology Routine Well woman exam with routine gynecological exam Ordered: 01/24/2025 [facility] Work Phone: Comment on above: Ordered: 01/24/2025 Human papilloma viru s DNA [Presence] in Unspecified specimen by Probe with amplification HPV DNA probe, amplified Microbiology Routine Well woman exam with routine gynecological exam Ordered: 01/24/2025 [facility] Comment on above: Ordered: 01/24/2025 Neisseria gonorrhoea e DNA [Presence] in Unspecified specimen by JAVON with probe detection Neisseria gonorrhea DNA probe, direct Lab Routine STD exposure Ordered: 06/25/2024 [facility] Comment on above: Ordered: 06/25/2024 SURESWAB(R) ADVANCED VAGINITIS PLUS, TMA SURESWAB(R) ADVANCED VAGINITIS PLUS, TMA Pathology and Cytology Routine Vaginal discharge Ordered: 06/25/2024 [facility] Work Phone: Comment on above: Ordered: 06/25/2024 Payers Date Payer Category Payer Private Health Insurance [employer] [id number] 2024 Unknown [id number] 2023 Self-pay 2022 Medicaid [employer] [place] [id number] 1993 Unknown [id number] [id number]. 593 1993 Unknown [id number] 2.16840.1.525013.3.579.2. 593 1993 Unknown [id number] 2.16840.1.571101.3.579.2. 593 1993 Unknown [id number] 2.16840.1.610414.3.579.2. 593 1993 Unknown [id number] 2.16840.1.133666.3.579.2. 1259 1993 Unknown [id number] 2.16840.1.276524.3.579.2. 1259 1993 Unknown [id number] 2.16840.1.556302.3.579.2. 1259 1993 Unknown [id number] 2.16840.1.024385.3.579.2. 1259 1993 Unknown [id number] 2.16840.1.375664.3.579.2. 1259 1993 Unknown [id number] [id number]. 1259 1959 Medicaid [id number] 1961 Self-pay [id number] 1959 Unknown [id number] Unknown [id number] Social History Date Type Detail Facility Unknown if ever smoked [facility] [employer] Other Start: 12-01-2023 End: 01-05-2024 Sex Assigned At [place] [facility] [employer] Other Start: 1995 Sex Assigned At Female [facility] Start: 04-22-2023 Tobacco smoking stat [facility] Never smoked tobacco [facility] Start: 04-22-2023 Tobacco use and exposure Smokeless tobacco non-user [facility] Start: 01-05-2024 End: 12-05-2024 Alcoholic beverage intake Lifetime non-drinker (finding) [facility] Start: 12-01-2023 End: 01-05-2024 History of Social function [facility] Start: 1995 Sex assigned at Not on file [facility] History of Present illness Narrative 01-24-2025 BRENT Schaefer - 01/24/2025 2:00 PM EDT Note Date & Type Note Facility 01-24-2025 History of Presen t illness Narrative Reason for Appointment: Patient ID: Amelia Duran [...] Past Surgical History: Procedure Laterality Date APPENDECTOMY 2010 CERVICAL BIOPSY W/ LOOP ELECTRODE EXCISION 2018 [...] nursing note reviewed. Exam conducted with a field administrator present. Vitals: Estimated body mass index is 24.33 kg/m as calculated from the following: Height as [...] of: BRENT Schaefer documented in this encounter [facility] History of Present illness Narrative 06-25-2024 Leonor Reyes LPN - 06/25/2024 3:50 PM EDT Note Date & Type Note Facility 06-25-2024 History of Presen t illness Narrative Reason for Appointment: Patient ID: Amelia Duran is a 29 y.o. female who presents for Discuss Bleeding and cramping and STI Screening Patient presents today for Consult appointment. MEDICATIONS Current Outpatient Medications Medication Instructions norgestimate-ethinyl [...] Past Surgical History: Procedure Laterality Date APPENDECTOMY 2010 CERVICAL BIOPSY W/ LOOP ELECTRODE EXCISION 2018 LEEP ENDOMETRIAL ABLATION 11/07/2023 SALPINGECTOMY Bilateral 11/07/2023 michael with hysteroscopy TUBAL LIGATION Bilateral REVIEW OF SYSTEMS Review of Systems: Review of Systems Genitourinary: Positive for menstrual problem and vaginal bleeding. All other systems reviewed and are negative. OBJECTIVE Objective: Physical Exam Constitutional: Appearance: Normal appearance. She is well-developed. Genitourinary: Vulva normal. Cardiovascular: Rate and Rhythm: Normal rate and regular rhythm. Pulmonary: Effort: Pulmonary effort is normal. Breath sounds: Normal breath sounds. Abdominal: General: Bowel sounds are normal. There is no distension. Palpations: Abdomen is soft. Tenderness: There is no abdominal tenderness. There is no guarding or rebound. Musculoskeletal: General: No swelling. Normal range of motion. Right lower leg: No edema. Left lower leg: No edema. Neurological: Mental Status: She is alert and oriented to person, place, and time. Skin: General: Skin is warm and dry. Psychiatric: Mood and Affect: Mood normal. Behavior: Behavior normal. Vitals and nursing note reviewed. Exam conducted with a field administrator present. Vitals: Estimated body mass index is 24.33 kg/m as calculated from the following: Height as of 01/05/24: 5' 2 . Weight as of 01/05/24: 133 lb. BP: No LMP recorded. Patient has had an ablation. ASSESSMENT & PLAN ICD-10-CM 1. Encounter to discuss procedure Z71.89 2. Vaginal discharge N89.8 POCT urinalysis dipstick manually resulted SURESWAB(R) ADVANCED VAGINITIS PLUS, TMA 3. STD exposure Z20.2 CHLAMYDIA TRACHOMATIS (GENITO/STI) Neisseria gonorrhea DNA probe, direct Patient presents today to discuss past surgeries and options for irregular/painful menstrual cycles. Patient voiced that she previously had endometrial ablation and bilateral salpingectomy, which has failed and patient is still having painful cycles every 2 weeks. Patient voiced that she also has thick/pink discharge daily. Discussed with patient that since she had a failed ablation her next option surgically would be a hysterectomy. Patient will consider surgical management, but at this time patient was given 2 months supply of Slynd samples and will reach out to office if she desires to have refills on medication. Patient to reach out to office with any further questions/concerns. Documented by Leonor Reyes LPN on behalf of: Jonny Briones DO documented in this encounter [facility] Evaluation note 05-04-2023 Note Date & Type [...] no improvement in 2 to 3 days Tuee Other Evaluation note Note Date & Type Note Facility Evaluation note No assessment information availa [facility] Work Phone: Evaluation note Note Date & Type Note Facility Evaluation note Diagnosis Encounter to discuss procedure Vaginal discharge Leukorrhea, not specified as infective STD exposure Irregular periods/menstrual cycles documented in this encounter [facility] Evaluation note Note Date & Type Note Facility Evaluation note Diagnosis Well woman exam with routine gynecological exam Routine gynecological examination documented in this encounter [facility] History general Narrative - Reported Note Date & Type Note Facility History general Narrative - Reported Type Medical History chronic depression Medical History anxiety Surgical History appendectomy Surgical History LEEP Surgical History PE tubes Hospitalization History See Above Tue[facility] Other Summary Purpose Family History No Family History Records FoundNo Family History Records FoundNo Family History Records Found Advance Directives No Advanced Directives Records FoundNo Advanced Directives Records FoundNo Advanced Directives Records Found Additional Source Comments INFORMATION SOURCE (unrecogn ized section and content) DATE CREATED AUTHOR 12/19/2022 [facility] DATE CREATED AUTHOR AUTHOR'S ORGANIZ ATION 02/19/2024 [facility] DATE CREATED AUTHOR AUTHOR'S ORGANIZ ATION 06/26/2024 [facility] EPIC REASON FOR VISIT (unrecogniz ed section and content) Reason Comments Discuss Bleeding and cramping STI Screening Reason Comments Well Women Visit Care Teams (unrecognized sec tion and content) Team Status: Inactive Member Role Status Dates Jonny Briones Attending Provider Active Start: 2023 End: October 18, 2023 Mitten Sewer Relationship Specialty Start Date End Date Romana Marcus MD [address] [place] [address] PCP - General Family Medicine 05/03/23 Mitten Sewer Relationship Specialty Start Date End Date Romana Marcus MD [address] [place] [address] PCP - General Family Medicine 05/03/23 Mitten Sewer Relationship Specialty Start Date End Date Romana Marcus MD [address] [place] [address] PCP - General Family Medicine 05/03/23 Mitten Sewer Relationship Specialty Start Date End Date Romana Marcus MD [address] [place] [address] PCP - General Family Medicine 05/03/23 Goals (unrecognized section and content) Goals may [...] BE BASED ON THE PRIMARY CLINICAL RECORDS. [facility] [employer] [facility]. provides no warranty or guarantee of the accuracy or completeness of information in this document.
== END 2025-01-24 20:33 | disposition home or self-care (01) ==
LOC: LAB 20:32
PROVIDERS: PCP Family Medicine; Visit Provider Physician Assistant
DX: Z01.419 Encounter for gynecological examination (general) (routine) without abnormal findings (principal)
CPT/HCPCS: 87624; 88175